=== PATIENT | male | born 1970 | race Caucasian/White ===

== ENCOUNTER 2022-11-20 19:04 | Emergency (ER) | payer OTHER, SELFPAY ==
[2022-11-20 19:14] VITALS: BP 175/64; PULSE 51; RESP 18; TEMP 37.6; O2SAT 98
--- NOTE | 2022-11-20 19:14 | ED.GENADULT ---
HPI - General Adult General Chief complaint: Skin/Abscess/Foreign Body Stated complaint: man issue/tired Time Seen by Provider: 11/20/22 19:14 Source: patient, RN notes reviewed and old records reviewed Mode of arrival: ambulatory Limitations: no limitations History of Present Illness HPI narrative: 52-year-old male presents to the [facility] with complaints of pain, redness from the peroneal area. Patient states it has been going on for over week. Started draining thick purulent drainage about a week ago. States that he feels weak and tired. Has a history of diabetes, GERD, hypertension Related Data Home Medications Medication Instructions Recorded Confirmed lisinopril 10 1 tablet PO DAILY 04/15/19 11/20/22 mg-hydrochlorothiazide 12.5 mg tablet pantoprazole 40 mg tablet,delayed 40 mg PO QAM 04/15/19 11/20/22 release (Protonix) Allergies Allergy/AdvReac Type Severity Reaction Status Date / Time No Known Allergies Allergy Verified 11/20/22 19:20 Review of Systems Review of Systems: All systems reviewed & are unremarkable except as noted in HPI and below Constitutional: Constitutional: Reports no additional constitutional complaints Eyes: Eyes: Reports no additional eye complaints ENT: Reports system reviewed and no additional complaints, except as documented Cardiovascular: Cardiovascular: Reports no additional cardiovascular complaints, Denies chest pain and Denies dyspnea Respiratory: Respiratory: Reports no additional respiratory complaints, Denies chest congestion, Denies cough and Denies dyspnea Gastrointestinal: Gastrointestinal: Reports no additional gastrointestinal complaints, Denies abdominal pain, Denies nausea and Denies vomiting Musculoskeletal: Musculoskeletal: Reports no additional musculoskeletal complaints Integumentary/Breasts: Skin/Breast: Reports as per HPI Neurologic: Reports system reviewed and no additional complaints, except as documented Psychiatric: Psychiatric: Reports no additional psychiatric complaints Allergic/Immunologic: Allergic/Immunologic: Reports no additional allergic/immunologic complaints [facility] Past Medical History Medical History Diabetes mellitus GERD (gastroesophageal reflux disease) HTN (hypertension) Surgical History Surgical History H/O vasectomy Family History Family History Mother Diabetes mellitus Kidney disease Father Malignant neoplasm of prostate Hypertension COPD (chronic obstructive pulmonary disease) Social History Social History Smoking status: Never smoker Alcohol intake: never Substance use: never Substance use type: does not use Living arrangements: with family Occupation/Education: occupation Gender identity (if verbalized by the patient): Male Comments At the time of my signature, I reviewed and agree with the nursing past medical, surgical, social, and family history. There is no relevant family history pertinent to the patient complaint. Exam Const: General: cooperative, no acute distress, well developed, alert, ill appearing acutely (Mild), uncomfortable, well nourished and obese Nutritional Appearance: well nourished and obese Orientation/consciousness: patient oriented x3 Limitations: no limitations HENMT: Head: normal to inspection Ears: hearing grossly normal bilaterally and external ears normal Face/Nose/Sinus: Normal external nose present, Normal nares present, Normal nasal mucous membranes and turbinates present and normal facial exam Face and sinus: normal facial exam Eyes: General: appearance normal, both eyes and all related structures Alignment and Position: alignment normal Periorbital: periorbital findings normal Pupils: Equal, round and reactive pupils presen
== END 2022-11-20 19:30 | disposition short-term general hospital (02) ==
LOC: EXPTROY 19:08
PROVIDERS: Emergency Provider Nurse Practitioner; PCP Family Medicine
DX: L03.317 Cellulitis of buttock (principal); E11.9 Type 2 diabetes mellitus without complications; K21.9 Gastro-esophageal reflux disease without esophagitis; I10 Essential (primary) hypertension; Z98.52 Vasectomy status
CPT/HCPCS: 99212; G0463

== ENCOUNTER 2023-04-07 09:33 | Outpatient (CLI) | payer OTHER, SELFPAY ==
--- NOTE | ~2023-04-07 | CT_ITS ---
CT Scan of the Chest without Contrast: Clinical Indication: Other nonspecific abnormal finding of lung field Technique: Contiguous sections were acquired throughout the chest without intravenous contrast. Dose reduction technique was used on this scan by utilizing automated exposure control and iterative recon struction technique. The dose-length product (DLP) was 623.76 mGy-cm. COMPARISON: 10/12/2022 and 05/19/2022 Findings: There is no evidence of any significant mediastinal, hilar or axillary lymphadenopathy. Coronary angela ry calcifications are present. There is no evidence of pleural or pericardial effusion. Multiple pulmonary nodules are present, which appear to be at least focally calcified, most compatibl e with granulomatous change. Images through the upper abdomen reveal no abnormalities. Impression: Multiple pulmonary nodules, essentially stable from prior exams, suggestive of granulomatous disease. Reviewed, dictated and finalized at [facility]. [employer] Impression: Multiple pulmonary nodules, essentially stable from prior exams, suggestive of granulomatous disease.
== END 2023-04-07 09:34 | disposition home or self-care (01) ==
PROVIDERS: PCP Family Medicine; Visit Provider Physician Assistant
DX: R91.8 Other nonspecific abnormal finding of lung field (principal)
CPT/HCPCS: 71250

== ENCOUNTER 2024-12-19 16:57 | Outpatient (CLI) | payer OTHER, SELFPAY ==
--- OUTSIDE RECORDS SUMMARY | 2024-12-19 17:11 | XMS_ITS | Encounter Summary ---
Author Organization [facility] Address [address] [place] [id number] Care Team Providers Care Perinatal Specialist Name Role Phone Alden Glover MD Primary Care Provider [phone] Encounter Details Date Type Department Care Team (Late st Contact Info) Description 08/19/2023 MyChart Message Enc [facility] Family Medicine - [place] [address], [address] [place] [phone] Alden Glover MD [address] [place] [address] Lab Results Social History Tobacco Use Types Packs/Day Years Used Date Smoking Tobacco: Never Smokeless Tobacco: Never Alcohol Use Standard Drinks/Week Comments Never 0 (1 standard drink = 0.6 oz pur e alcohol) PHQ-2 Answer Date Recorded Patient Health Questionnaire-2 Score 0 08/19/2023 Sex and Gender Information Value Date Recorded Sex Assigned at Male 10/25/2024 8:02 AM CDT Legal Sex Male 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
--- OUTSIDE RECORDS SUMMARY | 2024-12-19 17:11 | XMS_ITS | Clinical Summary ---
Author Organization [facility] Address [address] [facility] [place] [address] Care Team Providers Care Senior Commissary Agent Name Role Phone Alden Glover MD Primary Care Provider [phone] [facility],non-owned Affiliates and Associated Physician Practices is amultiple site organization consisting of ambulatory clinics and hospital sitesin [place], [place] and [place]. This disclosure is being madepursuant to the Care Everywhere program and may not contain all information available regarding this patient. Last updated 17.[facility] Allergies No known active allergies Medications * Be aware that medications may not be up to date on this document. Alwaysverify current medications with the patient. Bacillus Coagulans-Inuli n (Probiotic) 1-250 BILLION-MG CAPS Acti ve Cholecalciferol (Vitamin D) 125 MCG (5000 UT) CAPS Active Multiple Vitamins-Minera ls (Multi Vitamin/Mineral s) TABS Take 1 (one) tablet by mouth once daily Active lisinopril-hydr oCHLOROthiazide (Prinzide; Zestoretic) 10-12.5 MG tablet Take 1 (one) tablet by mouth once daily Active pantoprazole EC (Protonix) 20 MG tablet Take 1 (one) tablet by mouth once daily Active sildenafil (Viagra) 100 MG tablet Take 1 (one) tablet by mouth as needed FOR ERECTILE DYSFUNCTION 5 Active celecoxib (CeleBREX) 200 MG capsule Take 1 (one) capsule by mouth 2 times daily 120 capsule 1 5 Active Encounters Date Type Department Care Team Description 10/10/2024 3:33 PM CDT - 10/10/2024 11:59 PM CDT Hospital Encounter [facility] [address] [place] [phone] Discharge Disposition: Home or Self Care 10/10/2024 3:00 PM CDT Office Visit [facility] - Rheumatology [address] [place] [address], [place] [address] Evon Dixon MD HLA B27 (HLA B27 positive) (Primary Dx) 10/10/2024 Travel 09/26/2024 Refill [facility] - Rheumatology [address] [place] [phone] Evon Dixon MD MEDICATION REFILL from Last 3 Months Social History Tobacco Use Types Packs/Day Years Used Date Smoking Tobacco: Never Smokeless Tobacco: Never Tobacco Cessation:Counseling Given: Not Answered Alcohol Use Standard Drinks/Week Comments Never 0 (1 standard drink = 0.6 oz pur e alcohol) PHQ-2 Answer Date Recorded Patient Health Questionnaire-2 Score 0 03/10/2024 Sex and Gender Information Value Date Recorded Sex Assigned at Not on file Legal Sex Male 9:44 PM CDT Gender Identity Not on file Sexual Orientation Not on file Last Filed Vital Signs Vital Sign Reading Time Taken Comments Blood Pressure 142/70 06/06/2024 2:42 PM CDT Pulse 66 06/06/2024 2:31 PM CDT Temperature 36.2 C (97.1 F) 10/10/2024 2:53 PM CDT Respiratory Rate - - Oxygen Saturation 93% 03/10/2024 8:32 AM PROMOTIONS ASSOCIATE Inhaled Oxygen Concentration - - Weight 150.2 kg (331 lb 3.2 oz) 10/10/2024 2:53 PM CDT Height 170.2 cm (5' 7.01) 10/10/2024 2:53 PM CD T Body Mass Index 51.86 10/10/2024 2:53 PM CDT Plan of Treatment Upcoming Encounters Date Type Department Care Team (Late st Contact Info) Description 02/06/2025 3:30 PM PROMOTIONS ASSOCIATE Office Visit [facility] - Rheumatology [address] [place] [phone] Evon Dixon MD [address] [place] [address]VD [place] [address] Health Maintenance Due Date Last Done Comments COLOGUARD (AGES 45-75) - COLON CA SCREENING 1972 CT COLONOGRAPHY - COLON CA SCREENING 1972 FIT - COLON CA SCREENING 1972 FLEX SIG - COLON CA SCREENING 1972 HIV SCREENING 06/15/1987 DTAP/TDAP/TD VACCINES (1 - Tdap) 06/15/1991 HEPATITIS B VACCINE (1 of 3 - 19+ 3-dose series) 06/15/1991 PNEUMOCOCCAL VACCINE 50+ (1 of 1 - PCV) 2022 ZOSTER VACCINE (1 of 2) 2022 DEPRESSION SCREENING 03/23/2024 03/10/2024 COVID-19 VACCINE (4 - season) 2024 06/22/2021, 07/10/2020, 06/19/2020 INFLUENZA VACCINE (#1) 2024 , 04/24/2020, 04/29/2019, Additional history exists SCREENING FOR DIABETES 10/11/2027 10/10/2024, 2023 LIPID TESTING 11/21/2027 11/20/2022, 11/14/2021 COLON MONITORING 09/27/2031 09/26/2021 COLONOSCOPY - COLON CA SCREENING 09/27/2031 09/26/2021 Colorectal Cancer Screening 09/27/2031 HEPATITIS C SCREENING Completed 10/10/2024, 022 HIB VACCINE Aged Out No longer eligi ble based on patient's age to complete this topic HPV VACCINE Aged Out No longer eligi ble based on patient's age to complete this topic MENINGOCOCCAL (Group B) VACCINE SHARED DECISION-MAKING Aged Out No longer eligible based on patient's age to complete this topic MENINGOCOCCAL GROUPS A/C/Y/W VACCINE Aged Out No longer eligible based on patient's age to complete this topic Procedures Procedure Name Priority Date/Time Associated Diagnosis Comments HEPATITIS B SURFACE ANTIBODY QUANT Routine 10/10/2024 3:41 PM CDT HLA B27 (HLA B27 positive) HEPATITIS C ANTIBODY Routine 10/10/2024 3:41 PM CDT HLA B27 (HLA B27 positive) HEPATITIS B SURFACE ANTIGEN W RFLX CONFIRMATION Routine 10/10/2024 3:41 PM CDT HLA B27 (HLA B27 positive) HEPATITIS B CORE ANTIBODY TOTAL Routine 10/10/2024 3:41 PM CDT HLA B27 (HLA B27 positive) QUANTIFERON-TB GOLD PLUS 4-TUBE Routine 10/10/2024 3:41 PM CDT HLA B27 (HLA B27 positive) ERYTHROCYTE SEDIMENTATION RATE Routine 10/10/2024 3:41 PM CDT HLA B27 (HLA B27 positive) C-REACTIVE PROTEIN Routine 10/10/2024 3: 41 PM CDT HLA B27 (HLA B27 positive) COMPREHENSIVE METABOLIC PANEL Routine 10/10/2024 3:41 PM CDT HLA B27 (HLA B27 positive) CBC W AUTO DIFFERENTIAL Routine 10/10/2024 3:41 PM CDT HLA B27 (HLA B27 positive) from Last 3 Months Results * QUANTIFERON-TB GOLD PLUS 4-TUBE (10/10/2024 3:41 PM CDT) QuantiFERON Mitogen Minus NIL 9.96 IU/mL 10/13/2024 4:01 AM CDT [facility] ([facility]) QuantiFERON Nil Value 0.04 IU/mL 10/13/2024 4:01 AM CDT [facility] ([facility]) QuantiFERON Plus TB1 Minus NIL 0.06 <=0.34 IU/mL 10/13/2024 4:01 AM CDT [facility] ([facility]) QuantiFERON Plus TB2 Minus NIL 0.08 <=0.34 IU/mL 10/13/2024 4:01 AM CDT [facility] ([facility]) QuantiFERON-TB Gold Plus Negative Negative 10/13/2024 4:01 AM CDT [facility] ([facility]) Comment: INTERPRETIVE INFORMATION:Quantiferon TB Gold Plus Interferon gamma release is measured for specimens from each of the four collection tubes. A qualitative result (Negative, Positive, or Indeterminate) is based on interpretation of the four values: NIL, MITOGEN minus NIL (MITOGEN-NIL), TB1 minus NIL (TB1-NIL), and TB2 minus NIL (TB2-NIL). The NIL value represents nonspecific reactivity produced by the patient specimen. The MITOGEN-NIL value serves as the positive control for the patient specimen, demonstrating successful lymphocyte activity. The TB1-NIL tube specifically detects CD4+ lymphocyte reactivity, specifically stimulated by the TB1 antigens. The TB2-NIL tube detects both CD4+ and CD8+ lymphocyte reactivity, stimulated by TB2 antigens. An overall Negative result does not completely rule out TB infection. A false-positive result in the absence of other clinical evidence of TB infection is not uncommon. Refer to: Updated Guidelines for Using Interferon Gamma Release Assays to Detect Mycobacterium tuberculosis Infection -- [place], 2010 (http://www.cdc.gov/mmwr/preview/mmwrhtml/sc9611e2.htm), for more information concerning test performance in low-prevalence populations and use in occupational screening. Performed By: [employer] [address] [place] [address] Aviation Electronics Technician: Pro Loo MD, PhD CLIA Number: [id number] Blood BLOOD SPECIMEN / Unknown Lab Venipuncture / Unknown 10/10/2024 3:41 PM CDT 10/10/2024 4:12 PM CDT James Saucedo MD LAB - CHEMISTRY ORDERABLES Final Result [facility] ([facility]) [address] [place] [address], [facility] * HEPATITIS B SURFACE ANTIBODY QUANT (10/10/2024 3:41 PM CDT) [facility] Hepatitis B Virus Surface Antibody Non-react justin Non-react justin 10/10/2024 4:56 PM CDT [facility] Comment: < 8 mIU/mL Hepatitis B surface Antibody (HBsAb). Nonreactive for HBsAb - individual is considered not immune to Hepatitis B Virus infection. Hepatitis B Surface Antibody Quantitative <3.0 <8.0 mIU/mL 10/10/2024 4:56 PM CDT [facility] Comment: Hepatitis B Surface Antibody Numeric Result Interpretation: Nonreactive: <8.0 mIU/mL Indeterminate: 8.0 - 12.0 mIU/mL Reactive: >12.0 mIU/mL Blood BLOOD SPECIMEN / Unknown Lab Venipuncture / Unknown 10/10/2024 3:41 PM CDT 10/10/2024 4:05 PM CDT Narrative [facility] - 10/10/2024 4:56 PM CDT This assay should not be used for blood, plasma, or tissue donor screening. This assay is not recommended for neonates born to HBV-infected or suspected HBV-infected mothers. us James Saucedo MD LAB - SEROLOGY ORDERABLES Final Result Performing Organization Address City/[facility]/ZIP Co de Phone Number [address] [address], [facility] [phone] * C-REACTIVE PROTEIN (10/10/2024 3:41 PM CDT) C-Reactive Protein <0.5 <=0.5 mg/dL 10/10/2024 4:40 PM CDT [facility] Blood BLOOD SPECIMEN / Unknown Lab Venipuncture / Unknown 10/10/2024 3:41 PM CDT 10/10/2024 4:09 PM CDT us James Saucedo MD LAB - CHEMISTRY ORDERABLES Final Result [address] [address], [facility] [phone] * ERYTHROCYTE SEDIMENTATION RATE (10/10/2024 3:41 PM CDT) Erythrocyte Sedimentation Rate Westergren 9 0 - 20 MM/HR 10/10/2024 4:41 PM CDT [facility] Blood BLOOD SPECIMEN / Unknown Lab Venipuncture / Unknown 10/10/2024 3:41 PM CDT 10/10/2024 4:10 PM CDT us James Saucedo MD LAB - HEMATOLOGY ORDERABLES Carolyn festus Result [facility] [address] [place] [address], [facility] [phone] * CBC WITH DIFFERENTIAL (10/10/2024 3:41 PM CDT) WBC 9.4 4.0 - 10.7 x10E9/L 10/10/2024 4:20 PM CDT [facility] RBC Count 5.19 4.30 - 5.80 x10E12/L 10/10/2024 4:20 PM T [facility] Hemoglobin 14.7 13.3 - 17.5 g/dL 10/10/2024 4:20 PM [facility] Hematocrit 43.1 38.7 - 51.1 % 10/10/2024 4:20 PM [facility] MCV 83.0 80.0 - 98.0 fL 10/10/2024 4:20 PM T [facility] MCH 28.3 26.7 - 33.6 pg 10/10/2024 4:20 PM T [facility] MCHC 34.1 31.7 - 36.3 g/dL 10/10/2024 4:20 PM [facility] RDW-CV 13.6 11.3 - 14.8 % 10/10/2024 4:20 PM [facility] Platelet Count 228 150 - 420 x10E9/L 10/10/2024 4:20 PM [facility] MPV 9.7 7.8 - 11.4 fL 10/10/2024 4:20 PM [facility] Neutrophil % 60.7 41.0 - 74.0 % 10/10/2024 4:20 PM [facility] Lymphocyte % 28.6 17.0 - 47.0 % 10/10/2024 4:20 PM [facility] Monocyte % 8.1 3.0 - 11.0 % 10/10/2024 4:[address] [facility] Eosinophil % 1.9 0.0 - 7.0 % 10/10/2024 4:20 PM CDT [facility] Basophil % 0.5 0.0 - 1.6 % 10/10/2024 4:20 PM T [facility] Immature Granulocytes % 0.2 0.0 - 1.0 % 10/10/2024 4:20 PM T [facility] Neutrophil Absolute 5.68 1.60 - 7.50 x10E9/L 10/10/2024 4:20 PM CDT [facility] Lymphocyte Absolute 2.68 1.00 - 4.40 x10E9/L 10/10/2024 4:20 PM T [facility] Monocyte Absolute 0.76 0.15 - 1.00 x10E9/L 10/10/2024 4:20 PM [facility] Eosinophil Absolute 0.18 0.00 - 0.60 x10E9/L 10/10/2024 4:20 PM [facility] Basophil Absolute 0.05 0.00 - 0.13 x10E9/L 10/10/2024 4:20 PM [facility] Blood BLOOD SPECIMEN / Unknown Lab Venipuncture / Unknown 10/10/2024 3:41 PM CDT 10/10/2024 4:10 PM CDT us James Saucedo MD LAB - HEMATOLOGY ORDERABLES Carolyn l Result Performing Organization Address [facility]/State/ZIP Co de Phone Number [address] [address], [facility] [phone] * (ABNORMAL) COMPREHENSIVE METABOLIC PANEL (10/10/2024 3:41 PM CDT) BUN 12 7 - 26 mg/dL 10/10/2024 4:40 PM T [facility] Creatinine 0.62(L) 0.71 - 1.16 mg/dL 10/10/2024 4:40 PM T [facility] Sodium 141 136 - 145 mmol/L 10/10/2024 4:40 PM T [facility] Potassium 4.2 3.5 - 4.5 mmol/L 10/10/2024 4:40 PM [facility] Chloride 104 98 - 107 mmol/L 10/10/2024 4:40 PM [facility] CO2 29 22 - 29 mmol/L 10/10/2024 4:40 PM [facility] Glucose 119(H) 70 - 99 mg/dL 10/10/2024 4:40 PM [facility] Calcium 9.6 8.4 - 10.2 mg/dL 10/10/2024 4:40 PM [facility] Protein Total 7.5 6.0 - 8.3 g/dL 10/10/2024 4:40 PM [facility] Albumin 4.5 3.4 - 5.0 g/dL 10/10/2024 4:40 PM [facility] Bilirubin Total 0.5 0.2 - 1.2 mg/dL 10/10/2024 4:40 PM [facility] Alkaline Phosphatase 62 40 - 150 U/L 10/10/2024 4:40 PM [facility] ALT 33 5 - 55 U/L 10/10/2024 4:40 PM [facility] AST 23 5 - 34 U/L 10/10/2024 4:40 PM [facility] Anion Gap 8 6 - 16 10/10/2024 4:40 PM [facility] BUN/Creatinine Ratio 19 7 - 23 10/10/2024 4:40 PM [facility] Osmolality Calculated 293 275 - 295 mOsm/kg 10/10/2024 4:40 PM [facility] Albumin/Globulin Ratio 1.5 1.1 - 2.3 10/10/2024 4:40 PM [facility] eGFR by CKD-EPI >90 >=90 mL/min/1.7 3 m2 10/10/2024 4:40 PM [facility] Comment:Estimated Glomerular Filtration Rate (eGFR) calculated using the CKD-EPI Creatinine Equation (2020), per the National Kidney Foundation and [place] Society of Nephrology recommendations. Blood BLOOD SPECIMEN / Unknown Lab Venipuncture / Unknown 10/10/2024 3:41 PM CDT 10/10/2024 4:09 PM CDT us James Saucedo MD LAB - CHEMISTRY ORDERABLES Final Result Performing Organization Address City/[facility]/ZIP Co de Phone Number [address] [address], [place] [phone] * HEPATITIS B CORE ANTIBODY TOTAL (10/10/2024 3:41 PM CDT) HBc Antibody Total Non-reacti ve Non-reacti ve 10/10/2024 4:50 PM CDT [facility] Blood BLOOD SPECIMEN / Unknown Lab Venipuncture / Unknown 10/10/2024 3:41 PM CDT 10/10/2024 4:05 PM CDT us James Saucedo MD LAB - CHEMISTRY ORDERABLES Final Result Performing Organization Address [facility] Co de Phone Number [address] [address], [place] [phone] * HEPATITIS B SURFACE ANTIGEN W RFLX CONFIRMATION (10/10/2024 3:41 PM CDT) Pathologist [facility] Hepatitis B Virus Surface Antigen Non-reacti ve Non-reacti ve 10/10/2024 4:50 PM CDT [facility] Blood BLOOD SPECIMEN / Unknown Lab Venipuncture / Unknown 10/10/2024 3:41 PM CDT 10/10/2024 4:05 PM CDT us James Saucedo MD LAB - CHEMISTRY ORDERABLES Final Result Performing Organization Address City/[facility]/ZIP Co de Phone Number [address] [address], [place] [phone] * HEPATITIS C ANTIBODY (10/10/2024 3:41 PM CDT) Pathologist [facility] Hepatitis C Antibody Non-react justin Non-reac tive 10/10/2024 4:50 PM CDT [facility] Comment:Hepatitis C Antibody screen indicates no serologic evidence of past or current infection with Hepatitis C Virus. Patients with unexplained liver disease who are immunocompromised or suspected of having acute Hepatitis C infection may benefit from Nucleic Acid Test (HEATHER) for Hepatitis C Viral RNA to confirm Hepatitis C status. Blood BLOOD SPECIMEN / Unknown Lab Venipuncture / Unknown 10/10/2024 3:41 PM CDT 10/10/2024 4:05 PM CDT James Saucedo MD LAB - CHEMISTRY ORDERABLES Final Result [facility] [address] [place] [address], [facility] [phone] from Last 3 Mon[place] [address] [employer] Care Teams Senior Commissary Agent Relationship Specialty Start Date End Date Alden lGover MD [address] [facility] [address] [place] [address] PCP - General Family Medicine 08/13/23
--- OUTSIDE RECORDS SUMMARY | 2024-12-19 17:11 | XMS_ITS | Encounter Summary ---
Author Organization [facility] Address [address] [place] [address] Phone Care Team Providers Care Sheet Metal Journeyman Name Role Phone Trang Ford MD Primary Care Provider Reason for Visit * Reason Comments Medication Refill Encounter Details Date Type Department Care Team (Late st Contact Info) Description 04/22/2020 Refill [facility] Medical Group - [facility] [address] [place] [address] [facility] [address] [place] [address] Medication Refill Social History Tobacco Use Types Packs/Day Years Used Date Smoking Tobacco: Never Smokeless Tobacco: Never Alcohol Use Standard Drinks/Week Comments No 0 (1 standard drink = 0.6 oz pur e alcohol) PHQ-2 Answer Date Recorded Total Score - Questions 1-9 0 04/2020 Sexually Active Control Partners Comments Not Currently Sex and Gender Information Value Date Recorded Sex Assigned at Not on file Legal Sex Male 11:53 AM CDT Gender Identity Not on file Sexual Orientation Not on file COVID-19 Exposure Response Date Recorded In the last month, have you been in contact with someone who was confirmed or suspected to have Coronavirus / COVID-19? No / Unsure 04/24/2020 1:32 PM WELCOME WAGON HOST/HOSTESS documented as of this encounter Miscellaneous Notes * Telephone Encounter - Emily Ortiz RN - 04/24/2020 3:06 PM CST The original prescription was reordered on 04/24/2020 by Trang Ford MD. duplicate OME WAGON HOST/HOSTESS * Telephone Encounter - Emily Ortiz RN - 04/23/2020 10:23 AM CST OV 04/24/20 OME WAGON HOST/HOSTESS documented in this encounter Plan of Treatment Not on file documented as of this encounter Visit Diagnoses Not on filedocumented in this encounter Additional Health Concerns Infection Onset Date Last Indicated Resolved Time COVID - 19 Confirmed 03/28/2021 03/28/2021 022 12:16 AM WELCOME WAGON HOST/HOSTESS Assessment Noted Time PHQ-9 Depression Total Score: 0 05/05/19 20 1:12 PM WELCOME WAGON HOST/HOSTESS documented as of this encounter Care Teams Sheet Metal Journeyman Relationship Specialty Start Date End Date Trang Ford MD PCP - General Family Medicine 03/10/17 08/12/21 documented as of this encounter
--- OUTSIDE RECORDS SUMMARY | 2024-12-19 17:11 | XMS_ITS | Encounter Summary ---
Author Organization [facility] Address [address] [place] [address] Care Team Providers Care Kiln Cleaner Name Role Phone Alden Glover MD Primary Care Provider [phone] Encounter Details Date Type Department Care Team (Late st Contact Info) Description 09/02/2024 MyChart Message Enc [facility] Family Medicine - [place] [address], [address] [place] [phone] Alden Glover MD [address] [facility] [address] [place], [place] [phone] New patient Social History Tobacco Use Types Packs/Day Years Used Date Smoking Tobacco: Never Smokeless Tobacco: Never Alcohol Use Standard Drinks/Week Comments Never 0 (1 standard drink = 0.6 oz pur e alcohol) PHQ-2 Answer Date Recorded Patient Health Questionnaire-2 Score 0 08/19/2023 Sex and Gender Information Value Date Recorded Sex Assigned at Male 10/25/2024 8:02 AM CDT Legal Sex Male 11:11 AM SOCIAL WORKER MASTERS Gender Identity Male 08/05/2021 6:16 AM CDT Sexual Orientation Straight 08/05/2021 6: 16 AM CDT documented as of this encounter Plan of Treatment Upcoming Encounters Date Type Department Care Team (Late st Contact Info) Description 01/23/2025 8:00 AM SOCIAL WORKER MASTERS Allied Health/Nurse Visit [facility] Family Medicine - [place] [address], [address] [place] [phone] Alden Glover MD [address] [facility] [address] [place] [address] documented as of this encounter Visit Diagnoses Not on filedocumented in this encounter Care Teams Kiln Cleaner Relationship Specialty Start Date End Date Alden Glover MD [address] [facility] [address] [place], [place] [address] PCP - General FAMILY PRACTICE 08/07/21 documented as of this encounter
--- OUTSIDE RECORDS SUMMARY | 2024-12-19 17:11 | XMS_ITS | Encounter Summary ---
Author Organization [facility] Address [address] [place] [address] Care Team Providers Care Principle Software Engineer Name Role Phone Alden Glover MD Primary Care Provider [phone] Encounter Details Date Type Department Care Team (Late Contact Info) Description 12/08/2022 Abstract [facility] BUSINESS OFFICE [address] [place] [address] Abstract, Doc Med Group Social History Tobacco Use Types Packs/Day Years Used Date Smoking Tobacco: Never Smokeless Tobacco: Never Alcohol Use Standard Drinks/Week Comments Not Currently 0 (1 standard drink = 0.6 oz pur e alcohol) PHQ-2 Answer Date Recorded Patient Health Questionnaire-2 Score 0 05/12/2022 Sex and Gender Information Value Date Recorded Sex Assigned at Male 10/25/2024 8:02 AM CDT Legal Sex Male 11:11 AM EXERCISE EQUIPMENT REPAIR TECHNICIAN Gender Identity Male 08/05/2021 6:16 AM CDT Sexual Orientation Straight 08/05/2021 6: 16 AM CDT documented as of this encounter Plan of Treatment Upcoming Encounters Date Type Department Care Team (Late st Contact Info) Description 01/23/2025 8:00 AM EXERCISE EQUIPMENT REPAIR TECHNICIAN Allied Health/Nurse Visit [facility] Medical Group Family Medicine - [place] [address] [facility], [address] [place] [phone] Alden Glover MD [address] [facility] [address] [place] [address] documented as of this encounter Procedures Procedure Name Priority Date/Time Associated Diagnosis Comments HEMOGLOBIN, GLYCOSYLATED Routine 11/20/2022 LIPID PANEL Routine 11/20/2022 documented in this encounter Results * LIPID PANEL (11/20/2022) CHOLESTEROL 169 HDL 38 TRIGLYCERIDES 83 NON HDL CHOLESTEROL 131 CHOL/HDL RATIO 4 LDL (CALCULATED) 114 11/20/2022 us [employer] [facility] Abstract LABORATORY Final Res ult * HEMOGLOBIN, GLYCOSYLATED (11/20/2022) HGB A1C 6.9 % 11/20/2022 us [facility] Abstract LABORATORY Final Res ult documented in this encounter Visit Diagnoses Not on filedocumented in this encounter Care Teams Principle Software Engineer Relationship Specialty Start Date End Date Alden Glover MD [address] [address] [place] [address] PCP - General FAMILY PRACTICE 08/07/21 documented as of this encounter
--- OUTSIDE RECORDS SUMMARY | 2024-12-19 17:11 | XMS_ITS | Encounter Summary ---
Author Organization [facility] Address [address] [place] [address] Phone Care Team Providers Care Small Electric Engine Technician Name Role Phone Unavailable Primary Care Provider Unavailabl e Reason for Visit * Reason Comments Medication Refill Encounter Details Date Type Department Care Team (Late st Contact Info) Description 11/07/2021 Refill [facility] Medical Group - [facility] [address] [place] [address] [place] [address] [place] [address] Medication Refill Social History Tobacco Use Types [...] on file Sexual Orientation Not on file documented as of this encounter Plan of Treatment Not on file documented as of this encounter Visit Diagnoses Not on filedocumented in this encounter Additional Health Concerns Assessment Noted Time PHQ-9 Depression Total Score: 0 04/24/19 21 1:40 PM SUPERVISOR HARVESTING documented as of this encounter
--- OUTSIDE RECORDS SUMMARY | 2024-12-19 17:11 | XMS_ITS | Encounter Summary ---
Author Organization [facility] Address [address] [place] [address] Phone Care Team Providers Care Digester Hand Name Role Phone Trang Ford MD Primary Care Provider Reason for Visit * Reason Comments Medication Refill Encounter Details Date Type Department Care Team (Late st Contact Info) Description 08/12/2021 Refill [facility] - [facility] [place] [address] [place] [address] [place] [address] [place] [address] Medication Refill Social History Tobacco Use Types [...] Total Score: 0 04/24/19 21 1:40 PM ECHOCARDIOGRAPHY RADIOLOGY TECHNOLOGIST documented as of this encounter Care Teams Digester Hand Relationship Specialty Start Date End Date Trang Ford MD PCP - General Family Medicine 03/10/17 08/12/21 documented as of this encounter
--- OUTSIDE RECORDS SUMMARY | 2024-12-19 17:11 | XMS_ITS | Encounter Summary ---
Author Organization [facility] Address [address] [place] [address] Care Team Providers Care Principal Account Clerk Name Role Phone Alden Glover MD Primary Care Provider [phone] Encounter Details Date Type Department Care Team (Late st Contact Info) Description 06/04/2022 MyChart Message Enc [facility] Medical Group Family Medicine - [place] [address], [address] [place] [phone] Alden Glover MD [address] [place] [address] PET Scan Social History Tobacco Use Types Packs/Day Years Used Date Smoking Tobacco: Never Smokeless Tobacco: Never Alcohol Use Standard Drinks/Week Comments Not Currently 0 (1 standard drink = 0.6 oz pur e alcohol) PHQ-2 Answer Date Recorded Patient Health Questionnaire-2 Score 0 05/12/2022 Sex and Gender Information Value Date Recorded Sex Assigned at Male 10/25/2024 8:02 AM CDT Legal Sex Male 11:11 AM TAKE UP OPERATOR Gender Identity Male 08/05/2021 6:16 AM CDT Sexual Orientation Straight 08/05/2021 6: 16 AM CDT COVID-19 Exposure Response Date Recorded In the last 10 days, have yo u been in contact with someone who was confirmed or suspected to have Coronavirus/COVID-19? No / Unsure 06/03/2022 1:15 PM CDT documented as of this encounter Plan of Treatment Upcoming Encounters Date Type Department Care Team (Late st Contact Info) Description 01/23/2025 8:00 AM TAKE UP OPERATOR Allied Health/Nurse Visit [facility] Medical Group Family Medicine - [place] [address] [place] [address] Alden Glover MD [address] [facility] [address] [place] [address] documented as of this encounter Visit Diagnoses Not on filedocumented in this encounter Care Teams Principal Account Clerk Relationship Specialty Start Date End Date Alden Glover MD [address] [facility] [address] [place] [address] PCP - General FAMILY PRACTICE 08/07/21 documented as of this encounter
--- OUTSIDE RECORDS SUMMARY | 2024-12-19 17:11 | XMS_ITS | Encounter Summary ---
Author Organization [facility] Address [address] [place] [address] Phone Care Team Providers Care Donor Specialist Name Role Phone Trang Ford MD Primary Care Provider Reason for Visit * Reason Comments Medication Refill Encounter Details Date Type Department Care Team (Late st Contact Info) Description 07/01/2021 Refill [facility] - [facility] [address] [place] [address] [place] [address] [place] [address] Medication Refill Social History Tobacco Use Types [...] documented as of this encounter Visit Diagnoses Diagnosis Essential hypertension Unspecified essential hypertension documented in this encounter Additional Health Concerns Assessment Noted Time PHQ-9 Depression Total Score: 0 04/24/19 21 1:40 PM SANITATION WORKER CLEANING EQUIPMENT documented as of this encounter Care Teams Donor Specialist Relationship Specialty Start Date End Date Trang Ford MD PCP - General Family Medicine 03/10/17 08/12/21 documented as of this encounter
--- OUTSIDE RECORDS SUMMARY | 2024-12-19 17:11 | XMS_ITS | Clinical Summary ---
Author Organization [facility] [address] Address [address] [place] [address] Phone Care Team Providers Care Mid Level Java Developer Name Role Phone Trang Ford MD Primary Care Provider [phone] Allergies No known active allergies Medications cholecalciferol (D3-2000) 2,000 unit capsule take 1 by Oral route every day 90 3 12/19/19 11 Active betamethasone dipropionate (DIPROLENE) 0.05 % cream apply by topical route every day a thin layer to the affected area(s) 60 0 06/12/19 13 Active sildenafil (VIAGRA) 100 mg tablet TAKE 1 TABLET DAILY NEEDED APPROXIMATELY 1 HOUR BEFORE SEXUAL ACTIVITY 18 1 05/28/[address] (PROTONIX) 40 mg EC tablet TAKE 1 TABLET DAILY 90 0 05/28/19 16 Active Additional Information Patient taking differently: 20 mg oral Daily, Reported on 11/21/2022 lisinopril-hydro CHLOROthiazide (ZESTORETIC) 10-12.5 mg per tablet Take 1 tablet by mouth daily Active Active Problems Problem Noted Date Diagnosed Date Cellulitis of buttock 11/21/2022 Assessment & Plan (11/22/2022 12:04 PM CDT): Patient presenting with increased redness and pain in the perianal region. Seen by urology and general surgery, no surgical intervention - Tylenol prn - BCx NGTD - continue vanc/cefepime for now - improved pain in the area, no fevers or drainage from wound. Pulmonary nodules 11/21/2022 Assessment & Plan (11/21/2022 2:43 PM CDT): Incidentally seen on CT A/P - can follow up with his PCP outpatient for CT chest Physical deconditioning 04/27/2019 Assessment & Plan (04/27/2019 10:47 AM MANAGER INSTALLATION): Daily PT/OT. Keep as active as possible during the day. Uncontrolled type 2 diabetes mellitus with hyper glycemia 04/24/2019 Assessment & Plan (04/28/2019 12:21 PM MANAGER INSTALLATION): a1c 7.8% on home metformin. Sugars well controlled here so will restart home metformin and stop insulin, stop accuchecks. Acute respiratory failure with hypercapnia 04/20 Assessment & Plan (04/29/2019 10:34 AM MANAGER INSTALLATION): Acute issue resolved. Assessment & Plan (04/27/2019 10:45 AM MANAGER INSTALLATION): - Continue BiPAP at 20/8 cm H2O at night, with sleep, and as needed during the day; until more definitive setting available. Most recent AM-ABG from 04/25 showed acceptable levels of PaCO2 - Minimize narcotics and avoid benzos Assessment & Plan (04/26/2019 9:30 AM MANAGER INSTALLATION): - Continue BiPAP at 20/8 cm H2O at night, with sleep, and as needed during the day. - Consult sleep medicine to assess for underlying STACIE and obesity hypoventilation and residential need for PAP with sleep. - Minimize narcotics and avoid all benzos Assessment & Plan (04/25/2019 5:09 PM MANAGER INSTALLATION): Stable ABGs on current setting 20/8 with pH 7.35 and pCO2 60-68. - Continue BiPAP at 20/8 cm H2O at night, with sleep, and as needed during the day. - Consult sleep medicine to assess for underlying STACIE and obesity hypoventilation and residential need for PAP with sleep. - Minimize narcotics and avoid all benzos Assessment & Plan (04/24/2019 11:40 AM MANAGER INSTALLATION): Progressively somnolent and hypercapnic throughout 04/21/2019 despite BIPAP use in the AM. Transferred to SICU with higher BiPAP settings (20/8, BUR 12) and used it since 5pm - 4 am today. ABG showed progressive improvement. Went to OR 04/22/2019 for wound vac. Used BiPAP overnight. - Continue BiPAP at 20/8 cm H2O at night, with sleep, and as needed during the day. Check AM ABG - pCO2 65 - compensated respiratory acidemia. - Optimize nocturnal sleep disturbance and vivid dreams - reportedly some abnormal behaviors during sleep - this could be related to incompletely treated STACIE. REM behavior disorder can have these symptoms, but STACIE ir present needs to be treated first. - Would benefit from PPCU where respiratory status and BIPAP use can be monitored more closely than floor. - Would benefit from inpatient sleep study when acute issues improve to reassess for underlying STACIE and obesity hypoventilation and intermodal customer service need for PAP with sleep. - Minimize narcotics and avoid all benzos Assessment & Plan (04/24/2019 11:19 AM MANAGER INSTALLATION): STACIE/OHS. Extubated to BIPAP after surgery 20/8/30%. Refused it on floor and had hypercapnic resp failure, here in the PICRU for possible BIPAP titration. - will need sleep study, bipap at night time, oxygen prn Assessment & Plan (04/23/2019 1:24 PM MANAGER INSTALLATION): Progressively somnolent and hypercapnic throughout 04/21/2019 despite BIPAP use in the AM. Transferred to SICU with higher BiPAP settings (20/8, BUR 12) and used it since 5pm - 4 am today. ABG showed progressive improvement. Went to OR 04/22/2019 for wound vac. Used BiPAP overnight. - Continue BiPAP at 20/8 cm H2O at night, with sleep, and as needed during the day. Check AM ABG. - Optimize nocturnal sleep disturbance and vivid dreams - reportedly some abnormal behaviors during sleep - this could be related to incompletely treated STACIE. REM behavior disorder can have these symptoms, but STACIE ir present needs to be treated first. - Would benefit from PPCU where respiratory status and BIPAP use can be monitored more closely than floor. - Would benefit from inpatient sleep study when acute issues improve to reassess for underlying STACIE and obesity hypoventilation and residential need for PAP with sleep. - Minimize narcotics and avoid all benzos Assessment & Plan (04/22/2019 12:31 PM MANAGER INSTALLATION): Progressively somnolent and hypercapnic throughout yesterday despite BIPAP use in the AM. Transferred to SICU with higher BiPAP settings (20/8, BUR 12) and used it since 5pm - 4 am today. ABG showed progressive improvement. - Continue BiPAP at 20/8 tonight. - Optimize nocturnal sleep disturbance and vivid dreams; primary team planning on seroquel. - Will benefit from PPCU for BiPAP titration and rehabilitation, but would like to ensure that his sleep distrubance is better controlled tonight. In addition, he has OR planned tonight, would like to see that he recovers well from the operation prior to PPCU admission. - OOB/IS/pulmonary toilet - minimize narcotics and avoid all benzos Assessment & Plan (04/21/2019 10:01 AM MANAGER INSTALLATION): Normal sleep study 10 years ago, but has gained 120 pounds since then. He also has significant STACIE symptoms such as morning headaches and daytime sleepiness. His BMP on arrival showed bicarbonate of 28 despite lactate of 3. This suggests some degree of elevated bicarbonate chronically, most likely to compensate chronic CO2 retention. His symptoms and labs are highly concerning for STACIE, possibly underlying OHS. Acutely, he is septic with high catecholamine surge, leading to higher CO2 production. In addition to his chronic factors, his CO2 retention is also worsened by atelectasis from 2x operation, morbid obesity restricting his diaphragm, and opiate pain medications. He will definitely need NPPV support especially during the night, but possibly during day time. Review of his chart showed that he spent yesterday on BIPAP. He remained on NC today, but would need follow up ABG to ensure that he does not need NPPV during the day. - Place on BiPAP this AM (18/8 50% FiO2) for 2-3 hours and recheck ABG early this afternoon to assure improvement in CO2 levels and pH. - if acidemia not improving, will need to move back to the ICU for more aggressive NIPPV - OOB/IS/pulmonary toilet - minimize narcotics and avoid all benzos - Will need outpatient sleep study. Assessment & Plan (04/20/2019 7:44 PM MANAGER INSTALLATION): Normal sleep study 10 years ago, but has gained 120 pounds since then. He also has significant STACIE symptoms such as morning headaches and daytime sleepiness. His BMP on arrival showed bicarbonate of 28 despite lactate of 3. This suggests some degree of elevated bicarbonate chronically, most likely to compensate chronic CO2 retention. His symptoms and labs are highly concerning for STACIE, possibly underlying OHS. Acutely, he is septic with high catecholamine surge, leading to higher CO2 production. In addition to his chronic factors, his CO2 retention is also worsened by atelectasis from 2x operation, morbid obesity restricting his diaphragm, and opiate pain medications. He will definitely need NPPV support especially during the night, but possibly during day time. Review of his chart showed that he spent yesterday on BIPAP. He remained on NC today, but would need follow up ABG to ensure that he does not need NPPV during the day. - Repeat ABG tonight. If pH ~7.35, can go to floor with strict warning that he requires BIPAP at night. - Continue BIPAP 18/8 50% FiO2 - Please obtain morning ABG after waking - OOB/IS/pulmonary toilet - Will need outpatient sleep study. 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 Assessment & Plan (04/25/2019 5:08 PM MANAGER INSTALLATION): - continue current abx per primary team - OR today for wound closure with urology Assessment & Plan (04/28/2019 12:20 PM MANAGER INSTALLATION): Urology and ACCS following. Hooker catheter to prevent contamination. 04/18 debridement by urology (ACCS with left inguinal area). 04/19 minimal additional debridement. 04/22 additional debridement with left testicle thigh pouch and wound vac placement. OR 04/25/19 for wound closure. - cefepime/flagyl. Clinda/vanc discontinued. - Pain: acetaminophen, oxycodone, dilaudid prn - ID consult for abx duration - total 14 day course, complete with augmentin - wound vac should fall off, t/b with urology about Hooker catheter - participating in therapy Assessment & Plan (04/22/2019 12:23 PM MANAGER INSTALLATION): - continue abx per primary team - OR today Assessment & Plan (04/20/2019 7:32 PM MANAGER INSTALLATION): - continue abx per primary team Obesity, Class III, BMI 40-49.9 (morbid obesity) 08/06/2013 Overview (06/25/2016): Obesity, morbid (more than 100 lbs over ideal weig Assessment & Plan (04/24/2019 11:23 AM MANAGER INSTALLATION): BMI 40.6. Will need director of software development consultation. Gastroesophageal reflux disease 08/06/2013 Overview (06/26/2016): GERD (gastroesophageal reflux disease) Assessment & Plan (11/21/2022 2:33 PM CDT): Continue protonix Benign essential hypertension 08/06/2013 Overview (06/26/2016): Benign essential hypertension Assessment & Plan (11/21/2022 2:35 PM CDT): Takes lisinopril HCTZ 10-12.5 at home - continue lisinopril, can hold HCTZ for now unless hypertensive Assessment & Plan (04/28/2019 12:20 PM MANAGER INSTALLATION): Hold lisinopril/hctz 10/12.5. BP controlled here. Will d/c on lisinopril 10mg qdaily. Cobalamin deficiency 08/06/2013 Overview (06/26/2016): B12 deficiency Ulcerative colitis 08/06/2013 Overview (06/26/2016): Ulcerative colitis Vitamin D deficiency 08/06/2013 Overview (06/26/2016): Vitamin D deficiency Edema 08/06/2013 Overview (06/26/2016): Edema STACIE (obstructive sleep apnea) 08/06/2013 Overview (06/26/2016): STACIE (obstructive sleep apnea) Assessment & Plan (11/21/2022 2:44 PM CDT): Home BiPAP nightly Assessment & Plan (04/29/2019 10:37 AM MANAGER INSTALLATION): -- chronic settings now available and pt firmly believes in treatment -- BiPAP 22/10 cm H2O with a Bi-Flex setting of 3, 2 lpm oxygen and HOB of 40 degrees. -- home device to be delivered today -- will f/u in [facility]. Assessment & Plan (04/28/2019 12:21 PM MANAGER INSTALLATION): Had sleep study done, needs pressure titration study. Severe sleep apnea with severe hypoxia. - sleep consult - continue current settings for now - home bipap ordered, not necessary that he stay here for it but ordered through DME Assessment & Plan (04/27/2019 10:47 AM MANAGER INSTALLATION): Appears to have very severe STACIE/OHS. --Request titration study to provide best settings, mask-fit. --Ok to use Ramelteon or Rozerem for sleep induction, as needed. Immunizations Immunization Administration Dates Next Due Influenza, Quadrivalent, Spl it, Preservative Free, Intramuscular 04/29/2019 MMR 05/27/2006 Tdap 08/08/2008 Surgical History Surgery Date Site/Laterality Comments OTHER SURGICAL HISTORY 04/18/2019 Debridement perineum Medical History Medical History Date Comments Diabetes mellitus GERD (gastroesophageal reflux disease) Kyphosis HTN (hypertension) Lower extremity edema Wallace's gangrene (HCC) Type 2 diabetes mellitus Family History Medical History Relation Name Comments Colon cancer Father Cancer -colon; Ulcerative colitis Father Ulcerativ e colitis; Diabetes Mother Diabetes mellit us; Other Sister 2 Alive and well; Ulcerative colitis Sister 3 Ulcerativ e colitis; Relation Name Status Comments Father Mother Sister 1 Alive Sister 2 Sister 3 Social History Tobacco Use Types Packs/Day Years Used Date Smoking Tobacco: Never Smokeless Tobacco: Never Alcohol Use Standard Drinks/Week Comments No 0 (1 standard drink = 0.6 oz pur e alcohol) Personal Safety Answer Date Recorded Have you ever been in or are you currently in a harmful physical or emotional relationship or is someone making you feel afraid or unsafe? Denies 11/21/2022 Sex and Gender Information Value Date Recorded Sex Assigned at Not on file Legal Sex Male 12:48 PM MANAGER INSTALLATION Gender Identity Male 07/20/2019 12:49 PM CDT Sexual Orientation Straight 07/20/2019 12 :49 PM CDT Obstetrics History Last Filed Vital Signs Vital Sign Reading Time Taken Comments Blood Pressure 144/74 11/22/2022 9:00 AM CDT Pulse 77 11/22/2022 9:00 AM CDT Temperature 36.4 C (97.6 F) 11/22/2022 9:00 AM CDT Respiratory Rate 20 11/22/2022 9:00 AM CDT Oxygen Saturation 97% 11/22/2022 9:00 AM CDT Inhaled Oxygen Concentration - - Weight 150 kg (330 lb 12.8 oz) 11/21/2022 5:14 P M CDT Height 170.2 cm (5' 7) 11/21/2022 4:25 PM CDT Body Mass Index 51.81 11/21/2022 4:25 PM CDT Plan of Treatment Health Maintenance Due Date Last Done Comments Albumin Creatinine Ratio, Urine 1972 Colon Cancer Screening-Colonoscopy 1972 Depression Screening 1972 Hepatitis C Screening 1972 Prostate Cancer Screening-PSA 1972 Dilated Eye Exam 1972 Foot Exam 1972 Hepatitis B Screening 1990 Regular Well Visit/Exam 18-64 1990 Pneumococcal vaccine <65 (1 of 2 - PCV) 06/15/1991 DTaP/Tdap/Td Vaccine (2 - Td or Tdap) 08/08/2018 08/08/2008 Zoster Vaccine (1 of 2) 2022 Hemoglobin A1C 05/21/2023 11/20/2022, 04/20/2019 Lipid Panel 11/21/2023 11/20/2022, 03/24, 03/12/2017, Additional history exists eGFR 11/21/2023 11/20/2022 Covid-19 Vaccine (3 - 2024-2 6 season) 2024 07/10/2020, 06/19/2020 Influenza Vaccine (#1) 2024 , 04/24/2020, 04/29/2019, Additional history exists Procedures Procedure Name Priority Date/Time Associated Diagnosis Comments EGFR STAT 11/20/2022 9:19 PM CDT HEMOGLOBIN A1C Routine 11/20/2022 9:19 PM CDT LIPID PANEL STAT 11/20/2022 9:19 PM CDT from Last 3 Months or Most Recently Relevant to Health Maintenance Results * eGFR (11/20/2022 9:19 PM CDT) eGFR >90 90 - 130 mL/min/1. 73 m2 [facility] Comment: Interpretive Data Reference Interval Normal >/= 90 mL/min/1.73m2 Mildly decreased* 60 - 89 mL/min/1.73m2 Mildly to moderately decreased 45 - 59 mL/min/1.73m2 Moderately to severely decreased 30 - 44 mL/min/1.73m2 Severely decreased 15 - 29 mL/min/1.73m2 Kidney Failure < 15 mL/min/1.73m2 *Relative to young adult level Estimated glomerular filtration rate is determined by the 2020 CKD-EPI equation recommended by the National Kidney Foundation (A Unifying Approach to GFR Estimation: Recommendations of the NKF-ASK Task Force on Reassessing the Inclusion of Race in Diagnosing Kidney Disease, JASN 2020). The CKD-EPI equation should not be used for patients with unstable renal function and has not been validated in children and those over 70. Current interpretive data was last reviewed 2021. Blood 11/20/2022 9:19 PM CDT 11/20/2022 9:[address] [facility] Ridge Lynn MD LAB BLOOD ORDERABLES Final Res ult Performing Organization Address [facility] de Phone Number [facility] [place] [address] * (ABNORMAL) Hemoglobin A1c (11/20/2022 9:19 PM CDT) Hgb A1C 6.9(H) 4.0 - 5.6 % [facility] Estimated Average Glucose 151 mg/dL [facility] Comment: The ADA recommends reporting an estimated Average Glucose (eAG) with all Hemoglobin A1c results using the equation derived from a study of 507 normal and diabetic adults. Minority populations were underrepresented and children were not included. (Diabetes Care 2020; 43(S1): S66-S76). The eAG is not equivalent to a fasting glucose. Blood 11/20/2022 9:19 PM CDT 11/20/2022 9:[address] [facility] Araceli Lombardi MD LAB BLOOD ORDERABLES Final Result Performing Organization Address [facility] de Phone Number [facility] [place] [address] * (ABNORMAL) Lipid panel (11/20/2022 9:19 PM CDT) Cholesterol 169 30 - 199 mg/dL [facility] Comment: Interpretive Data Ages < or = 19 years Acceptable: <170 mg/dL Borderline high: 170-199 mg/dL High: >or= 200 mg/dL Ages > or = 20 years Desirable: <200 mg/dL Borderline high: 200-239 mg/dL High: >or= 240 mg/dL Literature References: 1. Expert Panel on Integrated Guidelines for Cardiovascular Health and Risk Reduction in Children and Adolescents. Pediatrics 2011;128:S213 2. NCEP Expert Panel. Circulation 2004;110:227 Current Interpretive Data was last revised on 2017. Triglycerides 83 <=149 mg/dL [facility] Comment: Interpretive Data Ages < or = 9 years Acceptable: <75 mg/dL Borderline high: 75-99 mg/dL High: >or= 100 mg/dL Ages 10 to 20 years Acceptable: <90 mg/dL Borderline high: 90-129 mg/dL High: >or= 130 mg/dL Ages > or = 20 years Desirable: <150 mg/dL Borderline high: 150-199 mg/dL High: 200-499 mg/dL Very high: >or= 499 mg/dL Literature References: 1. Expert Panel on Integrated Guidelines for Cardiovascular Health and Risk Reduction in Children and Adolescents. Pediatrics 2011;128:S213 2. NCEP Expert Panel. Circulation 2003;110:227 Current Interpretive Data was last revised on 2017. HDL 38(L) >=40 mg/dL [facility] Comment: Interpretive Data Ages < or = 19 years Acceptable: >45 mg/dL Borderline low: 40-45 mg/dL Low: <40 mg/dL Ages > or = 20 years Desirable: >or= 60 mg/dL Low: <40 mg/dL Literature References: 1. Expert Panel on Integrated Guidelines for Cardiovascular Health and Risk Reduction in Children and Adolescents. Pediatrics 2011;128:S213 2. NCEP Expert Panel. Circulation 2003;110:227 Current Interpretive Data was last revised on 2017. LDL, calculated 114 <=129 mg/dL [facility] Comment: Interpretive Data Ages < or = 19 years Acceptable: <110 mg/dL Borderline high: 110-129 mg/dL High: >or= 130 mg/dL Ages > or = 20 years Optimal: <100 mg/dL Near optimal: 100-129 mg/dL Borderline high: 130-159 mg/dL High: >160 mg/dL Literature References: 1. Expert Panel on Integrated Guidelines for Cardiovascular Health and Risk Reduction in Children and Adolescents. Pediatrics 2011;128:S213 2. NCEP Expert Panel. Circulation 2004;110:227 Current Interpretive Data was last revised on 2017. Non-HDL Cholesterol 131 mg/dL [facility] Comment: Interpretive Data Ages < or = 19 years Acceptable: <120 mg/dL Borderline high: 120-144 mg/dL High: >145 mg/dL Ages > or = 20 years When triglycerides are >200 mg/dL, Non-HDL cholesterol is a secondary target of therapy with treatment goals that are 30 mg/dL greater than the LDL cholesterol target. Literature References: 1. Expert Panel on Integrated Guidelines for Cardiovascular Health and Risk Reduction in Children and Adolescents. Pediatrics 2011;128:S213 2. NCEP Expert Panel. Circulation 2004;110:227 Current Interpretive Data was last revised on 2017. Chol/HDL ratio 4 [facility] Blood 11/20/2022 9:19 PM CDT 11/20/2022 9:35 PM CDT Araceli Lombardi MD LAB BLOOD ORDERABLES Final Result [facility] Department [place] [address] from Last 3 Months or Most Recently Relevant to Health [place] [address] [facility] HMO [facility] HMO Advance Directives For more information, please contact: [phone] * Full Code (Latest Code Status on File) Date Activated Date Inactivated Comments 11/21/2022 4:22 PM 11/22/2022 7:21 PM * Full Code Date Activated Date Inactivated Comments 04/18/2019 8:29 PM 04/29/2019 9:15 PM Care Teams Mid Level Java Developer Relationship Specialty Start Date End Date Trang Ford MD PCP - General 04/10/17
--- OUTSIDE RECORDS SUMMARY | 2024-12-19 17:11 | XMS_ITS | Clinical Summary ---
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
--- OUTSIDE RECORDS SUMMARY | 2024-12-19 17:11 | XMS_ITS | Encounter Summary ---
Author Organization [facility] Address [address] [place] [address] Phone Care Team Providers Care Cleaners Name Role Phone Trang Ford MD Primary Care Provider Reason for Visit * Reason Comments Medication Refill Encounter Details Date Type Department Care Team (Late st Contact Info) Description 06/17/2021 Refill [facility] [address] [place] [address] [place] [address] [place] [address] Medication Refill Social History Tobacco Use Types [...] Total Score: 0 04/24/19 21 1:40 PM METAL HANGER documented as of this encounter Care Teams Cleaners Relationship Specialty Start Date End Date Trang Ford MD PCP - General Family Medicine 03/10/17 08/12/21 documented as of this encounter
--- OUTSIDE RECORDS SUMMARY | 2024-12-19 17:11 | XMS_ITS | Encounter Summary ---
Author Organization [facility] Address [address] [place] [address] Care Team Providers Care Director Of Head Start Name Role Phone Alden Glover MD Primary Care Provider [phone] Encounter Details Date Type Department Care Team (Late st Contact Info) Description 05/09/2022 Epay Systemst Message Enc [facility] Family Medicine - [place] [address], [address] [place] [phone] Alden Glover MD [address] [place] [address] [place] Urine Social History Tobacco Use Types Packs/Day Years Used Date Smoking Tobacco: Never Smokeless Tobacco: Never Alcohol Use Standard Drinks/Week Comments Not Currently 0 (1 standard drink = 0.6 oz pur e alcohol) PHQ-2 Answer Date Recorded Patient Health Questionnaire-2 Score 0 05/12/2022 Sex and Gender Information Value Date Recorded Sex Assigned at Male 10/25/2024 8:02 AM CDT Legal Sex Male 11:11 AM ARCHITECTURAL REPRESENTATIVE Gender Identity Male 08/05/2021 6:16 AM CDT Sexual Orientation Straight 08/05/2021 6 :16 AM CDT COVID-19 Exposure Response Date Recorded In the last 10 days, have yo u been in contact with someone who was confirmed or suspected to have Coronavirus/COVID-19? No / Unsure 05/12/2022 7:59 AM ARCHITECTURAL REPRESENTATIVE documented as of this encounter Functional Status * Over the past 2 weeks, how often have you been bothered by any of the following problems? Question Answer Date of Assessment Author Status Little interest or pleasure in doing things Not at all 05/12/2022 8:36 AM Che Carlson MA Acti ve Feeling down, depressed, or hopeless Not at all 05/12/2022 8:36 AM ARCHITECTURAL REPRESENTATIVE Che Vincent MA Active Patient Health Questionnaire-2 Score 0 05/12/2022 8:36 AM ARCHITECTURAL REPRESENTATIVE Che Vincent M A Active documented as of this encounter Plan of Treatment Upcoming Encounters Date Type Department Care Team (Late st Contact Info) Description 01/23/2025 8:00 AM ARCHITECTURAL REPRESENTATIVE Allied Health/Nurse Visit [facility] Family Medicine - [place] [address] [facility] [address] ' [place] [address] Alden Glover MD [address] [address] [place], [place] [id number] documented as of this encounter Visit Diagnoses Not on filedocumented in this encounter Care Teams Director Of Head Start Relationship Specialty Start Date End Date Alden Glover MD [address] [address] [place], [place] [address] PCP - General FAMILY PRACTICE 08/07/21 documented as of this encounter
--- OUTSIDE RECORDS SUMMARY | 2024-12-19 17:11 | XMS_ITS | Encounter Summary ---
Author Organization [facility] Address [address] [place] [address] Phone Care Team Providers Care Front Office Associate Name Role Phone Unavailable Primary Care Provider Unavailabl e Reason for Visit * Reason Comments Medication Refill Encounter Details Date Type Department Care Team (Late st Contact Info) Description 11/10/2022 Refill [facility] - [facility] [address] [place] [address] [place] [address] [place] [address] Medication Refill Social History Tobacco Use Types [...] Total Score: 0 04/24/19 21 1:40 PM GRAVURE PRESS OPERATOR documented as of this encounter
--- OUTSIDE RECORDS SUMMARY | 2024-12-19 17:11 | XMS_ITS | Encounter Summary ---
Author Organization [facility] Address [address] [place] [address] Care Team Providers Care Dehydrogenation Converter Operator Name Role Phone Alden Glover MD Primary Care Provider [phone] Encounter Details Date Type Department Care Team (Late st Contact Info) Description 03/29/2024 MyChart Message Enc [facility] Family Medicine - [place] [address], [address] [facility] [place] [phone] Alden Glover MD [address] [facility] [address] [place] [employer], [place] [id number] New patients Social History Tobacco Use Types Packs/Day Years Used Date Smoking Tobacco: Never Smokeless Tobacco: Never Alcohol Use Standard Drinks/Week Comments Never 0 (1 standard drink = 0.6 oz pur e alcohol) PHQ-2 Answer Date Recorded Patient Health Questionnaire-2 Score 0 08/19/2023 Sex and Gender Information Value Date Recorded Sex Assigned at Male 10/25/2024 8:02 AM CDT Legal Sex Male 11:11 AM ASH CONVEYOR OPERATOR Gender Identity Male 08/05/2021 6:16 AM CDT Sexual Orientation Straight 08/05/2021 6: 16 AM CDT documented as of this encounter Plan of Treatment Upcoming Encounters Date Type Department Care Team (Late st Contact Info) Description 01/23/2025 8:00 AM ASH CONVEYOR OPERATOR Allied Health/Nurse Visit [facility] Family Medicine - [place] [address] [place] [phone] Alden Glover MD [address] [facility] [address] [place] [address] documented as of this encounter Visit Diagnoses Not on filedocumented in this encounter Care Teams Dehydrogenation Converter Operator Relationship Specialty Start Date End Date Alden Glover MD [address] [facility] [address] [place], [place] [address] PCP - General FAMILY PRACTICE 08/07/21 documented as of this encounter
--- OUTSIDE RECORDS SUMMARY | 2024-12-19 17:11 | XMS_ITS | Encounter Summary ---
Author Organization [facility] Address [address] [place] [address] Care Team Providers Care Roof Tile Layer Name Role Phone Alden Glover MD Primary Care Provider [phone] Encounter Details Date Type Department Care Team (Latest Contact Info) Description 11/10/2023 Zieglert Message Enc [facility] Multispecialty Care - [facility] [address], [address] [place] [address] Johan Lazar MD [address] [place], [place] [phone] EMG results sent to hand surgeon Social History Tobacco Use Types Packs/Day Years Used Date Smoking Tobacco: Never Smokeless Tobacco: Never Alcohol Use Standard Drinks/Week Comments Never 0 (1 standard drink = 0.6 oz pur e alcohol) PHQ-2 Answer Date Recorded Patient Health Questionnaire-2 Score 0 08/19/2023 Sex and Gender Information Value Date Recorded Sex Assigned at Male 10/25/2024 8:02 AM CDT Legal Sex Male 11:11 AM SUPERVISOR SAWING AND ASSEMBLY Gender Identity Male 08/05/2021 6:16 AM CDT Sexual Orientation Straight 08/05/2021 6: 16 AM CDT documented as of this encounter Plan of Treatment Upcoming Encounters Date Type Department Care Team (Late st Contact Info) Description 01/23/2025 8:00 AM SUPERVISOR SAWING AND ASSEMBLY Allied Health/Nurse Visit [facility] Family Medicine - [address] [facility], [address] [place] [address] Alden Glover MD [address] [id number] documented as of this encounter Visit Diagnoses Not on filedocumented in this encounter Care Teams Roof Tile Layer Relationship Specialty Start Date End Date Alden Glover MD [address] [place] [address] [address] [place], [place] [phone] PCP - General FAMILY PRACTICE 08/07/21 documented as of this encounter
--- OUTSIDE RECORDS SUMMARY | 2024-12-19 17:11 | XMS_ITS | Encounter Summary ---
Author Organization [facility] Address [address] [place] [address] Care Team Providers Care Intramural Director Name Role Phone Alden Glover MD Primary Care Provider [phone] Encounter Details Date Type Department Care Team (Late st Contact Info) Description 05/19/2022 MyChart Message Enc [facility] Family Medicine - [place] [address], [address] [place] [phone] Alden Glover MD [address] [place] [address] CHEST WO CON Social History Tobacco Use Types Packs/Day Years Used Date Smoking Tobacco: Never Smokeless Tobacco: Never Alcohol Use Standard Drinks/Week Comments Not Currently 0 (1 standard drink = 0.6 oz pur e alcohol) PHQ-2 Answer Date Recorded Patient Health Questionnaire-2 Score 0 05/12/2022 Sex and Gender Information Value Date Recorded Sex Assigned at Male 10/25/2024 8:02 AM CDT Legal Sex Male 11:11 AM COLOR SHOP HELPER Gender Identity Male 08/05/2021 6:16 AM CDT Sexual Orientation Straight 08/05/2021 6: 16 AM CDT COVID-19 Exposure Response Date Recorded In the last 10 days, have yo u been in contact with someone who was confirmed or suspected to have Coronavirus/COVID-19? No / Unsure 05/19/2022 9:37 AM COLOR SHOP HELPER documented as of this encounter Plan of Treatment Upcoming Encounters Date Type Department Care Team (Late st Contact Info) Description 01/23/2025 8:00 AM COLOR SHOP HELPER Allied Health/Nurse Visit [facility] Family Medicine - [place] [address] [place] [address] Alden Glover MD [address] [address] [place] [address] documented as of this encounter Visit Diagnoses Not on filedocumented in this encounter Care Teams Intramural Director Relationship Specialty Start Date End Date Alden Glover MD [address] [facility] [address] [address] [place] [address] PCP - General FAMILY PRACTICE 08/07/21 documented as of this encounter
--- OUTSIDE RECORDS SUMMARY | 2024-12-19 17:11 | XMS_ITS | Clinical Summary ---
Author Organization [facility] Address [address] [place] [address] Phone Care Team Providers Care Drafter Refrigeration Name Role Phone Unavailable Primary Care Provider Unavailabl e Allergies No known active allergies Medications Cholecalciferol (VITAMIN D) 2000 units Capsule Take 1 Cap by mouth daily. 1 Active Blood Glucose Monitoring Suppl DeviceIndication s:New onset of diabetes mellitus in pediatric patient Diagnosis: Diabetes type 2, E11.9 Blood testing frequency: once a day 1 Each 8 Active Lancets MiscIndications: New onset of diabetes mellitus in pediatric patient Testing once daily 90 Lancet 2 8 Active Glucose Blood (ONE TOUCH ULTRA TEST) Strip Use as directed once daily E11.9 300 Strip 3 9 Active Glucose Blood (ACCU-CHEK GUIDE) Strip Test once daily. DX E11.9 100 Strip 3 0 Active sildenafil citrate (VIAGRA) 100 MG Tablet TAKE 1 TABLET BY MOUTH NEEDED FOR ERECTILE DYSFUNCTION 10 Tablet 2 Active betamethasone valerate (VALISONE) 0.1 % Ointment Application Site: eczema on hands- apply twice daily 45 g 2 Active pantoprazole (PROTONIX) 40 MG Tablet Delayed Response Take 1 Tablet by mouth daily. 30 Tablet 2 Active metFORMIN (GLUCOPHAGE-XR) 500 MG TABLET SR 24 HR Take 2 Tablets by mouth daily. This RX is for Metformin SR. 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 Ulcerative colitis without complications 017 High blood pressure 03/10/2017 Gastroesophageal reflux disease 03/10/2017 Resolved Problems Problem Noted Date Diagnosed Date Resolved Date New onset of diabetes mellit us in pediatric patient 04/08/2017 10/13/2017 Immunizations Immunization Administration Dates Next Due Influenza Vaccine 04/27/2019 Influenza Vaccine greater than 3 yrs 04/29/2019 Influenza Vaccine, Quadrivalent, PF 04/24/2020 MMR Vaccine 05/27/2006 TDAP Vaccine 08/08/2008 Family History Medical History Relation Name Comments Ulcerative Colitis Brother Chronic Obstructive Pulmonary Disease Father Congestive Heart Failure Father Hypertension Father Prostate Cancer Father Ulcerative Colitis Father Diabetes Mother Kidney Disease Mother Ulcerative Colitis Sister Relation Name Status Comments Brother Alive Father Alive Mother Alive Sister Alive Social History Tobacco Use Types Packs/Day Years Used Date Smoking Tobacco: Never Smokeless Tobacco: Never Tobacco Cessation:Counseling Given: No Alcohol Use Standard Drinks/Week Comments No 0 [...] Sign Reading Time Taken Comments Blood Pressure 138/82 06/19/2020 2:28 PM CDT Pulse 72 06/19/2020 2:28 PM CDT Temperature 36.3 C (97.3 F) 06/19/2020 2:28 PM CDT Respiratory Rate 12 06/19/2020 2:28 PM CDT Oxygen Saturation 94% 06/19/2020 2:28 PM CDT Inhaled Oxygen Concentration - - Weight 163.3 kg (360 lb) 07/23/2020 9:00 AM CDT Height 170.2 cm (5' 7) 07/23/2020 9:00 AM CDT Body Mass Index 56.38 07/23/2020 9:00 AM CDT Plan of Treatment Health Maintenance Due Date Last Done Comments Diabetes: Foot Exam 1972 Hepatitis C Virus (HCV) Screening 1972 Hepatitis B Immunization (1 of 3 - 19+ 3-dose series) 06/15/1991 Pneumococcal Immunization (50+ years) (1 of 2 - PCV) 06/15/1991 Cologuard 2017 Colonoscopy 2017 Colorectal Cancer Screening 2017 Immunochemical Fecal Occult Blood 2017 Td Immunization Every 10 Years (Adults With 1 Tdap) 08/08/2018 08/08/2008 Diabetes: Hemoglobin A1c 10/24/2020 021, 04/20/2019, 01/26/2019, Additional history exists Diabetes: Nephropathy Screening 04/26/2021 04/26/2020, 05/27/2018, 05/26/2018, Additional history exists Diabetes: Eye Exam 06/18/2021 06/18/2020 Zoster Immunization (1 of 2) 2022 Influenza Immunization (#1) 2024 02/0 04/2020, 04/29/2019, 04/27/2019 SARS-COV-2 Immunization ( season) 2024 07/10/2020, 06/19/2020 Respiratory Syncytial Virus (RSV) Immunization (Adult) (1 - 1-dose 75+ series) 06/15/2047 Human Papillomavirus (HPV) Immunization Aged Out No longer eligible based on patient's age to complete this topic Meningococcal Immunization (ACWY) Aged Out No longer eligible based on patient's age to complete this topic Rotavirus Immunization Aged Out No lo nger eligible based on patient's age to complete this topic Procedures Procedure Name Priority Date/Time Associated Diagnosis Comments DILATED EYE EXAM Routine 06/18/2020 CMP (COMPREHENSIVE METABOLIC PANEL) Routine 04/26/2020 Type 2 diabetes mellitus without complication, unspecified whether terminal supervisor insulin use (HCC) HEMOGLOBIN A1C W/ ESTIMATED GLUCOSE Routine 04/26/2020 Type 2 diabetes mellitus without complication, unspecified whether custodial insulin use (HCC) from Last 3 Months or Most Recently Relevant to Health Maintenance Results * HM DILATED EYE EXAM (06/18/2020) us Not On File Provider PROCEDURE/MINOR SURGICAL OR DERABLES Final Result * HEMOGLOBIN A1C W/ ESTIMATED GLUCOSE (04/26/2020) HGB-A1C 7.6 % Blood 04/26/2020 us Trang Ford MD CHEMISTRY ORDERABLES Final Result * CMP (COMPREHENSIVE METABOLIC PANEL) (04/26/2020) Blood us Trang Ford MD CHEMISTRY ORDERABLES Final Result from Last 3 Months or Most Recently Relevant to Health Maintenance
--- OUTSIDE RECORDS SUMMARY | 2024-12-19 17:11 | XMS_ITS | Clinical Summary ---
Author Organization [facility] Address [address] [place] [address] Care Team Providers Care Circular Sawyer Helper Name Role Phone Alden Glover MD Primary Care Provider [phone] Allergies No known active allergies Medications Cholecalciferol (VITAMIN D) 125 MCG (5000 UT) Cap 5 Active Bacillus Coagulans-Inulin (PROBIOTIC) 1-250 BILLION-MG Cap 1 Active multi vitamin/minerals (THERA-M ENHANCED) tablet Take 1 tablet by mouth daily. Active clotrimazole (LOTRIMIN) 1 % creamIndications: Tinea Apply topically 2 (two) times daily. 113 g 3 3 Active pantoprazole EC (PROTONIX) 20 MG tabletIndications :Gastroesophageal reflux disease without esophagitis Take 1 tablet by mouth once daily 90 tablet 3 5 Active lisinopril-hydroC HLOROthiazide (ZESTORETIC) 10-12.5 MG tabletIndications :Primary hypertension Take 1 tablet by mouth once daily 90 tablet 5 Active sildenafil (VIAGRA) 100 MG tabletIndications :Vasculogenic erectile dysfunction, unspecified vasculogenic erectile dysfunction type Take 1 tablet (100 mg total) by mouth as needed for Erectile Dysfunction. 17 tablet 5 5 Active Active Problems Problem Noted Date Diagnosed Date Pulmonary nodule 12/04/2022 Atherosclerosis of aorta 07/03/2022 Atherosclerosis of both carotid arteries 023 Coronary artery disease invo lving [place] coronary artery of [place] heart without angina pectoris 07/03/2022 Calculus of gallbladder with out cholecystitis without obstruction 07/03/2022 Diabetes mellitus (CMS/HCC HHS/HCC) 08/04/2014 STACIE (obstructive sleep apnea) 08/06/2013 Overview (06/11/2022): STACIE (obstructive sleep apnea) Last Assessment & Plan: -- chronic settings now available and pt firmly believes in treatment -- BiPAP 22/10 cm H2O with a Bi-Flex setting of 3, 2 lpm oxygen and HOB of 40 degrees. -- home device to be delivered today -- will f/u in Sleep Clinic. Vitamin D deficiency 08/06/2013 Overview (06/11/2022): Vitamin D deficiency Gastroesophageal reflux disease 08/06/2013 Overview (06/11/2022): GERD (gastroesophageal reflux disease) Hypertension 08/04/2009 Erectile dysfunction 08/04/2009 Resolved Problems Problem Noted Date Diagnosed Date Resolved Date Screening for colon cancer 08/15/2021 0 05/12/2022 Overview (08/15/2021): Added automatically from request for surgery [id number] Ulcerative colitis ([facility]) 08/06/2013 06/11/2022 Overview (06/11/2022): Ulcerative colitis Encounters Date Type Department Care Team Description 10/25/2024 8:00 AM CDT Office Visit [facility] - [place] [address], [address] [place] [phone] Alden Glover MD Physical (Annual physical) 10/25/2024 Travel 09/29/2024 Results Follow-Up [facility] [place] [address], [address] [place] [address] Alden Glover MD ALBUMIN URINE RANDOM W/CREATININE, PROSTATE SPECIFIC ANTIGEN,SCREENING, COMPREHENSIVE METABOLIC PANEL, Additional followed-up results: 2 from Last 3 Months Immunizations Immunization Administration Dates Next Due Influenza (Generic) 01/17/2023,04/27/2019 Influenza Adult (Generic) 04/24/2020,04/29/2019 MMR (MMRII) 05/27/2006 PFIZER COVID-19 (ODELL CAP), MRNA, LNP-S, PF, 30 MCG/0.3 ML ALBERTO-SUCROSE, IM 06/22/2021 PFIZER COVID-19 (ORIGINAL FO RMULATION, PURPLE CAP) mRNA, LNP-S, PF, 30 MCG/0.3 ML DOSE 07/10/2020,06/19/2020 Shingrix 10/25/2024 Tdap (Adacel) 10/25/2024 Tdap (Generic) 08/08/2008 Family History Medical History Relation Comments Arthritis Father COPD Father Cancer Father Prostate Hypertension Father Arthritis Mother Cancer Mother Skin Diabetes Mother Hypertension Mother Kidney Disease Mother Relation Status Comments Father Mother Social History Tobacco Use Types Packs/Day Years Used Date Smoking Tobacco: Never Smokeless Tobacco: Never Tobacco Cessation:Counseling Given: Not Answered Alcohol Use Standard Drinks/Week Comments Never 0 (1 standard drink = 0.6 oz pur e alcohol) PHQ-2 Answer Date Recorded Patient Health Questionnaire-2 Score 0 10/25/2024 Sex and Gender Information Value Date Recorded Sex Assigned at Male 10/25/2024 8:02 AM CDT 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 Gender Identity Male 08/05/2021 6:16 AM CDT Sexual Orientation Straight 08/05/2021 6: 16 AM CDT Last Filed Vital Signs Vital Sign Reading Time Taken Comments Blood Pressure 132/80 10/25/2024 8:02 AM CDT Pulse 71 10/25/2024 8:02 AM CDT Temperature 36.2 C (97.2 F) 10/25/2024 8:02 AM CDT Respiratory Rate 16 10/25/2024 8:02 AM CDT Oxygen Saturation 95% 10/25/2024 8:02 AM CDT Inhaled Oxygen Concentration - - Weight 146.8 kg (323 lb 9.6 oz) 10/25/2024 8:02 AM CDT Height 170.2 cm (5' 7) 06/11/2022 8:39 AM CDT Body Mass Index 50.68 06/11/2022 8:39 AM CDT Plan of Treatment Upcoming Encounters Date Type Department Care Team (Late st Contact Info) Description 01/23/2025 8:00 AM BEARING PRESS MACHINE OPERATOR Allied Health/Nurse Visit [facility] Medical Group Family Medicine - [place] [address] [place] [address] Alden Glover MD [address] [place] [address], [place] [address] Health Maintenance Due Date Last Done Comments ASCVD Statin 1972 Hepatitis B Vaccines (1 of 3 - 19+ 3-dose series) 06/15/1991 Pneumococcal Vaccine: 50+ Years (1 of 2 - PCV) 06/15/1991 ASCVD LDL 11/21/2023 11/20/2022, 11/14/2021 Lipid Panel 11/21/2023 11/20/2022, 11/14/2021 COVID-19 Vaccine ( season) 2024 01/17/2023, 06/22/2021, 07/10/2020, Additional history exists Zoster Vaccines (2 of 2) 12/20/2024 10/25/2024 Diabetes: Retinopathy Eye Exam 03/18/2025 03/18/2023, 06/18/2020 Hemoglobin A1C 03/31/2025 09/28/2024, 07/22, 11/20/2022, Additional history exists Kidney Health Evaluation 09/28/2025 09/28/2024 Annual Physical 10/25/2025 10/25/2024, 06/11/2022 Colorectal Cancer Screening Colonoscopy (10 Years) 09/27/2031 09/26/2021, 09/26/2021 DTaP, Tdap and Td Vaccines (3 - Td or Tdap) 10/25/2034 10/25/2024, 08/08/2008 Hepatitis C Completed 10/10/2024, 09/21, 10/10/2024, Additional history exists PHQ-2 (Physician Cheesh-Na) Completed 10/25/2024 Meningococcal B Vaccine Aged Out No l onger eligible based on patient's age to complete this topic Meningococcal Vaccine Aged Out No lesa humaira eligible based on patient's age to complete this topic RSV Immunizations Under 20 Months Aged Out No longer eligible based on patient's age to complete this topic Procedures Procedure Name Priority Date/Time Associated Diagnosis Comments HEMOGLOBIN, GLYCOSYLATED Routine 09/28/2024 7:21 AM CDT Type 2 diabetes mellitus with other circulatory complication, with long-term current use of insulin ([facility]) Healthcare maintenance CBC W/DIFF AUTOMATED Routine 09/28/2024 7:21 AM CDT Dysuria Gross hematuria Healthcare maintenance Screening for malignant neoplasm of prostate COMPREHENSIVE METABOLIC PANEL Routine 09/28/2024 7:21 AM CDT Dysuria Gross hematuria Healthcare maintenance Screening for malignant neoplasm of prostate PROSTATE SPECIFIC ANTIGEN,SCREENING Routine 09/28/2024 7:21 AM CDT Dysuria Gross hematuria Healthcare maintenance Screening for malignant neoplasm of prostate ALBUMIN URINE RANDOM W/CREATININE Routine 09/28/2024 7:21 AM CDT Type 2 diabetes mellitus with other circulatory complication, with long-term current use of insulin ([facility]) DIABETIC RETINOPATHY EXAM (NEGATIVE)(SCAN ORDER) Routine 03/18/2023 LIPID PANEL Routine 11/20/2022 HEPATITIS C ANTIBODY W/RFX TO HCV RNA Routine 11/14/2021 7:36 AM CDT Need for hepatitis C screening test COLONOSCOPY Routine 09/26/2021 11:40 AM CDT from Last 3 Months or Most Recently Relevant to Health Maintenance Results * (ABNORMAL) HEMOGLOBIN, GLYCOSYLATED (09/28/2024 7:21 AM CDT) HGB A1C 7.0(H) <5.7 % of total Hgb [facility] [place] Comment: For someone without known diabetes, a hemoglobin A1c value of 6.5% or greater indicates that they may have diabetes and this should be confirmed with a follow-up test. For someone with known diabetes, a value <7% indicates that their diabetes is well controlled and a value greater than or equal to 7% indicates suboptimal control. A1c targets should be individualized based on duration of diabetes, age, comorbid conditions, and other considerations. Currently, no consensus exists regarding use of hemoglobin A1c for diagnosis of diabetes for children. 09/28/2024 7:21 AM CDT 09/28/2024 7:22 AM CDT Narrative [facility] - 09/29/2024 7:13 AM CDT FASTING:YES FASTING: YES Resulting Agency Comment Performing Organization Information: Site ID: [id number] Name: [facility] Address: [address] [place] [address] Director: Gill Miller us Alden Glover MD LABORATORY Final Result [address] [address], * PROSTATE SPECIFIC ANTIGEN,SCREENING (09/28/2024 7:21 AM CDT) PSA TOTAL 0.94 < OR = 2.50 ng/mL [facility] Comment: The total PSA value from this assay system is standardized against the WHO standard. The test result will be approximately 20% lower when compared to the equimolar-standardized total PSA (Benjie Lloyd). Comparison of serial PSA results should be interpreted with this fact in mind. This test was performed using the Siemens chemiluminescent method. Values obtained from different assay methods cannot be used interchangeably. PSA levels, regardless of value, should not be interpreted as absolute evidence of the presence or absence of disease. 09/28/2024 7:21 AM CDT 09/28/2024 7:22 AM CDT Narrative [facility] - 09/29/2024 7:13 AM CDT FASTING:YES FASTING: YES Resulting Agency Comment Performing Organization Information: Site ID: [place] Name: [facility] Address: [address] [address] Director: Gill Miller MD us Alden Glover MD LABORATORY Final Result Performing Organization Address [facility] de Phone Number [facility] - [place] [address] [place] [address], * ALBUMIN URINE RANDOM W/CREATININE (09/28/2024 7:21 AM CDT) CREATININE RANDOM (U) 55 20 - 320 mg/dL [facility] MICROALBUMIN (U) <0.2 See Note: mg/dL [facility] Comment: Reference Range: Reference Range Not established MICROALB/CREAT NOTE <30 mg/g creat [facility] Comment: NOTE: The urine albumin value is less than 0.2 mg/dL therefore we are unable to calculate excretion and/or creatinine ratio. The ADA defines abnormalities in albumin excretion as follows: Albuminuria Category Result (mg/g creatinine) Normal to Mildly increased <30 Moderately increased 30-299 Severely increased > OR = 300 The ADA recommends that at least two of three specimens collected within a 3-6 month period be abnormal before considering a patient to be within a diagnostic category. URINE SPECIMEN / Unknown 09/28/2024 7:21 AM CDT 09/28/2024 7:22 AM CDT Narrative [facility] [place] [facility] - 09/29/2024 7:13 AM CDT FASTING:YES FASTING: YES Resulting Agency Comment Performing Organization Information: Site ID: [id number] Name: [facility] Address: [address] [place] [id number] Director: Gill Miller MD Alden Glover MD URINE ORDERABLES Final Result Performing Organization Address [facility] Co de Phone Number [facility] [place] [facility] [id number] [place] [address], * (ABNORMAL) COMPREHENSIVE METABOLIC PANEL (09/28/2024 7:21 AM CDT) GLUCOSE 145(H) 65 - 99 mg/dL [facility] Comment: Fasting reference interval For someone without known diabetes, a glucose value >125 mg/dL indicates that they may have diabetes and this should be confirmed with a follow-up test. BUN 17 7 - 25 mg/dL [facility] CREATININE S/P/B 0.76 0.70 - 1.30 mg/dL [facility] GFR ESTIMATE 108 > OR = 60 mL/min/1. 73m2 [facility] BUN CREATININE RATIO SEE NOTE: (calc) [facility] Comment: Not Reported: BUN and Creatinine are within reference range. SODIUM S/P/B 143 135 - 146 mmol/L [facility] POTASSIUM S/P/B 4.0 3.5 - 5.3 mmol/L [facility] CHLORIDE S/P/B 105 98 - 110 mmol/L [facility] CO2 28 20 - 32 mmol/L [facility] [facility] CALCIUM S/P/B 9.8 8.6 - 10.3 mg/dL [facility] [facility] TOTAL PROTEIN S/P/B 6.9 6.1 - 8.1 g/dL [facility] [facility] ALBUMIN S/P/B 4.3 3.6 - 5.1 g/dL [facility] GLOBULIN 2.6 1.9 - 3.7 g/dL (calc) [facility] ALBUMIN/GLOBULI N RATIO 1.7 1.0 - 2.5 (calc) [facility] BILIRUBIN TOTAL S/P/B 0.4 0.2 - 1.2 mg/dL [facility] ALKALINE PHOSPHATASE S/P/B 57 35 - 144 U/L [facility] AST 23 10 - 35 U/L [facility] ALT 28 9 - 46 U/L [facility] 09/28/2024 7:21 AM CDT 09/28/2024 7:22 AM CDT Narrative [facility] [place] [facility] - 09/29/2024 7:13 AM CDT FASTING:YES FASTING: YES Resulting Agency Comment Performing Organization Information: Site ID: [id number] Name: [facility] Address: [address] [address] Director: Gill Miller MD us Alden Glover MD LABORATORY Final Result [facility] - [place] [facility] [address] [place] [address], * CBC W/DIFF AUTOMATED (09/28/2024 7:21 AM CDT) WBC 7.6 3.8 - 10.8 Thousand/u L [facility] [place] RBC 5.03 4.20 - 5.80 Million/uL [facility] [place] HGB 14.3 13.2 - 17.1 g/dL [facility] [place] HCT 44.2 38.5 - 50.0 % [facility] [place] MCV 87.9 80.0 - 100.0 fL [facility] [place] MCH 28.4 27.0 - 33.0 pg [facility] [place] MCHC 32.4 32.0 - 36.0 g/dL [facility] [place] Comment: For adults, a slight decrease in the calculated MCHC value (in the range of 30 to 32 g/dL) is most likely not clinically significant; however, it should be interpreted with caution in correlation with other red cell parameters and the patient's clinical condition. RDW 13.6 11.0 - 15.0 % [facility] [place] PLT 217 140 - 400 Thousand/u L [facility] [place] MPV 10.1 7.5 - 12.5 fL [facility] [place] ABS. NEUTROPHILS 4,431 1,500 - 7,800 cells/uL [facility] [place] ABS. LYMPHOCYTES 2,158 850 - 3,900 cells/uL [facility] [place] ABS. MONOCYTES 752 200 - 950 cells/uL [facility] [place] ABS. EOSINOPHILS 198 15 - 500 cells/uL [facility] [place] ABS. BASOPHILS 61 0 - 200 cells/uL [facility] [facility] SEG NEUTROPHILS 58.3 % [facility] [facility] LYMPHOCYTES 28.4 % [facility] MONOCYTES 9.9 % [facility] [place] EOSINOPHILS 2.6 % [facility] BASOPHILS 0.8 % [facility] 09/28/2024 7:21 AM CDT 09/28/2024 7:22 AM CDT Narrative [facility] - 09/29/2024 7:13 AM CDT FASTING:YES FASTING: YES Resulting Agency Comment Performing Organization Information: Site ID: [place] Name: [facility] Address: [address] [address] Director: Gill Miller MD Alden Glover MD LABORATORY Final Result [facility] [address] [address], * DIABETIC RETINOPATHY EXAM (NEGATIVE) (03/18/2023) [facility] Scanned SCANNING Final Resu lt Performing Organization Address [facility] Co de Phone Number [facility] ONBASE * LIPID PANEL (11/20/2022) CHOLESTEROL 169 HDL 38 TRIGLYCERIDES 83 NON HDL CHOLESTEROL 131 CHOL/HDL RATIO 4 LDL (CALCULATED) 114 11/20/2022 Result [facility] Abstract LABORATORY Final Res ult * HEPATITIS C ANTIBODY W/RFX TO HCV RNA ([facility]) (11/14/2021 7:36 AM CDT) HEPATITIS C AB NON-REACTI VE NON-REACT AGUSTO [facility] SIGNAL TO CUTOFF 0.02 <[address] [facility] Comment: HCV antibody was non-reactive. There is no laboratory evidence of HCV infection. In most cases, no further action is required. However, if recent HCV exposure is suspected, a test for HCV RNA (test code 21371) is suggested. For additional information please refer to http://education.[employer]Remotium/faq/JFC13m8 (This link is being provided for informational/ educational purposes only.) 11/14/2021 7:36 AM CDT 11/14/2021 7:36 AM CDT Alden Glover MD LABORATORY Final Result Performing Organization Address [facility] Co de Phone Number [facility] [address] [phone] from Last 3 Months or Most Recently Relevant to Health Maintenance Insurance [employer] Care Teams Circular Sawyer Helper Relationship Specialty Start Date End Date Alden Glover MD [address] [place] [address] PCP - General FAMILY PRACTICE 08/07/21
[2024-12-19 18:02] LABS: Anion Gap 9 mmol/L (4-12); Blood Urea Nitrogen 14 mg/dL (9-20); Calcium 9.2 mg/dL (8.4-10.2); Carbon Dioxide 28 mmol/L (22-30); Chloride 101 mmol/L (98-107); Estimated Glomerular Filt Rate > 60; Glucose 104 mg/dL (65-110); Potassium 3.5 mmol/L (3.4-5.0); Sodium 138 mmol/L (137-145)
== END 2024-12-19 16:58 | disposition home or self-care (01) ==
PROVIDERS: PCP Family Medicine; Visit Provider Anesthesiology
DX: Z79.899 Other long term (current) drug therapy (principal); Z01.818 Encounter for other preprocedural examination
CPT/HCPCS: 36415; 80048

== ENCOUNTER 2024-12-28 | Day surgery (SDC) | payer OTHER, SELFPAY ==
[2024-12-19 14:24] VITALS: BMI 47.0
--- NOTE | 2024-12-19 14:25 | PC.NURSE ---
[facility] has started construction of its new state of the art ER which will open Spring 2026. With this, we anticipate parking may be a challenge for some our surgical patients and families. Parking spaces are limited but are available for all Surgical, obstetrics, and ER patients sharing this lot. If you arrive and find you are having a hard time finding a parking space, please note that we understand the challenges, please drive around the hospital and park near Hospital Entrance 1. When you enter this entrance, you can ask a volunteer to direct or take you back to the surgical waiting area to check in. We appreciate everyone?s understanding of these expected challenges while we build for your future. Report to the Outpatient Waiting Room, entrance under the green pavilion located off [address], at time _0615_ on date _[id number]_. Planned Procedure Time: _08_.? Time changes happen often and if your time is changed the preop area will call you the afternoon before. - You and your visitor will be asked to self-screen and do not enter if you have any COVID symptoms. Please call surgeon if you need to reschedule. - A mask is optional within the hospital at this time. - No food or drink from midnight until time of surgery and no smoking, or chewing tobacco (or any form of nicotine). No chewing gum, candy or mints. Take only the following medications with a SIP of water on the morning of surgery: ___None DO NOT STOP ANY OF YOUR OTHER PRESCRIPTION MEDICATIONS PRIOR TO SURGERY EXCEPT THE FOLLOWING Hold all vitamins and supplements for 3 days per anesthesiologist. Medications to discontinue per physician Date to take last zocv__[id number]____ Please no make-up, nail bulgarian, hairspray, perfume, deodorant, or body powder the day of surgery.? No jewelry (including any body piercings) or valuables the day of surgery, leave them at home.? Please take a shower or bath the night before, or the morning of, surgery with an antibacterial soap.? Wear comfortable, loose fitting clothing.? - Jewelry must be removed prior to entering the operating room.? Rings and piercings that are not removed may be cut off. - The hospital will not accept responsibility for valuables.? - Please leave all valuables, including medications, at home the day of surgery. If you are going home after surgery, a licensed cement truck driver must drive you home.? - NO public transportation without another adult if you receive anesthesia. - We recommend that an adult stay with you for 24 hours following discharge. - We also recommend that you do not drive, make important decision, drink alcoholic beverages, or take any drugs that were not prescribed by your health care provider for at least 24 hours after your discharge time. Follow any additional instructions given to you from your surgeon. Telephone instructions given to __Mike__and asked if any additional questions and then verbalized understanding. Patient advised to call surgeon office or pre surgery nurse liaison [phone] if any additional questions.
--- OUTSIDE RECORDS SUMMARY | 2024-12-28 00:10 | XMS_ITS | Encounter Summary ---
Author Organization [facility] Address [address] [place] [address] Phone Care Team Providers Care Work Environment Safety Inspector Name Role Phone Unavailable Primary Care Provider Unavailabl e Reason for Visit * Reason Comments Medication Refill Encounter Details Date Type Department Care Team (Late st Contact Info) Description 11/10/2022 Refill [facility] Medical Group - [facility] [address] [place] [address] [place] [address] [place] [address] Medication Refill Social History Tobacco Use Types [...] Total Score: 0 04/24/19 21 1:40 PM CVICU RN documented as of this encounter
--- OUTSIDE RECORDS SUMMARY | 2024-12-28 00:10 | XMS_ITS | Encounter Summary ---
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 [address] documented as of this encounter Procedures Procedure Name Priority Date/Time Associated Diagnosis Comments HEMOGLOBIN, GLYCOSYLATED Routine 11/20/2022 LIPID PANEL Routine 11/20/2022 documented in this encounter Results * LIPID PANEL (11/20/2022) CHOLESTEROL 169 HDL 38 TRIGLYCERIDES 83 NON HDL CHOLESTEROL 131 CHOL/HDL RATIO 4 LDL (CALCULATED) 114 11/20/2022 us [facility] Abstract LABORATORY Final Res ult * HEMOGLOBIN, GLYCOSYLATED (11/20/2022) HGB A1C 6.9 % 11/20/2022 us [facility] Abstract LABORATORY Final Res ult documented in this encounter Visit Diagnoses Not on filedocumented in this encounter Care Teams Drone Pilot Relationship Specialty Start Date End Date Alden Glover MD [address] [address] [place] [address] PCP - General FAMILY PRACTICE 08/07/21 documented as of this encounter
--- OUTSIDE RECORDS SUMMARY | 2024-12-28 00:10 | XMS_ITS | Encounter Summary ---
Author Organization [facility] Address [address] [place] [address] Care Team Providers Care Die Repairer Trimmer Dies Name Role Phone Alden Glover MD Primary Care Provider Encounter Details Date Type Department Care Team (Late st Contact Info) Description 05/19/2022 MyChart Message Enc [facility] Medical Group Family Medicine - [place] [address] [place] [phone] Alden Glover MD [address] [place] [address] CHEST WO CON Social [...] AM CDT Legal Sex Male 11:11 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 No / Unsure 05/19/2022 9:37 AM PRICING CONSULTANT documented as of this encounter Plan of Treatment Upcoming Encounters Date Type Department Care Team (Late st Contact Info) Description 01/23/2025 8:00 AM PRICING CONSULTANT Allied Health/Nurse Visit [facility] Medical Group Family Medicine - [place] [address] [place] [address] Alden Glover MD [address] [address] [place] [address] documented as of this encounter Visit Diagnoses Not on filedocumented in this encounter Care Teams Die Repairer Trimmer Dies Relationship Specialty Start Date End Date Alden Glover MD [address] [facility] [address] [address] [address] [place] [address] PCP - General FAMILY PRACTICE 08/07/21 documented as of this encounter
--- OUTSIDE RECORDS SUMMARY | 2024-12-28 00:10 | XMS_ITS | Clinical Summary ---
Author Organization [facility] Address [address] [place] [address] Care Team Providers Care Clinical Unit Coordinator Name Role Phone Alden Glover MD Primary Care Provider [phone] Allergies No known active allergies Medications Cholecalciferol [...] arteries 023 Coronary artery disease invo lving rampart coronary artery of rampart heart without angina pectoris 07/03/2022 Calculus of [...] (08/15/2021): Added automatically from request for surgery [id number] Ulcerative colitis ([facility]) 08/06/2013 06/11/2022 Overview (06/11/2022): Ulcerative colitis Encounters Date Type Department Care Team Description 12/19/2024 Scan HEALTH INFO SRVCS Scanned, Doc [facility] Lab (SCAN) 10/25/2024 8:00 AM CDT Office Visit [facility] [place] [address], [address] [place] [address] Alden Glover MD Physical (Annual physical) 10/25/2024 Travel 09/29/2024 Results Follow-Up [facility] [place] [address], [address] [place] [address] Alden Glover MD ALBUMIN URINE RANDOM W/CREATININE, [...] AM CDT Legal Sex Male 11:11 AM SHORTS SIFTER Gender Identity Male 08/05/2021 6:16 AM CDT [...] st Contact Info) Description 01/23/2025 8:00 AM SHORTS SIFTER Allied Health/Nurse Visit [facility] - [place] [address], [address] [place] [address] Alden Glover MD [address] [place] [address] Health Maintenance Due Date Last Done Comments ASCVD Statin 1972 Hepatitis B Vaccines (1 of 3 - 19+ 3-dose series) 06/15/1991 Pneumococcal Vaccine: 50+ Years (1 of 2 - PCV) 06/15/1991 ASCVD LDL 11/21/2023 11/20/2022, 11/14/2021 Lipid Panel 11/21/2023 11/20/2022, 11/14/2021 COVID-19 Vaccine ( season) 2024 01/17/2023, 06/22/2021, 07/10/2020, Additional history exists Zoster Vaccines (2 of 2) 12/20/2024 10/25/2024 Influenza Adult (#1) 2024 01/17/2023, 04/24/2020, 04/29/2019, Additional history exists Diabetes: Retinopathy Eye Exam 03/18/2025 03/18/2023, 06/18/2020 Hemoglobin A1C 03/31/2025 09/28/2024, 05/2 11/2023, 11/20/2022, Additional history exists Kidney Health Evaluation 09/28/2025 09/28/2024 Annual Physical 10/25/2025 10/25/2024, 06/11/2022 Colorectal Cancer Screening Colonoscopy (10 Years) 09/27/2031 09/26/2021, 09/26/2021 DTaP, Tdap and Td Vaccines (3 - Td or Tdap) 10/25/2034 10/25/2024, 08/08/2008 Hepatitis C Completed 10/10/2024, 07/2 03/2024, 10/10/2024, Additional history exists PHQ-2 (Physician [place]) Completed 10/25/2024 Meningococcal B Vaccine Aged Out No l onger eligible based on patient's age to complete this topic Meningococcal Vaccine Aged Out No lesa humaira eligible based on patient's age to complete this topic RSV Immunizations Under 20 Months Aged Out No longer eligible based on patient's age to complete this topic Procedures Procedure Name Priority Date/Time Associated Diagnosis Comments OUTSIDE LAB (SCAN ORDER) 12/19/2024 HEMOGLOBIN, GLYCOSYLATED Routine 09/28/2024 7:21 AM CDT Type 2 diabetes mellitus with other circulatory complication, with long-term current use of insulin ([facility]) Healthcare maintenance CBC W/DIFF AUTOMATED Routine 09/28/2024 [...] complication, with long-term current use of insulin ([facility]) DIABETIC RETINOPATHY EXAM (NEGATIVE)(SCAN ORDER) Routine 03/18/2023 LIPID PANEL Routine 11/20/2022 HEPATITIS C ANTIBODY W/RFX TO HCV RNA Routine 11/14/2021 7:36 AM CDT Need for hepatitis C screening test COLONOSCOPY Routine 09/26/2021 11:40 AM CDT from Last 3 Months or Most Recently Relevant to Health Maintenance Results * OUTSIDE LAB (SCAN ORDER) (12/19/2024) 12/19/2024 [facility] Scanned SCANNING Final Resu lt * (ABNORMAL) HEMOGLOBIN, GLYCOSYLATED (09/28/2024 7:21 AM CDT) HGB A1C 7.0(H) <5.7 % of total Hgb [place] Comment: For someone without known diabetes, [...] AM CDT 09/28/2024 7:22 AM CDT Narrative [facility] [place] [facility] - 09/29/2024 7:13 AM CDT FASTING:YES FASTING: YES Resulting Agency Comment Performing Organization Information: Site ID: Name: [facility] Address: [address] [place] [id number] Director: Gill Miller Alden Glover MD LABORATORY Final Result [facility] [place] [facility] [address], * PROSTATE SPECIFIC ANTIGEN,SCREENING (09/28/2024 7:21 AM CDT) PSA TOTAL 0.94 < OR = 2.50 ng/mL [facility] Comment: The total PSA value from [...] AM CDT 09/28/2024 7:22 AM CDT Narrative [facility] [place] - 09/29/2024 7:13 AM CDT FASTING:YES FASTING: YES Resulting Agency Comment Performing Organization Information: Site ID: [id number] Name: [facility] Address: [address] [place] [phone] Director: Gill Miller MD Alden Glover MD LABORATORY Final Result [facility] [id number] [place] [address], * ALBUMIN URINE RANDOM W/CREATININE (09/28/2024 7:21 AM CDT) CREATININE RANDOM (U) 55 20 - 320 mg/dL [facility] MICROALBUMIN (U) <0.2 See Note: mg/dL [facility] Comment: Reference Range: Reference Range Not established MICROALB/CREAT NOTE <30 mg/g creat [facility] Comment: NOTE: The urine albumin value [...] AM CDT 09/28/2024 7:22 AM CDT Narrative [facility] [place] [facility] - 09/29/2024 7:13 AM CDT FASTING:YES FASTING: YES Resulting Agency Comment Performing Organization Information: Site ID: [id number] Name: [facility] Address: [address] [place] [phone] Director: Gill Miller MD Alden Glover MD URINE ORDERABLES Final Result [facility] [place] [facility] [address] [address] [address], [place] * (ABNORMAL) COMPREHENSIVE METABOLIC PANEL (09/28/2024 7:21 AM CDT) GLUCOSE 145(H) 65 - 99 mg/dL [facility] Comment: Fasting reference interval For someone without known diabetes, a glucose value >125 mg/dL indicates that they may have diabetes and this should be confirmed with a follow-up test. BUN 17 7 - 25 mg/dL [facility] CREATININE S/P/B 0.76 0.70 - 1.30 mg/dL [facility] GFR ESTIMATE 108 > OR = 60 mL/min/1. 73m2 [facility] BUN CREATININE RATIO SEE NOTE: (calc) [facility] Comment: Not Reported: BUN and Creatinine are within reference range. SODIUM S/P/B 143 135 - 146 mmol/L [facility] POTASSIUM S/P/B 4.0 3.5 - 5.3 mmol/L [facility] CHLORIDE S/P/B 105 98 - 110 mmol/L [facility] CO2 28 20 - 32 mmol/L [facility] CALCIUM S/P/B 9.8 8.6 - 10.3 mg/dL [facility] TOTAL PROTEIN S/P/B 6.9 6.1 - 8.1 g/dL [facility] ALBUMIN S/P/B 4.3 3.6 - 5.1 g/dL [facility] GLOBULIN 2.6 1.9 - 3.7 g/dL (calc) [facility] ALBUMIN/GLOBULI N RATIO 1.7 1.0 - 2.5 (calc) [facility] BILIRUBIN TOTAL S/P/B 0.4 0.2 - 1.2 mg/dL [facility] ALKALINE PHOSPHATASE S/P/B 57 35 - 144 U/L [facility] AST 23 10 - 35 U/L [facility] ALT 28 9 - 46 U/L [facility] 09/28/2024 7:21 AM CDT 09/28/2024 7:22 AM CDT Narrative [facility] - 09/29/2024 7:13 AM CDT FASTING:YES FASTING: YES Resulting Agency Comment Performing Organization Information: Site ID: [id number] Name: [facility] Address: [address] [address] [phone] Director: Gill Miller MD Alden Glover MD LABORATORY Final Result [facility] [place] [facility] [place] [place] [address] [address], [place] [address], * CBC W/DIFF AUTOMATED (09/28/2024 7:21 AM CDT) WBC 7.6 3.8 - 10.8 Thousand/u L [facility] [place] RBC 5.03 4.20 - 5.80 Million/uL [facility] [place] HGB 14.3 13.2 - 17.1 g/dL [facility] [place] HCT 44.2 38.5 - 50.0 % [facility] [place] MCV 87.9 80.0 - 100.0 fL [facility] [place] MCH 28.4 27.0 - 33.0 pg [facility] MCHC 32.4 32.0 - 36.0 g/dL [facility] Comment: For adults, a slight decrease in the calculated MCHC value (in the range of 30 to 32 g/dL) is most likely not clinically significant; however, it should be interpreted with caution in correlation with other red cell parameters and the patient's clinical condition. RDW 13.6 11.0 - 15.0 % [facility] PLT 217 140 - 400 Thousand/u L [facility] [place] MPV 10.1 7.5 - 12.5 fL [facility] [place] ABS. NEUTROPHILS 4,431 1,500 - 7,800 cells/uL [facility] [place] ABS. LYMPHOCYTES 2,158 850 - 3,900 cells/uL [facility] [place] ABS. MONOCYTES 752 200 - 950 cells/uL [facility] [place] ABS. EOSINOPHILS 198 15 - 500 cells/uL [facility] [place] ABS. BASOPHILS 61 0 - 200 cells/uL [facility] [place] SEG NEUTROPHILS 58.3 % [facility] [place] LYMPHOCYTES 28.4 % [facility] [place] [place] MONOCYTES 9.9 % [facility] EOSINOPHILS 2.6 % [facility] [place] BASOPHILS 0.8 % [facility] 09/28/2024 7:21 AM CDT 09/28/2024 7:22 AM CDT Narrative [facility] [place] [facility] - 09/29/2024 7:13 AM CDT FASTING:YES FASTING: YES Resulting Agency Comment Performing Organization Information: Site ID: [place] Name: [facility] Address: [address] [place] [address] Director: Gill Miller MD Alden Glover MD LABORATORY Final Result [facility] [place] [address] [place] [address], * DIABETIC RETINOPATHY EXAM (NEGATIVE) (03/18/2023) Culture Kitchen Scanned SCANNING Final Resu lt [facility] * LIPID PANEL (11/20/2022) CHOLESTEROL 169 HDL 38 TRIGLYCERIDES 83 NON HDL CHOLESTEROL 131 CHOL/HDL RATIO 4 LDL (CALCULATED) 114 11/20/2022 [facility] Abstract LABORATORY Final Res ult * HEPATITIS [...] a test for HCV RNA (test code 38107) is suggested. For additional information please refer to http://education.[employer]/faq/YMH94b7 (This link is being provided for informational/ educational purposes only.) 11/14/2021 7:36 AM CDT 11/14/2021 7:36 AM CDT Alden Glover MD LABORATORY Final Result [facility] [place] [address] [address], [place] [phone] from Last 3 Months or Most Recently Relevant to Health Maintenance Insurance [employer] Care Teams Clinical Unit Coordinator Relationship Specialty Start Date End Date Alden Glover MD [address] [place] [address] PCP - General FAMILY PRACTICE 08/07/21
--- OUTSIDE RECORDS SUMMARY | 2024-12-28 00:10 | XMS_ITS | Encounter Summary ---
Author Organization [facility] Address [address] [place] [address] Care Team Providers Care Business Intelligence Etl Developer Name Role Phone Alden Glover MD Primary Care Provider [phone] Encounter Details Date Type Department Care Team (Late st Contact Info) Description 05/09/2022 LEID Productst Message Enc [facility] - [place] [address] [place] [id number] Alden Glover MD [address] [place] [address] [place] Urine Social History Tobacco Use Types [...] AM CDT Legal Sex Male 11:11 AM GENERAL 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 No / Unsure 05/12/2022 7:59 AM GENERAL HANDLING SUPERVISOR documented as of this encounter Functional Status * Over the past 2 weeks, how often have you been bothered by any of the following problems? Question Answer Date of Assessment Author Status Little interest or pleasure in doing things Not at all 05/12/2022 8:36 AM Che Carlson MA Acti ve Feeling down, depressed, or hopeless Not at all 05/12/2022 8:36 AM GENERAL HANDLING SUPERVISOR Che Vincent MA Active Patient Health Questionnaire-2 Score 0 05/12/2022 8:36 AM GENERAL HANDLING SUPERVISOR Che Vincent M A Active documented as of this encounter Plan of Treatment Upcoming Encounters Date Type Department Care Team (Late st Contact Info) Description 01/23/2025 8:00 AM GENERAL HANDLING SUPERVISOR Allied Health/Nurse Visit [facility] - [place] [address] [facility] [address] [place] [address] Alden Glover MD [address] [address] [address] [place], [place] [address] documented as of this encounter Visit Diagnoses Not on filedocumented in this encounter Care Teams Business Intelligence Etl Developer Relationship Specialty Start Date End Date Alden Glover MD [address] [address] [address] [place], [place] [address] PCP - General FAMILY PRACTICE 08/07/21 documented as of this encounter
--- OUTSIDE RECORDS SUMMARY | 2024-12-28 00:10 | XMS_ITS | Clinical Summary ---
Author Organization [facility] Address [address] [facility] [place] [address] Care Team Providers Care Tape Edge Machine Operator Name Role Phone Alden Glover MD Primary Care Provider [phone] Source Comments [facility],non-owned Affiliates and Associated Physician Practices is amultiple site organization consisting of ambulatory clinics and hospital sitesin [place], [place], [place] and [place]. This disclosure is being madepursuant to the Care Everywhere program and may not contain all information available regarding this patient. Last updated 17.[facility] Allergies No known active allergies Medications * [...] - 10/10/2024 11:59 PM CDT Hospital Encounter [facility] OP DRAW STATION [address] [place] [address] Discharge Disposition: Home or Self Care 10/10/2024 3:00 PM CDT Office Visit [facility] - Rheumatology [address] [place] [phone] Evon Dixon MD HLA B27 (HLA B27 positive) (Primary Dx) 10/10/2024 Travel from Last 3 Months Social History Tobacco [...] - Oxygen Saturation 93% 03/10/2024 8:32 AM PLYCOR OPERATOR Inhaled Oxygen Concentration - - Weight 150.2 kg (331 lb 3.2 oz) 10/10/2024 2:53 PM CDT Height 170.2 cm (5' 7.01) 10/10/2024 2:53 PM CD T Body Mass Index 51.86 10/10/2024 2:53 PM CDT Plan of Treatment Upcoming Encounters Date Type Department Care Team (Late st Contact Info) Description 02/06/2025 3:30 PM PLYCOR OPERATOR Office Visit [facility] - Rheumatology [address] [place] [phone] Evon Dixon MD [address] [place] [address] [place] [phone] Health Maintenance Due Date Last Done Comments [...] SCREENING 03/23/2024 03/10/2024 COVID-19 VACCINE (4 - 2024- season) 2024 06/22/2021, 07/10/2020, 06/19/2020 INFLUENZA VACCINE [...] GOLD PLUS 4-TUBE (10/10/2024 3:41 PM CDT) [facility] QuantiFERON Mitogen Minus NIL 9.96 IU/mL 10/13/2024 4:01 AM CDT [facility]) QuantiFERON Nil Value 0.04 IU/mL 10/13/2024 4:01 AM CDT [facility]) QuantiFERON Plus TB1 Minus NIL 0.06 <=0.34 IU/mL 10/13/2024 4:01 AM CDT [facility]) QuantiFERON Plus TB2 Minus NIL 0.08 <=0.34 IU/mL 10/13/2024 4:01 AM CDT [facility] ([facility]) QuantiFERON-TB Gold Plus Negative Negative 10/13/2024 4:01 AM CDT [facility] ([facility]) Comment: INTERPRETIVE INFORMATION:Quantiferon TB Gold Plus Interferon [...] Mycobacterium tuberculosis Infection -- [place], 2010 (http://www.cdc.gov/mmwr/preview/mmwrhtml/ts7028z9.htm), for more information concerning test performance in low-prevalence populations and use in occupational screening. Performed By: [facility] [address] [place] [address] Client Reporting Associate: Pro Loo MD, PhD CLIA Number: [id number] Blood BLOOD SPECIMEN / Unknown Lab Venipuncture / Unknown 10/10/2024 3:41 PM CDT 10/10/2024 4:12 PM CDT James Saucedo MD LAB - CHEMISTRY ORDERABLES Final Result [facility] [email or web address] ([facility]) [address] [place] [address] * HEPATITIS B SURFACE ANTIBODY QUANT (10/10/2024 3:41 PM CDT) Pathologist [facility] Hepatitis B Virus Surface Antibody Non-react justin Non-react justin 10/10/2024 4:56 PM CDT [facility] Comment: < 8 mIU/mL Hepatitis B surface Antibody (HBsAb). Nonreactive for HBsAb - individual is considered not immune to Hepatitis B Virus infection. Hepatitis B Surface Antibody Quantitative <3.0 <8.0 mIU/mL 10/10/2024 4:56 PM CDT [facility] Comment: Hepatitis B Surface Antibody Numeric Result Interpretation: Nonreactive: <8.0 mIU/mL Indeterminate: 8.0 - 12.0 mIU/mL Reactive: >12.0 mIU/mL Blood BLOOD SPECIMEN / Unknown Lab Venipuncture / Unknown 10/10/2024 3:41 PM CDT 10/10/2024 4:05 PM CDT Narrative [facility] - 10/10/2024 4:56 PM CDT This assay should not be used for blood, plasma, or tissue donor screening. This assay is not recommended for neonates born to HBV-infected or suspected HBV-infected mothers. us James Saucedo MD LAB - SEROLOGY ORDERABLES Final Result Performing Organization Address [facility]/ZIP Co de Phone Number [address] [address], [facility] [phone] * C-REACTIVE PROTEIN (10/10/2024 3:41 PM CDT) C-Reactive Protein <0.5 <=0.5 mg/dL 10/10/2024 4:40 PM CDT [facility] Blood BLOOD SPECIMEN / Unknown Lab Venipuncture / Unknown 10/10/2024 3:41 PM CDT 10/10/2024 4:09 PM CDT us James Saucedo MD LAB - CHEMISTRY ORDERABLES Final Result Performing Organization Address [facility] Co de Phone Number [address] [address], [place] [phone] * ERYTHROCYTE SEDIMENTATION RATE (10/10/2024 3:41 PM CDT) Erythrocyte Sedimentation Rate Westergren 9 0 - 20 MM/HR 10/10/2024 4:41 PM CDT [facility] Blood BLOOD SPECIMEN / Unknown Lab Venipuncture / Unknown 10/10/2024 3:41 PM CDT 10/10/2024 4:10 PM CDT us James Saucedo MD LAB - HEMATOLOGY ORDERABLES Carolyn l Result [facility] [address] [place] [address], [facility] [phone] * CBC WITH DIFFERENTIAL (10/10/2024 3:41 PM CDT) [facility] WBC 9.4 4.0 - 10.7 x10E9/L 10/10/2024 4:20 PM CDT [facility] RBC Count 5.19 4.30 - 5.80 x10E12/L 10/10/2024 4:20 PM T [facility] Hemoglobin 14.7 13.3 - 17.5 g/dL 10/10/2024 4:20 PM T [facility] Hematocrit 43.1 38.7 - 51.1 % 10/10/2024 4:20 PM [facility] MCV 83.0 80.0 - 98.0 fL 10/10/2024 4:20 PM CDT [facility] MCH 28.3 26.7 - 33.6 pg 10/10/2024 4:20 PM T [facility] MCHC 34.1 31.7 - 36.3 g/dL 10/10/2024 4:20 PM T [facility] RDW-CV 13.6 11.3 - 14.8 % 10/10/2024 4:20 PM [facility] Platelet Count 228 150 - 420 x10E9/L 10/10/2024 4:20 PM T [facility] MPV 9.7 7.8 - 11.4 fL 10/10/2024 4:20 PM T [facility] Neutrophil % 60.7 41.0 - 74.0 % 10/10/2024 4:20 PM T [facility] Lymphocyte % 28.6 17.0 - 47.0 % 10/10/2024 4:20 PM CDT [facility] Monocyte % 8.1 3.0 - 11.0 % 10/10/2024 4:20 PM [facility] Eosinophil % 1.9 0.0 - 7.0 % 10/10/2024 4:20 PM CDT [facility] Basophil % 0.5 0.0 - 1.6 % 10/10/2024 4:20 PM [facility] Immature Granulocytes % 0.2 0.0 - 1.0 % 10/10/2024 4:20 PM [facility] Neutrophil Absolute 5.68 1.60 - 7.50 x10E9/L 10/10/2024 4:20 PM [facility] Lymphocyte Absolute 2.68 1.00 - 4.40 x10E9/L 10/10/2024 4:20 PM [facility] Monocyte Absolute 0.76 0.15 - 1.00 x10E9/L 10/10/2024 4:20 PM [facility] Eosinophil Absolute 0.18 0.00 - 0.60 x10E9/L 10/10/2024 4:20 PM [facility] Basophil Absolute 0.05 0.00 - 0.13 x10E9/L 10/10/2024 4:20 PM [facility] Blood BLOOD SPECIMEN / Unknown Lab Venipuncture / Unknown 10/10/2024 3:41 PM CDT 10/10/2024 4:10 PM CDT us James Saucedo MD LAB - HEMATOLOGY ORDERABLES Carolyn l Result [facility] [address] [place] [address], [facility] [phone] * (ABNORMAL) COMPREHENSIVE METABOLIC PANEL (10/10/2024 3:41 PM CDT) BUN 12 7 - 26 mg/dL 10/10/2024 4:40 PM [facility] Creatinine 0.62(L) 0.71 - 1.16 mg/dL 10/10/2024 4:40 PM [facility] Sodium 141 136 - 145 mmol/L 10/10/2024 4:40 PM [facility] Potassium 4.2 3.5 - 4.5 mmol/L 10/10/2024 4:40 PM [facility] Chloride 104 98 - 107 mmol/L 10/10/2024 4:40 PM [facility] CO2 29 22 - 29 mmol/L 10/10/2024 4:40 PM [facility] Glucose 119(H) 70 - 99 mg/dL 10/10/2024 4:40 PM [facility] Calcium 9.6 8.4 - 10.2 mg/dL 10/10/2024 4:40 PM [facility] Protein Total 7.5 6.0 - 8.3 g/dL 10/10/2024 4:40 PM [facility] Albumin 4.5 3.4 - 5.0 g/dL 10/10/2024 4:40 PM [facility] Bilirubin Total 0.5 0.2 - 1.2 mg/dL 10/10/2024 4:40 PM [facility] Alkaline Phosphatase 62 40 - 150 U/L 10/10/2024 4:40 PM [facility] ALT 33 5 - 55 U/L 10/10/2024 4:40 PM [facility] AST 23 5 - 34 U/L 10/10/2024 4:40 PM [facility] Anion Gap 8 6 - 16 10/10/2024 4:40 PM [facility] BUN/Creatinine Ratio 19 7 - 23 10/10/2024 4:40 PM [facility] Osmolality Calculated 293 275 - 295 mOsm/kg 10/10/2024 4:40 PM [facility] Albumin/Globulin Ratio 1.5 1.1 - 2.3 10/10/2024 4:40 PM [facility] eGFR by CKD-EPI >90 >=90 mL/min/1.7 3 m2 10/10/2024 4:40 PM [facility] Comment:Estimated Glomerular Filtration Rate (eGFR) calculated using the CKD-EPI Creatinine Equation (2020), per the National Kidney Foundation and [place] Society of Nephrology recommendations. Blood BLOOD SPECIMEN / Unknown Lab Venipuncture / Unknown 10/10/2024 3:41 PM CDT 10/10/2024 4:09 PM [facility] us James Saucedo MD LAB - CHEMISTRY ORDERABLES Final Result [facility] [address] [place] [address], [facility] [phone] * HEPATITIS B CORE ANTIBODY TOTAL (10/10/2024 3:41 PM CDT) Pathologist [facility] HBc Antibody Total Non-reacti ve Non-reacti ve 10/10/2024 4:50 PM CDT [facility] Blood BLOOD SPECIMEN / Unknown Lab Venipuncture / Unknown 10/10/2024 3:41 PM CDT 10/10/2024 4:05 PM CDT us James Saucedo MD LAB - CHEMISTRY ORDERABLES Final Result Performing Organization Address [facility]/ZIP Co de Phone Number [address] [address], [facility] [phone] * HEPATITIS B SURFACE ANTIGEN W RFLX CONFIRMATION (10/10/2024 3:41 PM CDT) Pathologist [facility] Hepatitis B Virus Surface Antigen Non-reacti ve Non-reacti ve 10/10/2024 4:50 PM CDT [facility] Blood BLOOD SPECIMEN / Unknown Lab Venipuncture / Unknown 10/10/2024 3:41 PM CDT 10/10/2024 4:05 PM CDT us James Saucedo MD LAB - CHEMISTRY ORDERABLES Final Result Performing Organization Address [facility]/ZIP Co de Phone Number [address] [address], [facility] [phone] * HEPATITIS C ANTIBODY (10/10/2024 3:41 PM CDT) Pathologist [facility] Hepatitis C Antibody Non-react justin Non-reac tive 10/10/2024 4:50 PM CDT [facility] Comment:Hepatitis C Antibody screen indicates no [...] MD LAB - CHEMISTRY ORDERABLES Final Result [facility] [address] [place] [address], [facility] [phone] from Last 3 Months Insurance AETNA AETNA Care Teams Tape Edge Machine Operator Relationship Specialty Start Date End Date Alden Glover MD [address] [facility] [address] [place] [address] PCP - General Family Medicine 08/13/23
--- OUTSIDE RECORDS SUMMARY | 2024-12-28 00:10 | XMS_ITS | Encounter Summary ---
Author Organization [facility] Address [address] [place] [address] Phone Care Team Providers Care Motorman/Woman Name Role Phone Trang Ford MD Primary Care Provider Reason for Visit * Reason Comments Medication Refill Encounter Details Date Type Department Care Team (Late st Contact Info) Description 08/12/2021 Refill [facility] - [facility] [address] [place] [address] [place] [address] [place] [address] Medication Refill Social History Tobacco Use Types [...] Total Score: 0 04/24/19 21 1:40 PM MASTER FIRE CONTROL TECHNICIAN documented as of this encounter Care Teams Motorman/Woman Relationship Specialty Start Date End Date Trang Ford MD PCP - General Family Medicine 03/10/17 08/12/21 documented as of this encounter
--- OUTSIDE RECORDS SUMMARY | 2024-12-28 00:10 | XMS_ITS | Clinical Summary ---
Author Organization [facility] Address [address] [place] [address] Phone Care Team Providers Care Rubber Curer Name Role Phone Unavailable Primary Care Provider [...] 2 diabetes mellitus without complication, unspecified whether ferry terminal supervisor insulin use (HCC) HEMOGLOBIN A1C W/ ESTIMATED GLUCOSE Routine 04/26/2020 Type 2 diabetes mellitus without complication, unspecified whether ferry terminal supervisor insulin use (HCC) from Last 3 Months [...]
--- OUTSIDE RECORDS SUMMARY | 2024-12-28 00:10 | XMS_ITS | Encounter Summary ---
Author Organization [facility] Address [address] [place] [address] Care Team Providers Care Awning Hanger Name Role Phone Alden Glover MD Primary Care Provider [phone] Encounter Details Date Type Department Care Team (Latest Contact Info) Description 11/10/2023 Winkt Message Enc [facility] Multispecialty Care - 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 Gender Identity Male 08/05/2021 6:16 AM CDT Sexual Orientation Straight 08/05/2021 6: 16 AM CDT documented as of this encounter Plan of Treatment Upcoming Encounters Date Type Department Care Team (Late st Contact Info) Description 01/23/2025 8:00 AM MEDICAL DRIVER Allied Health/Nurse Visit [facility] Family Medicine - [address] [facility], [address] [place] [address] Alden Glover MD [address] [phone] documented as of this encounter Visit Diagnoses Not on filedocumented in this encounter Care Teams Awning Hanger Relationship Specialty Start Date End Date Alden Glover MD [address] [place] [address] [address] [place], [place] [phone] PCP - General FAMILY PRACTICE 08/07/21 documented as of this encounter
--- OUTSIDE RECORDS SUMMARY | 2024-12-28 00:10 | XMS_ITS | Encounter Summary ---
Author Organization [facility] Address [address] [place] [address] Care Team Providers Care Communications Senior Associate Name Role Phone Alden Glover MD Primary Care Provider [phone] Encounter Details Date Type Department Care Team (Late st Contact Info) Description 03/29/2024 MyChart Message Enc [facility] Family Medicine - [place] [address] [facility], [address] [place] [phone] Alden Glover MD [address] [facility] [address] [place], [place] [phone] New patients Social History Tobacco Use Types Packs/Day Years Used Date Smoking Tobacco: Never Smokeless Tobacco: Never Alcohol Use Standard Drinks/Week Comments Never 0 (1 standard drink = 0.6 oz pur e alcohol) PHQ-2 Answer Date Recorded Patient Health Questionnaire-2 Score 0 08/19/2023 Sex and Gender Information Value Date Recorded Sex Assigned at Male 10/25/2024 8:02 AM CDT Legal Sex Male 11:11 AM LABORATORY WORKER Gender Identity Male 08/05/2021 6:16 AM CDT Sexual Orientation Straight 08/05/2021 6: 16 AM CDT documented as of this encounter Plan of Treatment Upcoming Encounters Date Type Department Care Team (Late st Contact Info) Description 01/23/2025 8:00 AM LABORATORY WORKER Allied Health/Nurse Visit [facility] Family Medicine - [place] [address] [facility], [address] [place] [phone] Alden Glover MD [address] [facility] [address] [place] [address] documented as of this encounter Visit Diagnoses Not on filedocumented in this encounter Care Teams Communications Senior Associate Relationship Specialty Start Date End Date Alden Glover MD [address] [facility] [address] [place], [place] [address] PCP - General FAMILY PRACTICE 08/07/21 documented as of this encounter
--- OUTSIDE RECORDS SUMMARY | 2024-12-28 00:10 | XMS_ITS | Encounter Summary ---
Author Organization [facility] Address [address] [place] [address] Phone Care Team Providers Care [facility]astic [facility] Products Assembler Name Role Phone Trang Ford MD Primary Care Provider Reason for Visit * Reason Comments Medication Refill Encounter Details Date Type Department Care Team (Late st Contact Info) Description 07/01/2021 Refill [facility] - [facility] [place] [address] [place] [address] [place] [address] [place] [address] Medication Refill Social History Tobacco Use Types [...] Total Score: 0 04/24/19 21 1:40 PM LOADING SUPERVISOR documented as of this encounter Care Teams [facility] Products Assembler Relationship Specialty Start Date End Date Trang Ford MD PCP - General Family Medicine 03/10/17 08/12/21 documented as of this encounter
--- OUTSIDE RECORDS SUMMARY | 2024-12-28 00:10 | XMS_ITS | Encounter Summary ---
Author Organization [facility] Address [address] [place] [address] Care Team Providers Care Cafe Associate Name Role Phone Alden Glover MD Primary Care Provider [phone] Encounter Details Date Type Department Care Team (Late st Contact Info) Description 08/19/2023 MyChart Message Enc [facility] Medical [facility] Family Medicine - [place] [address] [facility], [address] [place] [phone] Alden Glover MD [address] [facility] [address] [place] [address] Lab Results Social History Tobacco Use Types Packs/Day Years Used Date Smoking Tobacco: Never Smokeless Tobacco: Never Alcohol Use Standard Drinks/Week Comments Never 0 (1 standard drink = 0.6 oz pur e alcohol) PHQ-2 Answer Date Recorded Patient Health Questionnaire-2 Score 0 08/19/2023 Sex and Gender Information Value Date Recorded Sex Assigned at Male 10/25/2024 8:02 AM CDT Legal Sex Male 11:11 AM BINDER ROLLER Gender Identity Male 08/05/2021 6:16 AM CDT [...] st Contact Info) Description 01/23/2025 8:00 AM BINDER ROLLER Allied Health/Nurse Visit [facility] Medical Group Family Medicine - [place] [address] [facility], [address] [place] [address] Alden Glover MD [address] [address] [place] [address] documented as of this encounter Visit Diagnoses Not on filedocumented in this encounter Care Teams Cafe Associate Relationship Specialty Start Date End Date Alden Glover MD [address] [address] [place] [address] PCP - General FAMILY PRACTICE 08/07/21 documented as of this encounter
--- OUTSIDE RECORDS SUMMARY | 2024-12-28 00:10 | XMS_ITS | Clinical Summary ---
Author Organization [facility] [address] Address [address] [place] [address] Phone Care Team Providers Care Mayonnaise Mixer Name Role Phone Trang Ford MD Primary Care Provider Allergies No known active allergies Medications cholecalciferol [...] 04/27/2019 Assessment & Plan (04/27/2019 10:47 AM COMPETITIVE INTELLIGENCE MANAGER): Daily PT/OT. Keep as active as possible during the day. Uncontrolled type 2 diabetes mellitus with hyper glycemia 04/24/2019 Assessment & Plan (04/28/2019 12:21 PM COMPETITIVE INTELLIGENCE MANAGER): a1c 7.8% on home metformin. Sugars well controlled here so will restart home metformin and stop insulin, stop accuchecks. Acute respiratory failure with hypercapnia 04/20 Assessment & Plan (04/29/2019 10:34 AM COMPETITIVE INTELLIGENCE MANAGER): Acute issue resolved. Assessment & Plan (04/27/2019 10:45 AM COMPETITIVE INTELLIGENCE MANAGER): - Continue BiPAP at 20/8 cm H2O at night, with sleep, and as needed during the day; until more definitive setting available. Most recent AM-ABG from 04/25 showed acceptable levels of PaCO2 - Minimize narcotics and avoid benzos Assessment & Plan (04/26/2019 9:30 AM COMPETITIVE INTELLIGENCE MANAGER): - Continue BiPAP at 20/8 cm H2O at night, with sleep, and as needed during the day. - Consult sleep medicine to assess for underlying STACIE and obesity hypoventilation and prison need for PAP with sleep. - Minimize narcotics and avoid all benzos Assessment & Plan (04/25/2019 5:09 PM COMPETITIVE INTELLIGENCE MANAGER): Stable ABGs on current setting 20/8 with pH 7.35 and pCO2 60-68. - Continue BiPAP at 20/8 cm H2O at night, with sleep, and as needed during the day. - Consult sleep medicine to assess for underlying STACIE and obesity hypoventilation and prison need for PAP with sleep. - Minimize narcotics and avoid all benzos Assessment & Plan (04/24/2019 11:40 AM COMPETITIVE INTELLIGENCE MANAGER): Progressively somnolent and hypercapnic throughout 04/21/2019 despite [...] for underlying STACIE and obesity hypoventilation and joint terminal attack controller need for PAP with sleep. - Minimize narcotics and avoid all benzos Assessment & Plan (04/24/2019 11:19 AM COMPETITIVE INTELLIGENCE MANAGER): STACIE/OHS. Extubated to BIPAP after surgery 20/8/30%. Refused it on floor and had hypercapnic resp failure, here in the [facility]CR[facility] for possible BIPAP titration. - will need sleep study, bipap at night time, oxygen prn Assessment & Plan (04/23/2019 1:24 PM COMPETITIVE INTELLIGENCE MANAGER): Progressively somnolent and hypercapnic throughout 04/21/2019 despite [...] for underlying STACIE and obesity hypoventilation and joint terminal attack controller need for PAP with sleep. - Minimize narcotics and avoid all benzos Assessment & Plan (04/22/2019 12:31 PM COMPETITIVE INTELLIGENCE MANAGER): Progressively somnolent and hypercapnic throughout yesterday despite [...] benzos Assessment & Plan (04/21/2019 10:01 AM COMPETITIVE INTELLIGENCE MANAGER): Normal sleep study 10 years ago, but [...] study. Assessment & Plan (04/20/2019 7:44 PM COMPETITIVE INTELLIGENCE MANAGER): Normal sleep study 10 years ago, but [...] (04/18/2019): Added automatically from request for surgery [id number] Assessment & Plan (04/27/2019 10:46 AM COMPETITIVE INTELLIGENCE MANAGER): - Abx per Urology. Assessment & Plan (04/25/2019 5:08 PM COMPETITIVE INTELLIGENCE MANAGER): - continue current abx per primary team - OR today for wound closure with urology Assessment & Plan (04/28/2019 12:20 PM COMPETITIVE INTELLIGENCE MANAGER): Urology and ACCS following. Hooker catheter to [...] therapy Assessment & Plan (04/22/2019 12:23 PM COMPETITIVE INTELLIGENCE MANAGER): - continue abx per primary team - OR today Assessment & Plan (04/20/2019 7:32 PM COMPETITIVE INTELLIGENCE MANAGER): - continue abx per primary team Obesity, Class III, BMI 40-49.9 (morbid obesity) 08/06/2013 Overview (06/25/2016): Obesity, morbid (more than 100 lbs over ideal weig Assessment & Plan (04/24/2019 11:23 AM COMPETITIVE INTELLIGENCE MANAGER): BMI 40.6. Will need line erector consultation. Gastroesophageal reflux disease 08/06/2013 Overview (06/26/2016): GERD (gastroesophageal reflux disease) Assessment & Plan (11/21/2022 2:33 PM CDT): Continue protonix Benign essential hypertension 08/06/2013 Overview (06/26/2016): Benign essential hypertension Assessment & Plan (11/21/2022 2:35 PM CDT): Takes lisinopril HCTZ 10-12.5 at home - continue lisinopril, can hold HCTZ for now unless hypertensive Assessment & Plan (04/28/2019 12:20 PM COMPETITIVE INTELLIGENCE MANAGER): Hold lisinopril/hctz 10/12.5. BP controlled here. Will [...] nightly Assessment & Plan (04/29/2019 10:37 AM COMPETITIVE INTELLIGENCE MANAGER): -- chronic settings now available and pt firmly believes in treatment -- BiPAP 22/10 cm H2O with a Bi-Flex setting of 3, 2 lpm oxygen and HOB of 40 degrees. -- home device to be delivered today -- will f/u in [facility]. Assessment & Plan (04/28/2019 12:21 PM COMPETITIVE INTELLIGENCE MANAGER): Had sleep study done, needs pressure titration study. Severe sleep apnea with severe hypoxia. - sleep consult - continue current settings for now - home bipap ordered, not necessary that he stay here for it but ordered through DME Assessment & Plan (04/27/2019 10:47 AM COMPETITIVE INTELLIGENCE MANAGER): Appears to have very severe STACIE/OHS. --Request [...] on file Legal Sex Male 12:48 PM COMPETITIVE INTELLIGENCE MANAGER Gender Identity Male 07/20/2019 12:49 PM CDT [...] 90 - 130 mL/min/1. 73 m2 [facility] Comment: Interpretive Data Reference Interval Normal >/= [...] PM CDT 11/20/2022 9:35 PM CDT Result [facility] Ridge Lynn MD LAB BLOOD ORDERABLES Final Res ult Performing Organization Address [facility] de Phone Number [facility] [place] [address] * (ABNORMAL) Hemoglobin A1c (11/20/2022 9:19 PM CDT) Hgb A1C 6.9(H) 4.0 - 5.6 % [facility] Estimated Average Glucose 151 mg/dL [facility] Comment: The ADA recommends reporting an estimated Average Glucose (eAG) with all Hemoglobin A1c results using the equation derived from a study of 507 normal and diabetic adults. Minority populations were underrepresented and children were not included. (Diabetes Care 2020; 43(S1): S66-S76). The eAG is not equivalent to a fasting glucose. Blood 11/20/2022 9:19 PM CDT 11/20/2022 9:41 PM CDT Result [facility] Araceli Lombardi MD LAB BLOOD ORDERABLES Final Result Performing Organization Address [facility] de Phone Number [facility] [place] [address] * (ABNORMAL) Lipid panel (11/20/2022 9:19 PM CDT) Cholesterol 169 30 - 199 mg/dL [facility] Comment: Interpretive Data Ages < or = [...] on 2017. Triglycerides 83 <=149 mg/dL [facility] Comment: Interpretive Data Ages < or [...] on 2017. HDL 38(L) >=40 mg/dL [facility] Comment: Interpretive Data Ages < or [...] 2017. LDL, calculated 114 <=129 mg/dL [facility] Comment: Interpretive Data Ages < or [...] last revised on 2017. Chol/HDL ratio 4 [facility] Blood 11/20/2022 9:19 PM CDT 11/20/2022 9:35 PM CDT Araceli Lombardi MD LAB BLOOD ORDERABLES Final Result [facility] Department [place] [address] from Last 3 Months or Most Recently Relevant to [place] [address] [facility] [employer] [facility] HMO [facility] HMO Advance Directives For more information, please contact: [phone] * Full Code (Latest Code Status on File) Date Activated Date Inactivated Comments 11/21/2022 4:22 PM 11/22/2022 7:21 PM * Full Code Date Activated Date Inactivated Comments 04/18/2019 8:29 PM 04/29/2019 9:15 PM Care Teams Mayonnaise Mixer Relationship Specialty Start Date End Date Trang Ford MD PCP - General 04/10/17
--- OUTSIDE RECORDS SUMMARY | 2024-12-28 00:10 | XMS_ITS | Encounter Summary ---
Author Organization [facility] Address [address] [place] [address] Phone Care Team Providers Care Timber Trimmer Name Role Phone Trang Ford MD Primary Care Provider Reason for Visit * Reason Comments Medication Refill Encounter Details Date Type Department Care Team (Late st Contact Info) Description 06/17/2021 Refill [facility] - [facility] [address] [place] [address] [place] [address] [place] [address] Medication Refill Social History Tobacco Use Types [...] Total Score: 0 04/24/19 21 1:40 PM ELECTRICAL ASSEMBLY SUPERVISOR documented as of this encounter Care Teams Timber Trimmer Relationship Specialty Start Date End Date Trang Ford MD PCP - General Family Medicine 03/10/17 08/12/21 documented as of this encounter
--- OUTSIDE RECORDS SUMMARY | 2024-12-28 00:10 | XMS_ITS | Encounter Summary ---
Author Organization [facility] Address [address] [place] [address] Phone Care Team Providers Care Baler Operator Name Role Phone Trang Ford MD Primary Care Provider Reason for Visit * Reason Comments Medication Refill Encounter Details Date Type Department Care Team (Late st Contact Info) Description 04/22/2020 Refill [facility] - [facility] [place] [address] [place] [address] [facility] [address] [place] [address] Medication Refill Social History Tobacco Use Types [...] COVID-19? No / Unsure 04/24/2020 1:32 PM REFUSE AND RECYCLING WORKER documented as of this encounter Miscellaneous Notes * Telephone Encounter - Emily Ortiz RN - 04/24/2020 3:06 PM CST The original prescription was reordered on 04/24/2020 by Trang Ford MD. duplicate SE AND RECYCLING WORKER * Telephone Encounter - Emily Ortiz RN - 04/23/2020 10:23 AM CST OV 04/24/20 SE AND RECYCLING WORKER documented in this encounter Plan of Treatment Not on file documented as of this encounter Visit Diagnoses Not on filedocumented in this encounter Additional Health Concerns Infection Onset Date Last Indicated Resolved Time COVID - 19 Confirmed 03/28/2021 03/28/2021 022 12:16 AM REFUSE AND RECYCLING WORKER Assessment Noted Time PHQ-9 Depression Total Score: 0 05/05/19 20 1:12 PM REFUSE AND RECYCLING WORKER documented as of this encounter Care Teams Baler Operator Relationship Specialty Start Date End Date Trang Ford MD PCP - General Family Medicine 03/10/17 08/12/21 documented as of this encounter
--- OUTSIDE RECORDS SUMMARY | 2024-12-28 00:10 | XMS_ITS | Encounter Summary ---
Author Organization [facility] Address [address] [place] [address] Care Team Providers Care Furnace Reliner Name Role Phone Alden Glover MD Primary Care Provider [phone] Encounter Details Date Type Department Care Team (Late st Contact Info) Description 06/04/2022 MyChart Message Enc [facility] Medical Group Family Medicine - [place] [address], [address] [place] [phone] Alden Glover MD [address] [place] [address] PET Scan Social History Tobacco Use Types [...] AM CDT Legal Sex Male 11:11 AM CODING COORDINATOR Gender Identity Male 08/05/2021 6:16 AM CDT [...] st Contact Info) Description 01/23/2025 8:00 AM CODING COORDINATOR Allied Health/Nurse Visit [facility] Family Medicine - [place] [address] [place] [address] Alden Glover MD [address] [facility] [address] [place] [address] documented as of this encounter Visit Diagnoses Not on filedocumented in this encounter Care Teams Furnace Reliner Relationship Specialty Start Date End Date Alden Glover MD [address] [facility] [address] [place] [address] PCP - General FAMILY PRACTICE 08/07/21 documented as of this encounter
--- OUTSIDE RECORDS SUMMARY | 2024-12-28 00:10 | XMS_ITS | Clinical Summary ---
Author Organization [facility] Address [address] [place] [address] Care Team Providers Care Sales Agent Pest Control Service Name Role Phone Denise Burgess MD Primary Care Provider [phone] Social History Tobacco Use Types Packs/Day Years Used Date Smoking Tobacco: Never Assessed Sex and Gender Information Value Date Recorded Sex Assigned at Not on file Legal Sex Male 3:01 AM EMERGENCY MANAGEMENT SYSTEM DIRECTOR Gender Identity Not on file Sexual Orientation [...] 2022 INFLUENZA VACCINE (#1) 2024 Care Teams Sales Agent Pest Control Service Relationship Specialty Start Date End Date Denise Burgess MD [address] [place] [address] PCP - General Internal Medicine 09/07/13
--- OUTSIDE RECORDS SUMMARY | 2024-12-28 00:10 | XMS_ITS | Encounter Summary ---
Author Organization [facility] Address [address] [place] [address] Care Team Providers Care Light Rail Operator Name Role Phone Alden Glover MD Primary Care Provider [phone] Reason for Visit * Reason Comments Lab (SCAN) Encounter Details Date Type Department Care Team (Latest Contact Info) Description 12/19/2024 Scan [facility] Scanned, Doc Med Group Lab (SCAN) Social History Tobacco Use Types Packs/Day Years Used Date Smoking Tobacco: Never Smokeless Tobacco: Never Alcohol Use Standard Drinks/Week Comments Never 0 (1 standard drink = 0.6 oz pur e alcohol) PHQ-2 Answer Date Recorded Patient Health Questionnaire-2 Score 0 10/25/2024 Sex and Gender Information Value Date Recorded Sex Assigned at Male 10/25/2024 8:02 AM CDT Legal Sex Male 11:11 AM BOBBIN HAULER Gender Identity Male 08/05/2021 6:16 AM CDT Sexual Orientation Straight 08/05/2021 6: 16 AM CDT documented as of this encounter Plan of Treatment Upcoming Encounters Date Type Department Care Team (Late st Contact Info) Description 01/23/2025 8:00 AM BOBBIN HAULER Allied Health/Nurse Visit [facility] Medical [facility] Family Medicine - [place] [address], [address] [place] [address] Alden Glover MD [address] [facility] [address] [place] [address] documented as of this encounter Procedures Procedure Name Priority Date/Time Associated Diagnosis Comments OUTSIDE LAB (SCAN ORDER) 12/19/2024 documented in this encounter Results * OUTSIDE LAB (SCAN ORDER) (12/19/2024) 12/19/2024 us Doc Med Group Scanned SCANNING Final Resu lt documented in this encounter Visit Diagnoses Not on filedocumented in this encounter Care Teams Light Rail Operator Relationship Specialty Start Date End Date Alden Glover MD [address] [address] PCP - General FAMILY PRACTICE 08/07/21 documented as of this encounter
--- OUTSIDE RECORDS SUMMARY | 2024-12-28 00:10 | XMS_ITS | Encounter Summary ---
Author Organization [facility] Address [address] [place] [address] Care Team Providers Care Rotating Equipment Engineer Name Role Phone Alden Glover MD Primary Care Provider [phone] Encounter Details Date Type Department Care Team (Late st Contact Info) Description 09/02/2024 MyChart Message Enc [facility] Family Medicine - [place] [address] [facility], [address] [place] [phone] Alden Glover MD [address] [facility] [address] [place], [place] [id number] New patient Social History Tobacco Use Types Packs/Day Years Used Date Smoking Tobacco: Never Smokeless Tobacco: Never Alcohol Use Standard Drinks/Week Comments Never 0 (1 standard drink = 0.6 oz pur e alcohol) PHQ-2 Answer Date Recorded Patient Health Questionnaire-2 Score 0 08/19/2023 Sex and Gender Information Value Date Recorded Sex Assigned at Male 10/25/2024 8:02 AM CDT Legal Sex Male 11:11 AM JOURNEYMAN MEAT CUTTER Gender Identity Male 08/05/2021 6:16 AM CDT Sexual Orientation Straight 08/05/2021 6: 16 AM CDT documented as of this encounter Plan of Treatment Upcoming Encounters Date Type Department Care Team (Late st Contact Info) Description 01/23/2025 8:00 AM JOURNEYMAN MEAT CUTTER Allied Health/Nurse Visit [facility] Family Medicine - [place] [address] [facility], [address] [place] [phone] Alden Glover MD [address] [facility] [address] [place] [address] documented as of this encounter Visit Diagnoses Not on filedocumented in this encounter Care Teams Rotating Equipment Engineer Relationship Specialty Start Date End Date Alden Glover MD [address] [facility] [address] [place], [place] [address] PCP - General FAMILY PRACTICE 08/07/21 documented as of this encounter
--- OUTSIDE RECORDS SUMMARY | 2024-12-28 00:10 | XMS_ITS | Encounter Summary ---
Author Organization [facility] Address [address] [place] [address] Phone Care Team Providers Care Development Analyst Name Role Phone Unavailable Primary Care Provider Unavailabl e Reason for Visit * Reason Comments Medication Refill Encounter Details Date Type Department Care Team (Late st Contact Info) Description 11/07/2021 Refill [facility] Medical Group - [facility] [address] [place] [address] [place] [address] [place] [address] Medication Refill Social History Tobacco Use Types [...] Total Score: 0 04/24/19 21 1:40 PM RELAY DISPATCHER documented as of this encounter
--- NOTE | 2024-12-28 06:55 | WPDHPUPDATE1 ---
History and Physical Update Update Date/Time: 12/28/24 06:55 Patient seen and examined in pre-operative holding area. No interval change in medical history or symptoms. Patient recalls previous discussion of benefits and alternatives to procedure. Continues to desire to proceed with right endoscopic possible open carpal tunnel release . Reviewed procedure, post-op expectations and risks including but not limited to bleeding, infection, injury to tendon/nerve/vessel, decreased hand function, stiffness, RSD, no change or worsening of symptoms. I discussed the possible use of assistants and their participation in the case. Patient stated understanding and signed the consent form wishing to proceed.
--- NOTE | 2024-12-28 06:56 | W.PM.PROC2 ---
Procedure Note - Detailed Date of Procedure 12/28/24 Pre-op Diagnosis right carpal tunnel syndrome Post-op Diagnosis Same Procedure Performed right ectr Surgeon Estrella Hull MD Furniture Finisher Apprentice osmin metcalf pa-c Anesthesia MAC Description of Procedure INFORMED CONSENT: The patient was seen and examined and marked in the pre-op area.? The patient signed the consent form. PROCEDURE IN DETAIL:The patient taken back to OR on the stretcher in supine position. Time out performed with anesthesia, surgeon and staff agreeing on patient's name site and surgery to be performed SCDs were placed on the lower extremities and inflated. A tourniquet was placed on {right upper extremity and antibiotics given IV After anesthesia administered sedation I injected {5}cc 1%lido with epi and 0.5% marcaine plain at the operative site The?{right upper extremity}?was prepped and draped in sterile fashion the??{right upper extremity} was? exsanguinated with Esmarch bandage and tourniquet inflated to 250mmHg I made a transverse incision in the {right} volar distal wrist crease through skin and dermis with 15 blade scalpel.? Littler scissors spread down to antebrachial fascia. A small incision was made in antebrachial fascia allowing access to Carpal tunnel. I proceeded with sequential dilation staying in line with the ring finger and hugging the hook of the hamate.? I then used the synovial elevator to free any adhesions from the underside of the transverse carpal ligament. Next I was able to insert the Microaire endoscopic carpal tunnel device with direct visualization of the transverse fibers on the monitor though noting a lot of synovitis in tunnel and proceeded with complete segmental retrograde release of the ligament in its entirety.? I irrigated with normal saline and closed with 4-0 monocryl for dermis and subcuticular closure. A dressing of Dermabond, 4x4, leah, and a volar splint was applied for patient safety, security, and comfort and secured with an jorge l bandage after the tourniquet was let down noting the hand was warm and well perfused. The patient was then awaken from anesthesia and transferred to the recovery room in stable condition.? Complications - none EBL- 0cc Disposition - home in stable condition Osmin Metcalf PA-C was essential for positioning, retraction, closure and dressing placement [facility] Billing Surgery - Charge Forward: Surgery Billing ([id number] same for osmin adding )
[2024-12-28] MEDS: LACTATED RINGERS 1,000 ML 30 ML IV CONT (07:00)
[2024-12-28 07:11] VITALS: BP 132/75; PULSE 68; TEMP 37; O2SAT 98; BMI 47.7
[2024-12-28] MEDS: ACETAMINOPHEN 500 MG TABLET 1000 MG PO (07:15)
--- NOTE | 2024-12-28 07:51 | P.PNAN_ITS ---
Anes - Initial Pre Proc Eval Procedure: Operation Date: 12/28/24 08:15 Proposed Procedures p Right Endoscopic Carpal Tunnel Release, Possible Open - Estrella Hull MD Date/Time: 12/28/24 07:51 Surgeon: Estrella Hull MD Pre Op Diagnosis: right carpal tunnel syndrome Patient Data Age: 54 Gender: M Height: 1.7 m Weight: 138.2 kg Last Vital Signs Temp 37.0 C 12/28/24 07:11 Pulse 68 12/28/24 07:11 BP 132/75 12/28/24 07:11 Pulse Ox 98 12/28/24 07:11 O2 Del Method Room Air 12/28/24 07:11 Allergies Allergy/AdvReac Type Severity Reaction Status Date / Time No Known Allergies Allergy Verified 12/28/24 07:10 Home Medications ?Medication ?Instructions ?Recorded ?Confirmed ?Type lisinopril 10 1 tablet PO DAILY 04/15/19 0 12/19/24 History mg-hydrochlorothiazide 12.5 mg tablet pantoprazole 40 mg tablet,delayed 40 mg PO QAM 0 12/19/24 History release (Protonix) Saccharomyces boulardii 1 tablet PO DAILY 12/19/24 0 12/19/24 History cholecalciferol (vitamin D3) 1 cap PO DAILY 12/19/24 0 12/19/24 History utsspbxlmca-mpx-fltoznrxi-hrb 2 tablet PO DAILY 12/19/24 History 149-hyalur 500 mg-500 mg-66.7 mg tablet (Sbpsvnmwdss-Ajtoroumauf-NET (with antiox)) multivitamin 1 tablet PO DAILY 12/19/24 0 12/19/24 History tramadol 50 mg tablet 50 mg PO Q6H PRN pain #12 ta bs 12/28/24 Rx Patient hx anesthesia problems: none Family hx anesthesia problems: none Results Review: All pre-operative results and documents have been reviewed as part of the pre- operative evaluation. [facility] Past Medical History Medical History Multiple lung nodules Sleep apnea Bipap GERD (gastroesophageal reflux disease) Diabetes mellitus HTN (hypertension) Surgical History Surgical History H/O vasectomy Family History Family History Mother Diabetes mellitus Kidney disease Father Malignant neoplasm of prostate Hypertension COPD (chronic obstructive pulmonary disease) Social History Social History Social History: Caffeine-coffee Smoking status: Never smoker Alcohol intake: never Substance use: never Substance use type: does not use Living arrangements: with family Occupation/Education: occupation Gender identity (if verbalized by the patient): Male Spiritual care concerns: No Anes - Eval Final PreProcedure Day of Procedure 12/28/24 07:51 Patient weight: morbidly obese Heart: regular rate and rhythm Lungs: decreased breath sounds Airway: Mallampati scale class II Neurological: alert and oriented Last oral intake: >/= 8 hours ASA classification: III Emergent: no Anesthetic plan: proceed Anesthesia type and monitoring: general GIVS and standard monitoring Results Review: All pre-operative results and documents have been reviewed as part of the pre- operative evaluation. Informed Consent: The patient's anesthetic plan and its attendant risks and benefits were discussed with the patient/family/POA. Questions were solicited and answers provided to the satisfaction of the patient/family/POA.
[2024-12-28] MEDS: ceFAZolin 3 GM/D5W 100 ML 100 ML IVPB (08:38)
[2024-12-28] MEDS: BUPivacaine HCL 0.5% 10 ML AMP INFILTRATE (08:43)
[2024-12-28] MEDS: LIDO 1%/EPINEPHRINE 1:100,000 50 ML VIAL 10 ML INFILTRATE (08:44)
[2024-12-28 09:01] VITALS: BP 122/64; PULSE 86; RESP 20
[2024-12-28 09:30] VITALS: BP 112/62; PULSE 59; RESP 20
[2024-12-28 09:55] VITALS: BP 113/58; PULSE 50; RESP 20
== END 2024-12-28 10:02 | disposition home or self-care (01) ==
PROVIDERS: PCP Family Medicine; Visit Provider Plastic Surgery
PROC: 01N54ZZ Release Median Nerve, Percutaneous Endoscopic Approach (ICD-10-PCS; CPT 29848; principal; 2024-12-28 08:15)
DX: G56.01 Carpal tunnel syndrome, right upper limb (principal); I10 Essential (primary) hypertension; E11.9 Type 2 diabetes mellitus without complications; K21.9 Gastro-esophageal reflux disease without esophagitis; G47.30 Sleep apnea, unspecified; E66.01 Morbid (severe) obesity due to excess calories; Z68.42 Body mass index [BMI] 45.0-49.9, adult; Z79.891 Long term (current) use of opiate analgesic; Z79.899 Other long term (current) drug therapy; Z99.89 Dependence on other enabling machines and devices; Z98.890 Other specified postprocedural states; Z80.42 Family history of malignant neoplasm of prostate
CPT/HCPCS: 29848; A9270; J0690; J2003; J2004; J2250; J2704; J3010; J7120

== ENCOUNTER 2025-03-07 08:20 | Outpatient (CLI) | payer OTHER, SELFPAY ==
--- OUTSIDE RECORDS SUMMARY | 2025-03-07 08:46 | XMS_ITS | Clinical Summary ---
Author Organization [facility] Address [address] [place] [address] Care Team Providers Care Form Raiser Name Role Phone Alden Glover MD Primary Care Provider [phone] Allergies No known active allergies Medications Cholecalciferol (VITAMIN D) 125 MCG (5000 UT) Cap 5 Active Bacillus Coagulans-Inulin (PROBIOTIC) 1-250 BILLION-MG Cap 1 Active multi vitamin/minerals (THERA-M ENHANCED) tablet Take 1 tablet by mouth daily. Active clotrimazole (LOTRIMIN) 1 % creamIndications :Tinea Apply topically 2 (two) times daily. 113 g 3 3 Active pantoprazole EC (PROTONIX) 20 MG tabletIndication s:Gastroesophage al reflux disease without esophagitis Take 1 tablet by mouth once daily 90 tablet 3 5 Active sildenafil (VIAGRA) 100 MG tabletIndication s:Vasculogenic erectile dysfunction, unspecified vasculogenic erectile dysfunction type Take 1 tablet (100 mg total) by mouth as needed for Erectile Dysfunction. 17 tablet 5 5 Active Na sulfate-K sulfate-Mg sulfate (SUPREP BOWEL PREP) 17.5-3.13-1.6 GM/177ML SolutionIndicati ons:Screening for colon cancer Take 177 mLs by mouth every 12 (twelve) hours. See GI instructions 354 mL 5 Active lisinopril-hydro CHLOROthiazide (ZESTORETIC) 10-12.5 MG tabletIndication s:Primary hypertension Take 1 tablet by mouth once daily 90 tablet 3 5 Active Active Problems Problem Noted Date Diagnosed Date IBD (inflammatory bowel disease) 12/29/2024 Pulmonary nodule 12/04/2022 Atherosclerosis of aorta 07/03/2022 Atherosclerosis of both carotid arteries 023 Coronary artery disease invo lving citizen [place] coronary artery of citizen [place] heart without angina pectoris 07/03/2022 Calculus of gallbladder with out cholecystitis without obstruction 07/03/2022 Diabetes mellitus 08/04/2014 STACIE (obstructive sleep apnea) 08/06/2013 Overview [...] Date Resolved Date Screening for colon cancer 12/29/2024 1 Screening for colon cancer 08/15/2021 0 05/12/2022 Overview (08/15/2021): Added automatically from request for surgery [id number] Ulcerative colitis 08/06/2013 Overview (06/11/2022): Ulcerative colitis Encounters Date Type Department Care Team Description 12/29/2024 MyChart Message Enc [facility] Medical Group Multispecialty Care - [facility] [address] [facility] [address] [place] [address] Kathryn [facility] Provider colonoscopy instructions 12/29/2024 [facility] [address], [address] [place] [phone] Santy Duke MD 12/29/2024 Telephone [facility] [address] [place] [phone] Santy Duke MD Schedule Procedure 12/28/2024 Scan [facility] SRVCS Scanned, Doc [facility] Procedure (SCAN) 12/19/2024 Scan [facility] Scanned, [facility] Lab (SCAN) from Last 3 Months Immunizations Immunization Administration [...] AM CDT Legal Sex Male 11:11 AM TIRE TRIMMER HAND Gender Identity Male 08/05/2021 6:16 AM CDT [...] Upcoming Encounters Date Type Department Care Team (Latest Contact Info) Description 05/12/2025 11:12 AM TIRE TRIMMER HAND Hospital Encounter [facility] [address] [place] [address] Santy Duke MD [address] [phone] 05/12/2025 11:12 AM TIRE TRIMMER HAND - 05/12/2025 11:42 AM [facility] Surgery [facility] [address] [place] [address] Santy Duke MD [address] [address] COLONOSCOPY SCREENING Scheduled Procedures Name Priority Associated Diagnoses Date/Ti me COLONOSCOPY SCREENING Screening for colon cancer IBD (inflammatory bowel disease) 05/12/2025 11:12 AM TIRE TRIMMER HAND Health Maintenance Due Date Last Done Comments [...] 10/25/2034 10/25/2024, 08/08/2008 Hepatitis C Completed 10/10/2024, 11/14/2021 PHQ-2 (Physician [place]) Completed 10/25/2024 Hepatitis A Vaccines Aged Out No long er eligible based on patient's age to complete this topic Meningococcal B Vaccine Aged Out No l onger eligible based on patient's age to complete this topic Meningococcal Vaccine Aged Out No lesa humaira eligible based on patient's age to complete this topic RSV Immunizations Under 20 Months Aged Out No longer eligible based on patient's age to complete this topic Procedures Procedure Name Priority Date/Time Associated Diagnosis Comments PROCEDURE GENERIC (SCAN ORDER) 12/28/2024 OUTSIDE LAB (SCAN ORDER) 12/19/2024 HEMOGLOBIN, GLYCOSYLATED Routine 09/28/2024 7:21 AM CDT Type 2 diabetes mellitus with other circulatory complication, with long-term current use of insulin ([facility]) Healthcare maintenance DIABETIC RETINOPATHY EXAM (NEGATIVE)(SCAN ORDER) Routine 03/18/2023 LIPID PANEL Routine 11/20/2022 HEPATITIS C ANTIBODY W/RFX TO HCV RNA Routine 11/14/2021 7:36 AM CDT Need for hepatitis C screening test COLONOSCOPY Routine 09/26/2021 11:40 AM CDT from Last 3 Months or Most Recently Relevant to Health Maintenance Results * PROCEDURE GENERIC (SCAN ORDER) (12/28/2024) 12/28/2024 [facility] Scanned SCANNING Final Resu lt * OUTSIDE LAB (SCAN ORDER) (12/19/2024) 12/19/2024 [facility] Scanned SCANNING Final Resu lt * (ABNORMAL) HEMOGLOBIN, GLYCOSYLATED (09/28/2024 7:21 AM CDT) HGB A1C 7.0(H) <5.7 % of total Hgb [facility] TREASURE LEWIS Comment: For someone without known diabetes, a [...] AM CDT 09/28/2024 7:22 AM CDT Narrative [facility] [place] [facility] - 09/29/2024 7:13 AM CDT FASTING:YES FASTING: YES Resulting Agency Comment Performing Organization Information: Site ID: [id number] Name: [facility] Address: [address] [place] [address] Director: Gill Miller Alden Glover MD LABORATORY Final Result [facility] [place] [facility] [id number] * DIABETIC RETINOPATHY EXAM (NEGATIVE) (03/18/2023) Result [facility] Scanned SCANNING Final Resu lt Performing Organization Address [facility] Co de Phone Number [facility] ONBASE * LIPID PANEL (11/20/2022) CHOLESTEROL 169 HDL 38 TRIGLYCERIDES 83 NON HDL CHOLESTEROL 131 CHOL/HDL RATIO 4 LDL (CALCULATED) 114 11/20/2022 Result [facility] Abstract LABORATORY Final Res ult * HEPATITIS [...] a test for HCV RNA (test code 32799) is suggested. For additional information please refer to http://education.eReceipts[employer]faq/JJK17v9 (This link is being provided for informational/ educational purposes only.) 11/14/2021 7:36 AM CDT 11/14/2021 7:36 AM CDT Alden Glover MD LABORATORY Final Result Performing Organization Address City/[facility]/ZIP Co de Phone Number [facility] [place] [address] [address] [phone] from Last 3 Months or Most Recently Relevant to Health Maintenance Insurance [employer] Care Teams Form Raiser Relationship Specialty Start Date End Date Alden Glover MD [address] [facility] [address] [place] [address] PCP - General FAMILY PRACTICE 08/07/21
--- OUTSIDE RECORDS SUMMARY | 2025-03-07 08:46 | XMS_ITS | Encounter Summary ---
Author Organization [facility] Address [address] [place] [address] Phone Care Team Providers Care Tip Printer Name Role Phone Trang Ford MD Primary Care Provider Reason for Visit * Reason Comments Medication Refill Encounter Details Date Type Department Care Team (Late st Contact Info) Description 07/01/2021 Refill [facility] - [facility] [address] [place] [address] [place] [address] [place] [address] Medication Refill Social History Tobacco Use Types [...] Total Score: 0 04/24/19 21 1:40 PM PREPARATION CENTER COORDINATOR documented as of this encounter Care Teams Tip Printer Relationship Specialty Start Date End Date Trang Ford MD PCP - General Family Medicine 03/10/17 08/12/21 documented as of this encounter
--- OUTSIDE RECORDS SUMMARY | 2025-03-07 08:46 | XMS_ITS | Encounter Summary ---
Author Organization [facility] Address [address] [place] [address] Care Team Providers Care Oven Builder Name Role Phone Alden Glover MD Primary Care Provider [phone] Encounter Details Date Type Department Care Team (Latest Contact Info) Description 12/29/2024 8aweek Message Enc [facility] Medical Group Multispecialty Care - [address] [place] [address] [place], [facility] Provider colonoscopy instructions Social History Tobacco Use Types Packs/Day Years Used Date Smoking Tobacco: Never Smokeless Tobacco: Never Alcohol Use Standard Drinks/Week Comments Never 0 (1 standard drink = 0.6 oz pur e alcohol) PHQ-2 Answer Date Recorded Patient Health Questionnaire-2 Score 0 10/25/2024 Sex and Gender Information Value Date Recorded Sex Assigned at Male 10/25/2024 8:02 AM CDT Legal Sex Male 11:11 AM DIRECT SERVICE PROVIDER Gender Identity Male 08/05/2021 6:16 AM CDT Sexual Orientation Straight 08/05/2021 6: 16 AM CDT documented as of this encounter Plan of Treatment Upcoming Encounters Date Type Department Care Team (Latest Contact Info) Description 05/12/2025 11:12 AM [facility] Hospital Encounter [facility] [address] [place] [address] Santy Duke MD [address] [place] [address] [address] [facility] [place], [place] [phone] 05/12/2025 11:12 AM DIRECT SERVICE PROVIDER - 05/12/2025 11:42 AM DIRECT SERVICE PROVIDER Surgery [facility] [address] [place] [address] Santy Duke MD [address] [place] [address] [address] [place] [address] COLONOSCOPY SCREENING Scheduled Procedures Name Priority Associated Diagnoses Date/Ti me COLONOSCOPY SCREENING Screening for colon cancer IBD (inflammatory bowel disease) 05/12/2025 11:12 AM DIRECT SERVICE PROVIDER documented as of this encounter Visit Diagnoses Not on filedocumented in this encounter Care Teams Oven Builder Relationship Specialty Start Date End Date Alden Glover MD [address] [facility] [address] [place] [address] PCP - General FAMILY PRACTICE 08/07/21 documented as of this encounter
--- OUTSIDE RECORDS SUMMARY | 2025-03-07 08:46 | XMS_ITS | Encounter Summary ---
Author Organization [facility] Address [address] [place] [address] Phone Care Team Providers Care Senior Logistics Manager Name Role Phone Unavailable Primary Care Provider Unavailabl e Reason for Visit * Reason Comments Medication Refill Encounter Details Date Type Department Care Team (Late st Contact Info) Description 11/10/2022 Refill [facility] - Family [facility] [address] [place] [address] [place] [address] [place] [address] Medication Refill Social History Tobacco Use Types [...] Total Score: 0 04/24/19 21 1:40 PM COVER MACHINE OPERATOR documented as of this encounter
--- OUTSIDE RECORDS SUMMARY | 2025-03-07 08:46 | XMS_ITS | Encounter Summary ---
Author Organization [facility] Address [address] [place] [address] Phone Care Team Providers Care Tile Designer Name Role Phone Unavailable Primary Care Provider Unavailabl e Reason for Visit * Reason Comments Medication Refill Encounter Details Date Type Department Care Team (Late st Contact Info) Description 11/07/2021 Refill [facility] - Family [facility] [address] [place] [address] [place] [address] [place] [address] Medication Refill Social History Tobacco Use Types [...] Total Score: 0 04/24/19 21 1:40 PM SPANISH LANGUAGE LECTURER documented as of this encounter
--- OUTSIDE RECORDS SUMMARY | 2025-03-07 08:46 | XMS_ITS | Encounter Summary ---
Author Organization [facility] Address [address] [place] [address] Phone Care Team Providers Care Cutting Inspector Name Role Phone Trang Ford MD Primary Care Provider Reason for Visit * Reason Comments Medication Refill Encounter Details Date Type Department Care Team (Late st Contact Info) Description 04/22/2020 Refill [facility] - [facility] [address] [place] [address] Brooke Mcarthur, [facility] [address] [place] [address] Medication Refill Social History Tobacco Use Types [...] COVID-19? No / Unsure 04/24/2020 1:32 PM ADULT DAY CARE WORKER documented as of this encounter Functional Status documented as of this encounter Mental Status * Question Answer Entry Date Author BP 128/78 04/24/2020 1:46 PM ADULT DAY CARE WORKER Flor Cerda MA Temp 98.3 04/24/2020 1:46 PM ADULT DAY CARE WORKER Flor Cerda MA Pulse 87 04/24/2020 1:46 PM ADULT DAY CARE WORKER Flor Cerda MA SpO2 97 04/24/2020 1:46 PM ADULT DAY CARE WORKER Flor Cerda MA * Question Answer Entry Date Author Initial Score 0 04/24/2020 1:40 PM ADULT DAY CARE WORKER Shakira Grubbs RMA documented in this encounter Miscellaneous Notes * Telephone Encounter - Emily Ortiz RN - 04/24/2020 3:06 PM CST The original prescription was reordered on 04/24/2020 by Trang Ford MD. duplicate T DAY CARE WORKER * Telephone Encounter - Emily Ortiz RN - 04/23/2020 10:23 AM CST OV 04/24/20 T DAY CARE WORKER documented in this encounter Plan of Treatment Not on file documented as of this encounter Visit Diagnoses Not on filedocumented in this encounter Additional Health Concerns Infection Onset Date Last Indicated Resolved Time COVID - 19 Confirmed 03/28/2021 03/28/2021 022 12:16 AM ADULT DAY CARE WORKER Assessment Noted Time PHQ-9 Depression Total Score: 0 05/05/19 20 1:12 PM ADULT DAY CARE WORKER documented as of this encounter Care Teams Cutting Inspector Relationship Specialty Start Date End Date Trang Ford MD PCP - General Family Medicine 03/10/17 08/12/21 documented as of this encounter
--- OUTSIDE RECORDS SUMMARY | 2025-03-07 08:46 | XMS_ITS | Encounter Summary ---
Author Organization [facility] Address [address] [place] [address] Care Team Providers Care Building Guard Deputy Sheriff Name Role Phone Alden Glover MD Primary Care Provider [phone] Encounter Details Date Type Department Care Team (Late st Contact Info) Description 09/02/2024 MyChart Message Enc [facility] Medical Group Family Medicine - [place] [address] [facility], [address] [place] [phone] Alden Glover MD [address] [facility] [address] [place] [address] [facility], [place] [phone] New patient Social History Tobacco Use Types Packs/Day Years Used Date Smoking Tobacco: Never Smokeless Tobacco: Never Alcohol Use Standard Drinks/Week Comments Never 0 (1 standard drink = 0.6 oz pur e alcohol) PHQ-2 Answer Date Recorded Patient Health Questionnaire-2 Score 0 08/19/2023 Sex and Gender Information Value Date Recorded Sex Assigned at Male 10/25/2024 8:02 AM CDT Legal Sex Male 11:11 AM INSURANCE VERIFIER Gender Identity Male 08/05/2021 6:16 AM CDT Sexual Orientation Straight 08/05/2021 6: 16 AM CDT documented as of this encounter Plan of Treatment Upcoming Encounters Date Type Department Care Team (Latest Contact Info) Description 05/12/2025 11:12 AM INSURANCE VERIFIER Hospital Encounter [facility] [address] [place] [address] Santy Duke MD 3 [facility] [address] [place] [address] 05/12/2025 11:12 AM INSURANCE VERIFIER - 05/12/2025 11:42 AM INSURANCE VERIFIER Surgery [facility] Surgery [address] [place] [address] Santy Duke MD [address] [place] [address] [address] [place] [address] COLONOSCOPY SCREENING Scheduled Procedures Name Priority Associated Diagnoses Date/Ti me COLONOSCOPY SCREENING Screening for colon cancer IBD (inflammatory bowel disease) 05/12/2025 11:12 AM INSURANCE VERIFIER documented as of this encounter Visit Diagnoses Not on filedocumented in this encounter Care Teams Building Guard Deputy Sheriff Relationship Specialty Start Date End Date Alden Glover MD [address] [facility] [address] [place] [address] PCP - General FAMILY PRACTICE 08/07/21 documented as of this encounter
--- OUTSIDE RECORDS SUMMARY | 2025-03-07 08:46 | XMS_ITS | Clinical Summary ---
Author Organization [facility] Address [address] [place] [address] Care Team Providers Care Speeder Operator Name Role Phone Denise Burgess MD Primary Care Provider [phone] Social History Tobacco Use Types Packs/Day Years Used Date Smoking Tobacco: Never Assessed Sex and Gender Information Value Date Recorded Sex Assigned at Not on file Legal Sex Male 3:01 AM GROUP INSURANCE SPECIAL AGENT Gender Identity Not on file Sexual Orientation [...] 2022 INFLUENZA VACCINE (#1) 2024 Care Teams Speeder Operator Relationship Specialty Start Date End Date Denise Burgses MD [address] [place] [place] [address] PCP - General Internal Medicine 09/07/13
--- OUTSIDE RECORDS SUMMARY | 2025-03-07 08:46 | XMS_ITS | Encounter Summary ---
Author Organization [facility] Address [address] [place] [address] Care Team Providers Care Equine Breeder Name Role Phone Alden Glover MD Primary Care Provider [phone] Encounter Details Date Type Department Care Team (Latest Contact Info) Description 11/10/2023 Plingat Message Enc [facility] Medical Group Multispecialty Care - [facility] [address] [facility], [address] [place] [address] Johan Lazar MD 3 [place] [address] EMG results sent to hand surgeon Social [...] AM CDT Legal Sex Male 11:11 AM RETORT FORKER Gender Identity Male 08/05/2021 6:16 AM CDT Sexual Orientation Straight 08/05/2021 6: 16 AM CDT documented as of this encounter Plan of Treatment Upcoming Encounters Date Type Department Care Team (Latest Contact Info) Description 05/12/2025 11:12 AM RETORT FORKER Hospital Encounter [facility] [address] [place], [place] [phone] Santy Duke MD 3 [facility] [address] [place] [address] 05/12/2025 11:12 AM RETORT FORKER - 05/12/2025 11:42 AM RETORT FORKER Surgery [facility] [address] [place] [address] Santy Duke MD 3 [facility] [address] [place] [address] COLONOSCOPY SCREENING Scheduled Procedures Name Priority Associated Diagnoses Date/Ti me COLONOSCOPY SCREENING Screening for colon cancer IBD (inflammatory bowel disease) 05/12/2025 11:12 AM RETORT FORKER documented as of this encounter Visit Diagnoses Not on filedocumented in this encounter Care Teams Equine Breeder Relationship Specialty Start Date End Date Alden Glover MD [address] [facility] [address] [place] [address] PCP - General FAMILY PRACTICE 08/07/21 documented as of this encounter
--- OUTSIDE RECORDS SUMMARY | 2025-03-07 08:46 | XMS_ITS | Clinical Summary ---
Author Organization [facility] [address] Address [address] [place] [address] Phone Care Team Providers Care Product Builder Name Role Phone Trang Ford MD Primary Care Provider [phone] Allergies No known active allergies Medications cholecalciferol [...] 04/27/2019 Assessment & Plan (04/27/2019 10:47 AM TILER): Daily PT/OT. Keep as active as possible during the day. Uncontrolled type 2 diabetes mellitus with hyper glycemia 04/24/2019 Assessment & Plan (04/28/2019 12:21 PM TILER): a1c 7.8% on home metformin. Sugars well controlled here so will restart home metformin and stop insulin, stop accuchecks. Acute respiratory failure with hypercapnia 04/20 Assessment & Plan (04/29/2019 10:34 AM TILER): Acute issue resolved. Assessment & Plan (04/27/2019 10:45 AM TILER): - Continue BiPAP at 20/8 cm H2O at night, with sleep, and as needed during the day; until more definitive setting available. Most recent AM-ABG from 04/25 showed acceptable levels of PaCO2 - Minimize narcotics and avoid benzos Assessment & Plan (04/26/2019 9:30 AM TILER): - Continue BiPAP at 20/8 cm H2O at night, with sleep, and as needed during the day. - Consult sleep medicine to assess for underlying STACIE and obesity hypoventilation and residential need for PAP with sleep. - Minimize narcotics and avoid all benzos Assessment & Plan (04/25/2019 5:09 PM TILER): Stable ABGs on current setting 20/8 with pH 7.35 and pCO2 60-68. - Continue BiPAP at 20/8 cm H2O at night, with sleep, and as needed during the day. - Consult sleep medicine to assess for underlying STACIE and obesity hypoventilation and residential need for PAP with sleep. 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 - Minimize narcotics and avoid all benzos Assessment & Plan (04/24/2019 11:19 AM TILER): STACIE/OHS. Extubated to BIPAP after surgery 20/8/30%. Refused it on floor and had hypercapnic resp failure, here in the [facility]CR[facility] for possible BIPAP titration. 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 - Minimize narcotics and avoid all benzos Assessment & Plan (04/22/2019 12:31 PM TILER): Progressively somnolent and hypercapnic throughout yesterday despite [...] benzos Assessment & Plan (04/21/2019 10:01 AM TILER): Normal sleep study 10 years ago, but [...] study. Assessment & Plan (04/20/2019 7:44 PM TILER): Normal sleep study 10 years ago, but [...] (04/18/2019): Added automatically from request for surgery [id number] Assessment & Plan (04/27/2019 10:46 AM TILER): - Abx per Urology. Assessment & Plan (04/25/2019 5:08 PM TILER): - continue current abx per primary team - OR today for wound closure with urology Assessment & Plan (04/28/2019 12:20 PM TILER): Urology and ACCS following. Hooker catheter to [...] therapy Assessment & Plan (04/22/2019 12:23 PM TILER): - continue abx per primary team - OR today Assessment & Plan (04/20/2019 7:32 PM TILER): - continue abx per primary team Obesity, Class III, BMI 40-49.9 (morbid obesity) 08/06/2013 Overview (06/25/2016): Obesity, morbid (more than 100 lbs over ideal weig Assessment & Plan (04/24/2019 11:23 AM TILER): BMI 40.6. Will need manager drilling consultation. Gastroesophageal reflux disease 08/06/2013 Overview (06/26/2016): GERD (gastroesophageal reflux disease) Assessment & Plan (11/21/2022 2:33 PM CDT): Continue protonix Benign essential hypertension 08/06/2013 Overview (06/26/2016): Benign essential hypertension Assessment & Plan (11/21/2022 2:35 PM CDT): Takes lisinopril HCTZ 10-12.5 at home - continue lisinopril, can hold HCTZ for now unless hypertensive Assessment & Plan (04/28/2019 12:20 PM TILER): Hold lisinopril/hctz 10/12.5. BP controlled here. Will [...] nightly Assessment & Plan (04/29/2019 10:37 AM TILER): -- chronic settings now available and pt firmly believes in treatment -- BiPAP 22/10 cm H2O with a Bi-Flex setting of 3, 2 lpm oxygen and HOB of 40 degrees. -- home device to be delivered today -- will f/u in Sleep Clinic. Assessment & Plan (04/28/2019 12:21 PM TILER): Had sleep study done, needs pressure titration study. Severe sleep apnea with severe hypoxia. - sleep consult - continue current settings for now - home bipap ordered, not necessary that he stay here for it but ordered through DME Assessment & Plan (04/27/2019 10:47 AM TILER): Appears to have very severe STACIE/OHS. --Request [...] on file Legal Sex Male 12:48 PM TILER Gender Identity Male 07/20/2019 12:49 PM CDT Sexual Orientation Straight 07/20/2019 12 :49 PM CDT Last Filed Vital Signs Vital Sign [...] 90 - 130 mL/min/1. 73 m2 [facility] Comment: Interpretive Data Reference Interval Normal [...] 9:19 PM CDT 11/20/2022 9:35 PM CDT Ridge Lynn MD LAB BLOOD ORDERABLES Final Res ult Performing Organization Address [facility] de Phone Number [facility] of [address] [place] [address] * (ABNORMAL) Hemoglobin A1c (11/20/2022 9:19 PM CDT) Hgb A1C 6.9(H) 4.0 - 5.6 % [facility] Estimated Average Glucose 151 mg/dL [facility] Comment: The ADA recommends reporting an estimated Average Glucose (eAG) with all Hemoglobin A1c results using the equation derived from a study of 507 normal and diabetic adults. Minority populations were underrepresented and children were not included. (Diabetes Care 2020; 43(S1): S66-S76). The eAG is not equivalent to a fasting glucose. Blood 11/20/2022 9:19 PM CDT 11/20/2022 9:41 PM CDT Araceli Lombardi MD LAB BLOOD ORDERABLES Final Result Performing Organization Address [facility] [place] [address] * (ABNORMAL) Lipid panel (11/20/2022 9:19 PM CDT) Cholesterol 169 30 - 199 mg/dL [facility] Comment: Interpretive Data Ages < or [...] on 2017. Triglycerides 83 <=149 mg/dL [facility] Comment: Interpretive Data Ages < or [...] on 2017. HDL 38(L) >=40 mg/dL [facility] Comment: Interpretive Data Ages < or [...] 2017. LDL, calculated 114 <=129 mg/dL [facility] Comment: Interpretive Data Ages < or [...] on 2017. Non-HDL Cholesterol 131 mg/dL [facility] Comment: Interpretive Data Ages < or [...] last revised on 2017. Chol/HDL ratio 4 [facility] Blood 11/20/2022 9:19 PM CDT 11/20/2022 9:35 PM CDT Araceli Lombardi MD LAB BLOOD ORDERABLES Final Result [facility] Department [place] [address] from Last 3 Months or Most Recently Relevant to Health [place] [address] [facility] [address] [address] [place], [place] [address]O [facility] O Advance Directives For more information, please contact: [phone] * Full Code (Latest Code Status on File) Date Activated Date Inactivated Comments 11/21/2022 4:22 PM 11/22/2022 7:21 PM * Full Code Date Activated Date Inactivated Comments 04/18/2019 8:29 PM 04/29/2019 9:15 PM Care Teams Product Builder Relationship Specialty Start Date End Date Trang Ford MD PCP - General 04/10/17
--- OUTSIDE RECORDS SUMMARY | 2025-03-07 08:46 | XMS_ITS | Encounter Summary ---
Author Organization [facility] Address [address] [place] [address] Phone Care Team Providers Care Pharmacy Consultant Name Role Phone Trang Ford MD Primary Care Provider Reason for Visit * Reason Comments Medication Refill Encounter Details Date Type Department Care Team (Late st Contact Info) Description 08/12/2021 Refill [facility] [place] [address] [place] [address] [place] [address] [place] [address] Medication Refill Social History Tobacco [...] Total Score: 0 04/24/19 21 1:40 PM STATEMENT DISTRIBUTION CLERK documented as of this encounter Care Teams Pharmacy Consultant Relationship Specialty Start Date End Date Trang Ford MD PCP - General Family Medicine 03/10/17 08/12/21 documented as of this encounter
--- OUTSIDE RECORDS SUMMARY | 2025-03-07 08:46 | XMS_ITS | Encounter Summary ---
Author Organization [facility] Address [address] [place] [address] Care Team Providers Care Ceo And Co Founder Name Role Phone Alden Glover MD Primary Care Provider [phone] Encounter Details Date Type Department Care Team (Late st Contact Info) Description 06/04/2022 MyChart Message Enc [facility] Family Medicine - [place] [address] [place] [phone] Alden Glover MD [address] [place] [address] PET Scan Social History Tobacco Use Types [...] AM CDT Legal Sex Male 11:11 AM MANAGER BANKING Gender Identity Male 08/05/2021 6:16 AM CDT [...] (Latest Contact Info) Description 05/12/2025 11:12 AM MANAGER BANKING Hospital Encounter [facility] [address] [place] [address] Santy Duke MD [address] [facility] [address] [place] [address] 05/12/2025 11:12 AM MANAGER BANKING - 05/12/2025 11:42 AM MANAGER BANKING Surgery [facility] [address] [place] [address] Santy Duke MD 3 [facility] [address] [place] [address] COLONOSCOPY SCREENING Scheduled Procedures Name Priority Associated Diagnoses Date/Ti me COLONOSCOPY SCREENING Screening for colon cancer IBD (inflammatory bowel disease) 05/12/2025 11:12 AM MANAGER BANKING documented as of this encounter Visit Diagnoses Not on filedocumented in this encounter Care Teams Ceo And Co Founder Relationship Specialty Start Date End Date Alden Glover MD [address] [facility] [address] [place] [address] PCP - General FAMILY PRACTICE 08/07/21 documented as of this encounter
--- OUTSIDE RECORDS SUMMARY | 2025-03-07 08:46 | XMS_ITS | Clinical Summary ---
Author Organization [facility] Address [address] [place] [address] Care Team Providers Care Front Desk Name Role Phone Alden Glover MD Primary Care Provider [phone] Source Comments [facility],non-owned Affiliates and Associated Physician Practices is amultiple site organization consisting of ambulatory clinics and hospital sitesin [place], [place], [place] and [place]. This disclosure is being madepursuant to the Care Everywhere program and may not contain all information available regarding this patient. Last updated 17.[facility] Allergies No known active allergies Medications * [...] times daily 120 capsule 1 5 Active Social History Tobacco Use Types Packs/Day Years [...] - Oxygen Saturation 93% 03/10/2024 8:32 AM METAL DEALER Inhaled Oxygen Concentration - - Weight 150.2 kg (331 lb 3.2 oz) 10/10/2024 2:53 PM CDT Height 170.2 cm (5' 7.01) 10/10/2024 2:53 PM CD T Body Mass Index 51.86 10/10/2024 2:53 PM CDT Plan of Treatment Health Maintenance [...] 2022 DEPRESSION SCREENING 03/23/2024 03/10/2024 COVID-19 VACCINE ( - 2024- season) 2024 06/22/2021, 07/10/2020, 06/19/2020 INFLUENZA VACCINE (#1) 2024 , 04/24/2020, 04/29/2019, Additional history exists SCREENING FOR DIABETES 10/11/2027 10/10/2024, 12/19/ 2024 LIPID TESTING 11/21/2027 11/20/2022, 11/14/2021 COLON MONITORING 09/27/2031 09/26/2021 COLONOSCOPY - COLON CA SCREENING 09/27/2031 09/26/2021 Colorectal Cancer Screening 09/27/2031 HEPATITIS C SCREENING Completed 10/10/2024 HIB VACCINE Aged Out No longer eligi [...] Procedure Name Priority Date/Time Associated Diagnosis Comments COMPREHENSIVE METABOLIC PANEL Routine 10/10/2024 3:41 PM CDT HLA B27 (HLA B27 positive) HEPATITIS C ANTIBODY Routine 10/10/2024 3:41 PM CDT HLA B27 (HLA B27 positive) from Last 3 Months or Most Recently Relevant to Health Maintenance Results * (ABNORMAL) COMPREHENSIVE METABOLIC PANEL (10/10/2024 3:41 PM CDT) BUN 12 7 - 26 mg/dL 10/10/2024 4:[address] [facility] Creatinine 0.62(L) 0.71 - 1.16 mg/dL 10/10/2024 4:[address] [facility] Sodium 141 136 - 145 mmol/L 10/10/2024 4:[address] [facility] Potassium 4.2 3.5 - 4.5 mmol/L 10/10/2024 4:[address] [facility] Chloride 104 98 - 107 mmol/L 10/10/2024 4:[address] [facility] CO2 29 22 - 29 mmol/L 10/10/2024 4:[address] [facility] Glucose 119(H) 70 - 99 mg/dL 10/10/2024 4:[address] [facility] Calcium 9.6 8.4 - 10.2 mg/dL 10/10/2024 4:40 PM [facility]T [facility] Protein Total 7.5 6.0 - 8.3 g/dL 10/10/2024 4:40 PM [facility] Albumin 4.5 3.4 - 5.0 g/dL 10/10/2024 4:40 PM [facility] Bilirubin Total 0.5 0.2 - 1.2 mg/dL 10/10/2024 4:40 PM [facility] Alkaline Phosphatase 62 40 - 150 U/L 10/10/2024 4:40 PM [facility] ALT 33 5 - 55 U/L 10/10/2024 4:40 PM [facility] AST 23 5 - 34 U/L 10/10/2024 4:40 PM [facility] Anion Gap 8 6 - 16 10/10/2024 4:40 PM [facility] BUN/Creatinine Ratio 19 7 - 23 10/10/2024 4:40 PM [facility] Osmolality Calculated 293 275 - 295 mOsm/kg 10/10/2024 4:40 PM [facility] Albumin/Globulin Ratio 1.5 1.1 - 2.3 10/10/2024 4:40 PM [facility] eGFR by CKD-EPI >90 >=90 mL/min/1.7 3 m2 10/10/2024 4:40 PM [facility] Comment:Estimated Glomerular Filtration Rate (eGFR) calculated using the CKD-EPI Creatinine Equation (2020), per the National Kidney Foundation and [place] Society of Nephrology recommendations. Blood BLOOD SPECIMEN / Unknown Lab Venipuncture / Unknown 10/10/2024 3:41 PM CDT 10/10/2024 4:09 PM CDT us James Saucedo MD LAB - CHEMISTRY ORDERABLES Final Result [facility] [address] [place] [address], [facility] [phone] * HEPATITIS C ANTIBODY (10/10/2024 3:41 PM CDT) Hepatitis C Antibody Non-react justin Non-reac tive 10/10/2024 4:50 PM [facility] Comment:Hepatitis C Antibody screen indicates no [...] MD LAB - CHEMISTRY ORDERABLES Final Result [facility] [address] [place] [address], [facility] [phone] from Last 3 Months or Most Recently Relevant to Health Maintenance [place] [address] [employer] Care Teams Front Desk Relationship Specialty Start Date End Date Alden Glover MD [address] [address] PCP - General Family Medicine 08/13/23
--- OUTSIDE RECORDS SUMMARY | 2025-03-07 08:46 | XMS_ITS | Encounter Summary ---
Author Organization [facility] Address [address] [place] [address] Care Team Providers Care Supervisor Small Appliance Assembly Name Role Phone Alden Glover MD Primary Care Provider [phone] Encounter Details Date Type Department Care Team (Late st Contact Info) Description 03/29/[address] [facility] Family Medicine - [place] [address] [place] [phone] Alden Glover MD [address] [facility], [place] [id number] New patients Social History Tobacco Use Types Packs/Day Years Used Date Smoking Tobacco: Never Smokeless Tobacco: Never Alcohol Use Standard Drinks/Week Comments Never 0 (1 standard drink = 0.6 oz pur e alcohol) PHQ-2 Answer Date Recorded Patient Health Questionnaire-2 Score 0 08/19/2023 Sex and Gender Information Value Date Recorded Sex Assigned at Male 10/25/2024 8:02 AM CDT Legal Sex Male 11:11 AM SYSTEM SOFTWARE PROGRAMMER Gender Identity Male 08/05/2021 6:16 AM CDT Sexual Orientation Straight 08/05/2021 6: 16 AM CDT documented as of this encounter Plan of Treatment Upcoming Encounters Date Type Department Care Team (Latest Contact Info) Description 05/12/2025 11:12 AM SYSTEM SOFTWARE PROGRAMMER Hospital Encounter [facility] [address] [place] [address] Santy Duke MD 3 [facility] [address] [place] [address] 05/12/2025 11:12 AM SYSTEM SOFTWARE PROGRAMMER - 05/12/2025 11:42 AM SYSTEM SOFTWARE PROGRAMMER Surgery [facility] Surgery [address] [place] [address] Santy Duke MD [address] [place] [address] [address] [place] [address] COLONOSCOPY SCREENING Scheduled Procedures Name Priority Associated Diagnoses Date/Ti me COLONOSCOPY SCREENING Screening for colon cancer IBD (inflammatory bowel disease) 05/12/2025 11:12 AM SYSTEM SOFTWARE PROGRAMMER documented as of this encounter Visit Diagnoses Not on filedocumented in this encounter Care Teams Supervisor Small Appliance Assembly Relationship Specialty Start Date End Date Alden Glover MD [address] [facility] [address] [place] [address] PCP - General FAMILY PRACTICE 08/07/21 documented as of this encounter
--- OUTSIDE RECORDS SUMMARY | 2025-03-07 08:46 | XMS_ITS | Clinical Summary ---
Author Organization [facility] Address [address] [place] [address] Phone Care Team Providers Care Torch Straightener And Heater Name Role Phone Unavailable Primary Care Provider [...] 75+ series) 06/15/2047 Human Papillomavirus (HPV) Immunization (No Doses Required) Completed Meningococcal Immunization (ACWY) Aged Out No longer eligible based on patient's age to complete this topic Rotavirus Immunization Aged Out No lo nger eligible based on patient's age to complete this topic Procedures Procedure Name Priority Date/Time Associated Diagnosis Comments DILATED EYE EXAM Routine 06/18/2020 CMP (COMPREHENSIVE METABOLIC PANEL) Routine 04/26/2020 Type 2 diabetes mellitus without complication, unspecified whether [facility] insulin use (HCC) HEMOGLOBIN A1C W/ ESTIMATED GLUCOSE Routine 04/26/2020 Type 2 diabetes mellitus without complication, unspecified whether [facility] insulin use (HCC) from Last 3 Months or Most Recently Relevant to Health Maintenance Results * DILATED EYE EXAM (06/18/2020) us Not On File Provider PROCEDURE/MINOR SURGICAL OR DERABLES Final Result * HEMOGLOBIN A1C W/ ESTIMATED GLUCOSE (04/26/2020) HGB-A1C 7.6 % Blood 04/26/2020 Trang Ford MD CHEMISTRY ORDERABLES Final Result * CMP (COMPREHENSIVE METABOLIC PANEL) (04/26/2020) Blood Trang Ford MD CHEMISTRY ORDERABLES Final Result from Last 3 Months or Most Recently Relevant to Health Maintenance
--- OUTSIDE RECORDS SUMMARY | 2025-03-07 08:46 | XMS_ITS | Encounter Summary ---
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 Gender Identity Male 08/05/2021 6:16 AM CDT Sexual Orientation Straight 08/05/2021 6: 16 AM CDT documented as of this encounter Plan of Treatment Upcoming Encounters Date Type Department Care Team (Latest Contact Info) Description 05/12/2025 11:12 AM [facility] Hospital Encounter [facility] [address] [place] [address] Santy Duke MD [address] [place] [address] 05/12/2025 11:12 AM RAILWAY TRACK PLANT OPERATOR - 05/12/2025 11:42 AM RAILWAY TRACK PLANT OPERATOR Surgery [facility] [address] [place] [address] Santy Duke MD 3 [facility] [address] [place] [address] COLONOSCOPY SCREENING Scheduled Procedures Name Priority Associated Diagnoses Date/Ti me COLONOSCOPY SCREENING Screening for colon cancer IBD (inflammatory bowel disease) 05/12/2025 11:12 AM RAILWAY TRACK PLANT OPERATOR documented as of this encounter Procedures Procedure Name Priority Date/Time Associated Diagnosis Comments HEMOGLOBIN, GLYCOSYLATED Routine 11/20/2022 LIPID PANEL Routine 11/20/2022 documented in this encounter Results * LIPID PANEL (11/20/2022) CHOLESTEROL 169 HDL 38 TRIGLYCERIDES 83 NON HDL CHOLESTEROL 131 CHOL/HDL RATIO 4 LDL (CALCULATED) 114 11/20/2022 us [facility] Abstract LABORATORY Final Res ult * HEMOGLOBIN, GLYCOSYLATED (11/20/2022) HGB A1C 6.9 % 11/20/2022 us [facility] Abstract LABORATORY Final Res ult documented in this encounter Visit Diagnoses Not on filedocumented in this encounter Care Teams Ob Gyn Relationship Specialty Start Date End Date Alden Glover MD [address] [facility] [address] [place] [address] PCP - General FAMILY PRACTICE 08/07/21 documented as of this encounter
--- OUTSIDE RECORDS SUMMARY | 2025-03-07 08:46 | XMS_ITS | Encounter Summary ---
Author Organization [facility] Address [address] [place] [address] Phone Care Team Providers Care Advanced Practice Nurse Name Role Phone Trang Ford MD Primary Care Provider Reason for Visit * Reason Comments Medication Refill Encounter Details Date Type Department Care Team (Late st Contact Info) Description 06/17/2021 Refill [facility] [place] [address] [place] [address] [place] [address] [place] [address] Medication Refill Social History Tobacco [...] Total Score: 0 04/24/19 21 1:40 PM SURGICAL LEAD documented as of this encounter Care Teams Advanced Practice Nurse Relationship Specialty Start Date End Date Trang Ford MD PCP - General Family Medicine 03/10/17 08/12/21 documented as of this encounter
--- OUTSIDE RECORDS SUMMARY | 2025-03-07 08:46 | XMS_ITS | Encounter Summary ---
Author Organization [facility] Address [address] [place] [address] Care Team Providers Care Film Librarian Name Role Phone Alden Glover MD Primary Care Provider [phone] Encounter Details Date Type Department Care Team (Late st Contact Info) Description 05/19/2022 MyChart Message Enc [facility] Family Medicine - [place] [address] [place] [address] Alden Glover MD [address] [place] [address] CHEST WO CON Social [...] AM CDT Legal Sex Male 11:11 AM LANOLIN PLANT OPERATOR Gender Identity Male 08/05/2021 6:16 AM CDT Sexual Orientation Straight 08/05/2021 6: 16 AM CDT COVID-19 Exposure Response Date Recorded In the last 10 days, have yo u been in contact with someone who was confirmed or suspected to have Coronavirus/COVID-19? No / Unsure 05/19/2022 9:37 AM LANOLIN PLANT OPERATOR documented as of this encounter Plan of Treatment Upcoming Encounters Date Type Department Care Team (Latest Contact Info) Description 05/12/2025 11:12 AM LANOLIN PLANT OPERATOR Hospital Encounter [facility] [address] [place] [address] Santy Duke MD 3 [facility] [address] [place] [address] 05/12/2025 11:12 AM LANOLIN PLANT OPERATOR - 05/12/2025 11:42 AM LANOLIN PLANT OPERATOR [facility] [address] [place] [address] Santy Duke MD 3 [facility] [address] [place] [address] COLONOSCOPY SCREENING Scheduled Procedures Name Priority Associated Diagnoses Date/Ti me COLONOSCOPY SCREENING Screening for colon cancer IBD (inflammatory bowel disease) 05/12/2025 11:12 AM LANOLIN PLANT OPERATOR documented as of this encounter Visit Diagnoses Not on filedocumented in this encounter Care Teams Film Librarian Relationship Specialty Start Date End Date Alden Glover MD [address] [facility] [address] [place] [address] PCP - General FAMILY PRACTICE 08/07/21 documented as of this encounter
--- OUTSIDE RECORDS SUMMARY | 2025-03-07 08:46 | XMS_ITS | Encounter Summary ---
Author Organization [facility] Address [address] [place] [id number] Care Team Providers Care Fabric Pattern Grader Name Role Phone Alden Glover MD Primary Care Provider [phone] Encounter Details Date Type Department Care Team (Late st Contact Info) Description 05/09/2022 TheFriendMailt Message Enc [facility] Family Medicine - [place] [address] [facility] [address], [address] [place] [phone] Alden Glover MD [address] [place] [address] Carl[place] Urine Social History Tobacco Use Types [...] AM CDT Legal Sex Male 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 No / Unsure 05/12/2022 7:59 AM VICE PRESIDENT [employer] documented as of this encounter Functional Status * Over the past 2 weeks, how often have you been bothered by any of the following problems? Question Answer Date of Assessment Author Status Little interest or pleasure in doing things Not at all 05/12/2022 8:36 AM VICE PRESIDENT [employer] Che Vincent MA Acti ve Feeling down, depressed, or hopeless Not at all 05/12/2022 8:36 AM VICE PRESIDENT [employer] Che Vincent MA Active Patient Health Questionnaire-2 Score 0 05/12/2022 8:36 AM VICE PRESIDENT [employer] Che Vincent M A Active documented as of this encounter Plan of Treatment Upcoming Encounters Date Type Department Care Team (Latest Contact Info) Description 05/12/2025 11:12 AM VICE PRESIDENT [employer] Hospital Encounter [facility] [address] [place] [address] Santy Duke MD [address] [facility] [address] [place] [address] 05/12/2025 11:12 AM VICE PRESIDENT [employer] - 05/12/2025 11:42 AM VICE PRESIDENT [employer] Surgery [facility] [address] [place] [address] Santy Duke MD 3 [facility] [address] [place] [address] COLONOSCOPY SCREENING Scheduled Procedures Name Priority Associated Diagnoses Date/Ti me COLONOSCOPY SCREENING Screening for colon cancer IBD (inflammatory bowel disease) 05/12/2025 11:12 AM VICE PRESIDENT [employer] documented as of this encounter Visit Diagnoses Not on filedocumented in this encounter Care Teams Fabric Pattern Grader Relationship Specialty Start Date End Date Alden Glover MD [address] [facility] [address] [place] [address] PCP - General FAMILY PRACTICE 08/07/21 documented as of this encounter
--- OUTSIDE RECORDS SUMMARY | 2025-03-07 08:46 | XMS_ITS | Encounter Summary ---
Author Organization [facility] Address [address] [place] [address] Care Team Providers Care Blanket Folder Name Role Phone Alden Glover MD Primary Care Provider Encounter Details Date Type Department Care Team (Late st Contact Info) Description 08/19/2023 MyChart Message Enc [facility] Family Medicine - [place] [address], [address] [place] [phone] Alden Glover MD [address] [place] [address] Lab Results Social History Tobacco Use Types Packs/Day Years Used Date Smoking Tobacco: Never Smokeless Tobacco: Never Alcohol Use Standard Drinks/Week Comments Never 0 (1 standard drink = 0.6 oz pur e alcohol) PHQ-2 Answer Date Recorded Patient Health Questionnaire-2 Score 0 08/19/2023 Sex and Gender Information Value Date Recorded Sex Assigned at Male 10/25/2024 8:02 AM CDT Legal Sex Male 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 Gender Identity Male 08/05/2021 6:16 AM CDT [...] (Latest Contact Info) Description 05/12/2025 11:12 AM SPECIAL DELIVERY CLERK Hospital Encounter [facility] [address] [place] [address] Santy Duke MD [address] [facility] [address] [place] [address] 05/12/2025 11:12 AM SPECIAL DELIVERY CLERK - 05/12/2025 11:42 AM SPECIAL DELIVERY CLERK Surgery [facility] [address] [place] [address] Santy Duke MD [address] [facility] [address] [place] [address] COLONOSCOPY SCREENING Scheduled Procedures Name Priority Associated Diagnoses Date/Ti me COLONOSCOPY SCREENING Screening for colon cancer IBD (inflammatory bowel disease) 05/12/2025 11:12 AM SPECIAL DELIVERY CLERK documented as of this encounter Visit Diagnoses Not on filedocumented in this encounter Care Teams Blanket Folder Relationship Specialty Start Date End Date Alden Glover MD [address] [facility] [address] [place] [address] PCP - General FAMILY PRACTICE 08/07/21 documented as of this encounter
[2025-03-07 09:19] LABS: Anion Gap 6 mmol/L (4-12); Blood Urea Nitrogen 16 mg/dL (9-20); Calcium 9.5 mg/dL (8.4-10.2); Carbon Dioxide 28 mmol/L (22-30); Chloride 107 mmol/L (98-107); Estimated Glomerular Filt Rate > 60; Glucose 181 mg/dL (65-110); Potassium 4.2 mmol/L (3.4-5.0); Sodium 141 mmol/L (137-145)
== END 2025-03-07 08:21 | disposition home or self-care (01) ==
LOC: ANHSURGERY 08:27
PROVIDERS: Anesthesiology; PCP Family Medicine; Visit Provider Plastic Surgery
DX: Z01.818 Encounter for other preprocedural examination (principal); I10 Essential (primary) hypertension
CPT/HCPCS: 36415; 80048

== ENCOUNTER 2025-03-08 02:30 | Day surgery (SDC) | payer OTHER, SELFPAY ==
--- NOTE | 2025-03-06 14:27 | PC.NURSE ---
[facility] has started construction of its new state of the art ER which will open Spring 2026. With this, we anticipate parking may be a challenge for some our surgical patients and families. Parking spaces are limited but are available for all Surgical, obstetrics, and ER patients sharing this lot. If you arrive and find you are having a hard time finding a parking space, please note that we understand the challenges, please drive around the hospital and park near Hospital Entrance 1. When you enter this entrance, you can ask a volunteer to direct or take you back to the surgical waiting area to check in. We appreciate everyone?s understanding of these expected challenges while we build for your future. Report to the Outpatient Waiting Room, entrance under the green pavilion located off [address], at time __10 AM on date __03/08/25 . Planned Procedure Time: __1200 NOON .? Time changes happen often and if your time is changed the preop area will call you the afternoon before. - You and your visitor will be asked to self-screen and do not enter if you have any COVID symptoms. Please call surgeon if you need to reschedule. - A mask is optional within the hospital at this time. NOTHING TO EAT AFTER MIDNIGHT NOTHING TO DRINK 8 HOURS PRIOR TO SURGER PER DR BEE Take only the following medications with a SIP of water on the morning of surgery: ___NONE DO NOT STOP ANY OF YOUR OTHER PRESCRIPTION MEDICATIONS PRIOR TO SURGERY EXCEPT THE FOLLOWING Hold all vitamins and supplements for 3 days per anesthesiologist.LAST DOSE 03/05/25 PER PT Medications to discontinue per physician NONE Date to take last dose Please no make-up, nail bengali, hairspray, perfume, deodorant, or body powder the day of surgery.? No jewelry (including any body piercings) or valuables the day of surgery, leave them at home.? Please take a shower or bath the night before, or the morning of, surgery with an antibacterial soap.? Wear comfortable, loose fitting clothing.? Children are encouraged to wear pajamas. - Jewelry must be removed prior to entering the operating room.? Rings and piercings that are not removed may be cut off. - The hospital will not accept responsibility for valuables.? - Please leave all valuables, including medications, at home the day of surgery. If you are going home after surgery, a licensed lumber stacker driver must drive you home.? - NO public transportation without another adult if you receive anesthesia. - We recommend that an adult stay with you for 24 hours following discharge. - We also recommend that you do not drive, make important decision, drink alcoholic beverages, or take any drugs that were not prescribed by your health care provider for at least 24 hours after your discharge time. For Pediatric surgeries, we recommend two adults accompany the child home. Follow any additional instructions given to you from your surgeon. Telephone instructions given to __PATIENT and asked if any additional questions and then verbalized understanding. Patient advised to call surgeon office or pre surgery nurse liaison [phone] if any additional questions.
[2025-03-06 14:33] VITALS: BMI 47.6
--- NOTE | 2025-03-08 06:46 | PM.HPGS ---
History of Present Illness History of Present Illness Chief complaint: left carpal tunnel syndrome Narrative: Patient seen and examined in pre-operative holding area. No interval change in medical history or symptoms. Patient recalls previous discussion of benefits and alternatives to procedure. Continues to desire to proceed with left endoscopic possible open carpal tunnel release. Reviewed procedure, post-op expectations and risks including but not limited to bleeding, infection, injury to tendon/nerve/vessel, decreased hand function, stiffness, RSD, no change or worsening of symptoms. I discussed the possible use of assistants and their participation in the case. Patient stated understanding and signed the consent form wishing to proceed. Review of Systems Review of Systems: All systems reviewed & are unremarkable except as noted in HPI and below PMFSH Past Medical History Medical History Multiple lung nodules Sleep apnea Bipap GERD (gastroesophageal reflux disease) Diabetes mellitus HTN (hypertension) Surgical History Surgical History H/O vasectomy Family History Family History Mother Diabetes mellitus Kidney disease Father Malignant neoplasm of prostate Hypertension COPD (chronic obstructive pulmonary disease) Social History Social History Social History: Caffeine-coffee Smoking status: Never smoker Alcohol intake: never Substance use: never Substance use type: does not use Living arrangements: with family Occupation/Education: occupation Gender identity (if verbalized by the patient): Male Spiritual care concerns: No Meds Home Medications and Allergies Home Medications ?Medication ?Instructions ?Recorded ?Confirmed ?Type lisinopril 10 1 tablet PO DAILY 04/15/19 03/08/25 History mg-hydrochlorothiazide 12.5 mg tablet pantoprazole 40 mg tablet,delayed 40 mg PO QAM 04/15/19 03/08/25 History release (Protonix) Saccharomyces boulardii 1 tablet PO DAILY 12/19/24 03/08/25 History cholecalciferol (vitamin D3) 1 cap PO DAILY 12/19/24 03/08/25 History tarhgwqfcxz-rwl-ksxpblvdy-hrb 2 tablet PO DAILY 12/19/24 03/08/25 History 149-hyalur 500 mg-500 mg-66.7 mg tablet (Myvztazqzxe-Jvxwanpxvnf-ZPU (with antiox)) multivitamin 1 tablet PO DAILY 12/19/24 03/08/25 History tramadol 50 mg tablet 50 mg PO Q6H PRN pain #12 tabs 03/08/25 Rx Allergies Allergy/AdvReac Type Severity Reaction Status Date / Time No Known Allergies Allergy Verified 03/08/25 09:27 Exam Narrative: unchanged Assessment and Plan Assessment and plan (1) Carpal tunnel syndrome on both sides: Code(s): G56.03 - Carpal tunnel syndrome, bilateral upper limbs Status: Acute Assessment and Plan: cont as above
--- NOTE | 2025-03-08 06:47 | P.OP_ITS ---
Procedure Note - Detailed Date of Procedure 03/08/25 Pre-op Diagnosis left carpal tunnel syndrome Post-op Diagnosis Same Procedure Performed left ectr Surgeon Estrella Hull MD Shaving Machine Operator osmin metcalf pa-c Anesthesia MAC Description of Procedure INFORMED CONSENT: The patient was seen and examined and marked in the pre-op area.? The patient signed the consent form. PROCEDURE IN DETAIL:The patient taken back to OR on the stretcher in supine position. Time out performed with anesthesia, surgeon and staff agreeing on patient's name site and surgery to be performed SCDs were placed on the lower extremities and inflated. A tourniquet was placed on {left} upper extremity and antibiotics given IV After anesthesia administered sedation I injected {5}cc 1%lido with epi and 0.5% marcaine plain at the operative site The?{left upper extremity}?was prepped and draped in sterile fashion the??{left upper extremity} was? exsanguinated with Esmarch bandage and tourniquet inflated to 250mmHg I made a transverse incision in the {left} volar distal wrist crease through skin and dermis with 15 blade scalpel.? Littler scissors spread down to antebrachial fascia. A small incision was made in antebrachial fascia allowing access to Carpal tunnel. I proceeded with sequential dilation staying in line with the ring finger and hugging the hook of the hamate.? I then used the synovial elevator to free any adhesions from the underside of the transverse carpal ligament. Next I was able to insert the Microaire endoscopic carpal tunnel device with direct visualization of the transverse fibers on the monitor and proceeded with complete segmental retrograde release of the ligament in its entirety.? I irrigated with normal saline and closed with 4-0 monocryl for dermis and subcuticular closure. A dressing of Dermabond, 4x4, leah, and a volar splint was applied for patient safety, security, and comfort and secured with an jorge l bandage after the tourniquet was let down noting the hand was warm and well perfused. The patient was then awaken from anesthesia and transferred to the recovery room in stable condition.? Complications - none EBL- 0cc Disposition - home in stable condition Osmin Metcalf PA-C was essential for positioning, retraction, closure and dressing placement. [facility] Billing Surgery - Charge Forward: Surgery Billing ([id number] for osmin)
[2025-03-08 09:29] VITALS: BP 142/71; PULSE 65; RESP 18; TEMP 37; O2SAT 97; BMI 48.8
[2025-03-08] MEDS: LACTATED RINGERS 1,000 ML 30 ML IV CONT (09:32)
[2025-03-08] MEDS: ACETAMINOPHEN 500 MG TABLET 1000 MG PO (09:32)
--- NOTE | 2025-03-08 10:12 | WPDANESEPPF ---
Anes - Initial Pre Proc Eval Procedure: Operation Date: 03/08/25 11:00 Proposed Procedures p Left Endoscopic Carpal Tunnel Release, Possible Open - Estrella Hull MD Date/Time: 03/08/25 10:12 Surgeon: Estrella Hull MD Pre Op Diagnosis: left carpal tunnel syndrome Patient Data Age: 54 Gender: M Height: 1.7 m Weight: 141.4 kg Last Vital Signs Temp 98.6 F 03/08/25 09:29 Pulse 65 03/08/25 09:29 Resp 18 03/08/25 09:29 BP 142/71 H 03/08/25 09:29 Pulse Ox 97 03/08/25 09:29 O2 Del Method Room Air 03/08/25 09:29 Allergies Allergy/AdvReac Type Severity Reaction Status Date / Time No Known Allergies Allergy Verified 03/08/25 09:27 Home Medications ?Medication ?Instructions ?Recorded ?Confirmed ?Type lisinopril 10 1 tablet PO DAILY 04/15/19 03/08/25 History mg-hydrochlorothiazide 12.5 mg tablet pantoprazole 40 mg tablet,delayed 40 mg PO QAM 04/15/19 03/08/25 History release (Protonix) Saccharomyces boulardii 1 tablet PO DAILY 12/19/24 03/08/25 History cholecalciferol (vitamin D3) 1 cap PO DAILY 12/19/24 03/08/25 History vbbafirdtdn-bbd-prllcemew-hrb 2 tablet PO DAILY 12/19/24 03/08/25 History 149-hyalur 500 mg-500 mg-66.7 mg tablet (Jdnzxzvnybb-Mxnqbxymboh-TTA (with antiox)) multivitamin 1 tablet PO DAILY 12/19/24 03/08/25 History tramadol 50 mg tablet 50 mg PO Q6H PRN pain #12 tabs 03/08/25 Rx Laboratory Tests 03/08/25 09:37 POC Capillary Glucose 119 H mg/dl (65-105) Patient hx anesthesia problems: none Family hx anesthesia problems: none Results Review: All pre-operative results and documents have been reviewed as part of the pre-operative evaluation. [facility] Past Medical History Medical History Multiple lung nodules Sleep apnea Bipap GERD (gastroesophageal reflux disease) Diabetes mellitus HTN (hypertension) Surgical History Surgical History H/O vasectomy Family History Family History Mother Diabetes mellitus Kidney disease Father Malignant neoplasm of prostate Hypertension COPD (chronic obstructive pulmonary disease) Social History Social History Social History: Caffeine-coffee Smoking status: Never smoker Alcohol intake: never Substance use: never Substance use type: does not use Living arrangements: with family Occupation/Education: occupation Gender identity (if verbalized by the patient): Male Spiritual care concerns: No Anes - Eval Final PreProcedure Day of Procedure 03/08/25 10:12 Patient weight: morbidly obese Lungs: normal air movement Airway: Mallampati scale class 1 Neurological: alert and oriented Last oral intake: >/= 8 hours ASA classification: III Emergent: no Anesthetic plan: proceed Anesthesia type and monitoring: general GIVS and standard monitoring Results Review: All pre-operative results and documents have been reviewed as part of the pre-operative evaluation. BMI 48, STACIE on Bipap, pre DM, pt states he walks several miles several times weekly, no cp or sob. Informed Consent: The patient's anesthetic plan and its attendant risks and benefits were discussed with the patient/family/POA. Questions were solicited and answers provided to the satisfaction of the patient/family/POA.
[2025-03-08] MEDS: LIDO 1%/EPINEPHRINE 1:100,000 50 ML VIAL 10 ML INFILTRATE (11:00)
[2025-03-08] MEDS: BUPivacaine HCL 0.5% 10 ML AMP INFILTRATE (11:00)
[2025-03-08] MEDS: ceFAZolin 3 GM/D5W 100 ML 100 ML IVPB (11:00)
[2025-03-08 11:21] VITALS: BP 116/57; PULSE 58; RESP 16; O2SAT 92
[2025-03-08 11:51] VITALS: BP 104/59; PULSE 56; RESP 16
[2025-03-08 12:13] VITALS: BP 125/62; PULSE 58; RESP 16
== END 2025-03-08 12:30 | disposition home or self-care (01) ==
PROVIDERS: PCP Family Medicine; Visit Provider Plastic Surgery
PROC: 01N54ZZ Release Median Nerve, Percutaneous Endoscopic Approach (ICD-10-PCS; CPT 29848; principal; 2025-03-08 11:00)
DX: G56.02 Carpal tunnel syndrome, left upper limb (principal); I10 Essential (primary) hypertension; E11.9 Type 2 diabetes mellitus without complications; K21.9 Gastro-esophageal reflux disease without esophagitis; G47.33 Obstructive sleep apnea (adult) (pediatric); E66.01 Morbid (severe) obesity due to excess calories; Z68.42 Body mass index [BMI] 45.0-49.9, adult; Z79.891 Long term (current) use of opiate analgesic; Z99.89 Dependence on other enabling machines and devices; Z98.890 Other specified postprocedural states; Z80.42 Family history of malignant neoplasm of prostate
CPT/HCPCS: 29848; 82948; A9270; J0690; J2003; J2004; J2250; J2405; J2704; J3010; J7120